=== PATIENT | male | born 2000 | race Caucasian/White ===

== ENCOUNTER 2024-08-12 17:44 | Inpatient (IN) | payer MEDICAID, SELFPAY ==
--- NOTE | ~2024-08-12 | CT_ITS ---
CLINICAL HISTORY: Diffuse abdominal pain causing DKA CT of the abdomen and pelvis without intravenous contrast. No comparison. Findings: The liver is upper limits of normal in size. No definite gallstones are seen. No renal or ureteral stones. No hydronephrosis. The spleen and pancreas are unremarkable. There is moderate stool in the colon. No definite diverticulitis is seen. Suspect previous appendectomy. No bowel obstruction. The bladder is nondilated. There is a trace amount of fluid in the pelvis. There is mild nonspecific rectosigmoid wall thickening. Impression: Mild rectosigmoid wall thickening may be incidental. Mild colitis /proctitis is technically a possibility. Trace amount of fluid in the pelvis. Other findings as above. This document has been electronically signed by: Julio Whitfield MD on 08/12/2024 20:05:43
[2024-08-12 18:00] VITALS: BP 125/73; PULSE 55; RESP 18; TEMP 36.3; O2SAT 99; BMI 23.1
--- NOTE | 2024-08-12 18:01 | ED_ITS ---
HPI - Nausea/Vomiting/Diarrhea General Chief complaint: General Medical Stated complaint: diabetic high feels weak Time Seen by Provider: 08/12/24 18:21 Source: patient and family Mode of arrival: ambulatory Limitations: no limitations History of Present Illness ED Provider: DR. Chinchilla HPI Narrative: 24-year-old male history of insulin-dependent diabetes with history of DKA presented today with 2 days of fever, upper respiratory symptoms, coughing, he also complaining of diffuse abdominal pain associated with nausea, vomiting, and nonbloody watery diarrhea, patient is unable to take p.o. intake stated that his blood sugar at home was running high. No sick contacts, no recent travel, no prolonged immobilization, no lower extremity swelling or tenderness. Related Data Allergies Allergy/AdvReac Type Severity Reaction Status Date / Time No Known Allergies Allergy Verified 08/12/24 18:02 Review of Systems 2 Review of Systems: All other systems are reviewed and are negative Constitutional: Reports as per HPI and Reports no additional constitutional complaints Eyes: Reports as per HPI and Reports no additional eye complaints Reports system reviewed and no additional complaints, except as documented Cardiovascular: Reports as per HPI and Reports no additional cardiovascular complaints Respiratory: Reports as per HPI and Reports no additional respiratory complaints Gastrointestinal: Reports as per HPI and Reports no additional gastrointestinal complaints Genitourinary: Reports no additional female genitourinary complaints Musculoskeletal: Reports no additional musculoskeletal complaints Skin/Breast: Reports system reviewed and no additional complaints, except as docu Psychiatric: Reports no additional psychiatric complaints Endocrine: Reports no additional endocrine complaints Hematologic/Lymphatic: Reports no additional hematologic/lymphatic complaints Allergic/Immunologic: Reports no additional allergic/immunologic complaints Reports system reviewed and no additional complaints, except as documented and Reports Abnormal speech present [facility] Social History Social History Smoked in Last 30 Days: No Use of substances other than those prescribed or required for medical reasons: Yes Substance Use Type: Marijuana Substance Use Frequency: Occasionally Advance Directives: No Advance Directives Information Provided: No Do you have a plan to hurt others: No Plan Physical Exam 2 Vital Signs: Vital Signs: Last Vital Signs Temp 99.9 F 08/12/24 21:04 Pulse 50 08/12/24 21:04 Resp 16 08/12/24 21:04 BP 128/69 08/12/24 21:04 Pulse Ox 99 08/12/24 21:04 O2 Del Method Room Air 08/12/24 21:04 BMI result Body Mass Index 23.1 Vital signs have been reviewed and appear to be correct. Blood pressure elevated. Heart rate normal. Respiratory rate normal. Temperature normal. Oxygen saturation normal. Appearance: Alert. Oriented X3. No acute distress. Head: Normal external exam. Normocephalic. Atraumatic. No [place] signs noted. No raccoon eyes noted Eyes: PERRLA. EOMI. Conjunctiva and sclera normal. Eyelids normal. ENT: TM's Normal. Pharynx normal. Uvula midline. Dry mucous membranes. No trismus noted. No drooling noted. No muffled voice noted. Neck: Normal inspection. Neck supple. FROM. No adenopathy. Thyroid Normal. No meningeal signs. No neck mass noted. CVS: Normal heart rate and rhythm. Heart sound normal. No murmurs noted. Pulses normal throughout. Respiratory: No respiratory distress. Painless inspiration. Breath sounds normal. No wheezes/rales/rhonchi noted. Chest nontender. No accessory muscle usage noted or decreased air movement noted. Abdomen: Soft, diffuse tenderness, no rebound tenderness, no guarding. Bowel sounds normal in all 4 quadrants. No distention noted. No organomegaly noted. No visible injury noted. Back: No CVA tenderness. Full range of motion noted. Skin: Skin warm and dry. Normal skin color. Normal skin turgor. No rashes/lesions/lacerations noted. Extremities: No lower extremity edema. Extremities exhibit normal range of motion. Extremities nontender. Neuro: Oriented X 3. Cranial nerve exam: II-XII are grossly intact No motor deficit. No sensory deficit. Reflexes normal. Course Course Course Narrative: This is an RME: Additional HPI, ROS, PE not included below will be deferred to primary provider. RME assessment and note performed by: Erica Vides PA-C This is a 13-blcu-fbe-male, type 1 diabetic on insulin, who presents to the ER with complaints of abdominal pain, nausea, diarrhea, sore throat since this AM. Hx of DKA as a child, sxs feel similar. Plan: bring back Reevaluation(s) Reevaluation #1: 24-year-old male with type 1 diabetes managed by insulin presented with intractable vomiting, patient is positive for influenza A, no discrete DKA. Patient received 3 L of normal saline in the ED with multiple doses of Zofran for nausea and vomiting with persistent of inability to tolerate p.o. intake, patient at risk for DKA. Will admit. Time: 21:37 Medications Administered Discontinued Medications Generic Name Dose Route Start Last Admin Trade Name Freq PRN Reason Stop Dose Admin Sodium Chloride 1,000 mls @ 999 mls/hr 08/12/24 18:31 08/12/24 20:25 Ns IV 08/12/24 19:31 Infused .Q1H1M ONE Infusion Sodium Chloride 1,000 mls @ 999 mls/hr 08/12/24 18:57 08/12/24 20:25 Ns IV 08/12/24 19:57 Infused .Q1H1M ONE Infusion Ketorolac Tromethamine 15 mg 08/12/24 20:55 08/12/24 21:06 Ketorolac Tromethamine 15 Mg/Ml Vial IVPUSH 08/12/24 20:56 15 mg ONCE ONE Administration Ondansetron HCl 4 mg 08/12/24 18:35 08/12/24 18:59 Ondansetron Hcl 4 Mg/2 Ml Vial IVPUSH 08/12/24 18:36 4 mg ONCE ONE Administration Ondansetron HCl 4 mg 08/12/24 20:55 08/12/24 21:07 Ondansetron Hcl 4 Mg/2 Ml Vial IVPUSH 08/12/24 20:56 4 mg ONCE ONE Administration Medical Decision Making Differential Diagnosis Differential Diagnoses: The differential diagnosis associated with the presentation includes (DKA, hyperglycemia, influenza a, COVID-19 infection, RSV, colitis, gastroenteritis, gastritis, dehydration, electrolyte derangement, severe anemia.) Admission/Observation Consideration of admission/observation: Escalation of care including admission/observation considered Lab Data MDM Lab Attestation statement: I reviewed the patient's lab results. 08/12/24 18:28 08/12/24 18:28 Labs: Lab Results 08/12/24 08/12/24 08/12/24 Range/Units 18:06 18:28 18:31 WBC 7.1 (4.8-10.8) X10*3/uL RBC 5.14 (4.60-5.80) X10*6/uL Hgb 14.8 (14.0-18.0) g/dl Hct 43.1 (42.0-52.0) % MCV 83.9 (80.0-98.0) fL MCH 28.8 (27.0-33.0) pg MCHC 34.3 (31.0-36.0) g/dl RDW 12.7 (11.0-16.0) % Plt Count 412 H (160-400) X10*3/uL MPV 10.6 (9.4-12.4) fL Immature Gran % (Auto) 0.3 (0.0-0.4) % Neut % (Auto) 64.9 (45-73) % Lymph % (Auto) 16.2 L (20-40) % [place] % (Auto) 17.2 H (2-11) % Eos % (Auto) 0.0 (0-4) % Baso % (Auto) 1.4 (0-2) % Lymph # (Auto) 1.1 L (1.2-4.9) X10*3/uL [place] # (Auto) 1.2 (0.1-1.2) X10*3/uL Eos # (Auto) 0.0 (0.0-0.4) X10*3/uL Baso # (Auto) 0.1 (0.0-0.2) X10*3/uL Abs Immat Gran (auto) 0.02 (0.00-0.03) X10*3/uL Absolute Neuts (auto) 4.6 (2.0-8.3) x10*3/uL Absolute Nucleated RBC 0.000 (0.0-0.012) X10*3/uL Nucleated RBC % (auto) 0.0 (0.0-0.2) /100WBC VBG pH 7.46 H (7.32-7.43) VBG pCO2 28 mmHg VBG pO2 21 mmHg VBG HCO3 20 L (22-26) mmol/L VBG O2 Saturation < 30.0 % VBG Base Excess -1.3 mmol/L Sodium 138 (135-145) mmol/L Potassium 4.4 (3.3-5.1) mmol/L Chloride 104 (96-108) mmol/L Carbon Dioxide 19 L (22-29) mmol/L Anion Gap 19 (12-20) BUN 11 (9-16) mg/dL Creatinine 0.95 (0.5-1.4) mg/dL Estim Creat Clear Calc 128.5 Estimated GFR > 60 POC Glucose 138 H (60-115) mg/dL Random Glucose 172 H (60-115) mg/dL Calcium 9.8 (8.4-10.2) mg/dL Magnesium 1.8 (1.6-2.6) mg/dL Total Bilirubin 0.5 (0.0-1.0) mg/dL Direct Bilirubin 0.2 (0.0-0.5) mg/dL AST 27 (5-37) U/L ALT 22 (0-40) U/L Alkaline Phosphatase 73 (39-117) U/L Troponin I High Sens < 2.7 (<3.5-35.0) ng/L Total Protein 8.2 H (6.5-8.0) g/dL Albumin 4.7 (3.5-5.0) g/dL Beta-Hydroxybutyrate 2.96 H (0.02-0.27) mmol/L Influenza Type A (PCR) (Negative) Influenza Type B (PCR) (Negative) RSV RNA Qual (PCR) (Negative) SARS-CoV-2 RNA (RT-PCR) (Negative) S. pyogenes GrpA [place] (Negative) 08/12/24 08/12/24 Range/Units 19:19 20:49 WBC (4.8-10.8) X10*3/uL RBC (4.60-5.80) X10*6/uL Hgb (14.0-18.0) g/dl Hct (42.0-52.0) % MCV (80.0-98.0) fL MCH (27.0-33.0) pg MCHC (31.0-36.0) g/dl RDW (11.0-16.0) % Plt Count (160-400) X10*3/uL MPV (9.4-12.4) fL Immature Gran % (Auto) (0.0-0.4) % Neut % (Auto) (45-73) % Lymph % (Auto) (20-40) % [place] % (Auto) (2-11) % Eos % (Auto) (0-4) % Baso % (Auto) (0-2) % Lymph # (Auto) (1.2-4.9) X10*3/uL [place] # (Auto) (0.1-1.2) X10*3/uL Eos # (Auto) (0.0-0.4) X10*3/uL Baso # (Auto) (0.0-0.2) X10*3/uL Abs Immat Gran (auto) (0.00-0.03) X10*3/uL Absolute Neuts (auto) (2.0-8.3) x10*3/uL Absolute Nucleated RBC (0.0-0.012) X10*3/uL Nucleated RBC % (auto) (0.0-0.2) /100WBC VBG pH (7.32-7.43) VBG pCO2 mmHg VBG pO2 mmHg VBG HCO3 (22-26) mmol/L VBG O2 Saturation % VBG Base Excess mmol/L Sodium (135-145) mmol/L Potassium (3.3-5.1) mmol/L Chloride (96-108) mmol/L Carbon Dioxide (22-29) mmol/L Anion Gap (12-20) BUN (9-16) mg/dL Creatinine (0.5-1.4) mg/dL Estim Creat Clear Calc Estimated GFR POC Glucose 202 H (60-115) mg/dL Random Glucose (60-115) mg/dL Calcium (8.4-10.2) mg/dL Magnesium (1.6-2.6) mg/dL Total Bilirubin (0.0-1.0) mg/dL Direct Bilirubin (0.0-0.5) mg/dL AST (5-37) U/L ALT (0-40) U/L Alkaline Phosphatase (39-117) U/L Troponin I High Sens (<3.5-35.0) ng/L Total Protein (6.5-8.0) g/dL Albumin (3.5-5.0) g/dL Beta-Hydroxybutyrate (0.02-0.27) mmol/L Influenza Type A (PCR) POSITIVE A (Negative) Influenza Type B (PCR) NEGATIVE (Negative) RSV RNA Qual (PCR) NEGATIVE (Negative) SARS-CoV-2 RNA (RT-PCR) NEGATIVE (Negative) S. pyogenes GrpA [place] Negative (Negative) Independent Interpretation I performed an independent interpretation of an: CT Scan (Abdomen and pelvis:Mild rectosigmoid wall thickening may be incidental. Mild colitis /proctitis is technically a possibility. Trace amount of fluid in the pelvis. Other findings as above.) Radiology Impression Discussion of test interpretation with radiology: I have reviewed the radiologist's reading. Discharge Plan Discharge Clinical Impression: Influenza A, Intractable vomiting, Hyperglycemia Patient Disposition: Admitted As Inpatient Print Language: Kiswahili
[2024-08-12 18:09] LABS: Glucose, Whole Blood 138 mg/dL (60-115)
--- NOTE | 2024-08-12 18:10 | ECG_ITS ---
Test Reason : WEAKNESS Blood Pressure : */* mmHG Vent. Rate : 44 BPM Atrial Rate : 44 BPM P-R Int : 124 ms QRS Dur : 98 ms QT Int : 464 ms P-R-T Axes : -16 70 57 degrees QTcB Int : 396 ms Marked sinus bradycardia with sinus arrhythmia Abnormal ECG No previous ECGs available Referred By: Erica Vides Electronically Signed By: HELADIO ROWAN
[2024-08-12 18:32] LABS: MANUAL DIFF FLAG NO
[2024-08-12] MEDS: 0.9 % Sodium Chloride 1,000 ML 999 ML IV ×3 (18:32→21:57)
[2024-08-12 18:37] LABS: VBG Base Excess -1.3 mmol/L; VBG HCO3 20 mmol/L (22-26); VBG O2 % Saturation < 30.0 %; VBG pCO2 28 mmHg; VBG pH 7.46 (7.32-7.43); VBG pO2 21 mmHg
--- NOTE | 2024-08-12 18:39 | PC.NURSE ---
Pt comes to ED today with c/o elevated POC, n/v x2 days. A&Ox3 Pt actively dry heaving and vomiting. POC in triage WNL however Pt reports giving himself insulin prior to arrival. 20g to LAC IVF per MAR. Awaiting alb results.
[2024-08-12 18:40] LABS: Venous Blood Gas Refer to POC result
[2024-08-12 18:44] LABS: Basophils Absolute Auto 0.1 X10*3/uL (0.0-0.2); Basophils Percent Auto 1.4 % (0-2); Hematocrit 43.1 % (42.0-52.0); Hemoglobin 14.8 g/dl (14.0-18.0); Imm Gran Abs Auto 0.02 X10*3/uL (0.00-0.03); Imm Gran Pct Auto 0.3 % (0.0-0.4); Lymphocytes Absolute Auto 1.1 X10*3/uL (1.2-4.9); Lymphocytes Percent Auto 16.2 % (20-40); Mean Corpuscular HGB Conc 34.3 g/dl (31.0-36.0); Mean Corpuscular Hemoglobin 28.8 pg (27.0-33.0); Mean Corpuscular Volume 83.9 fL (80.0-98.0); Mean Platelet Volume 10.6 fL (9.4-12.4); Monocytes Absolute Auto 1.2 X10*3/uL (0.1-1.2); Monocytes Percent Auto 17.2 % (2-11); Neutrophils Absolute Auto 4.6 x10*3/uL (2.0-8.3); Neutrophils Percent Auto 64.9 % (45-73); Platelet Count 412 X10*3/uL (160-400); Red Blood Count 5.14 X10*6/uL (4.60-5.80); Red Cell Distribution Width 12.7 % (11.0-16.0); White Blood Count 7.1 X10*3/uL (4.8-10.8)
[2024-08-12 18:53] LABS: Alanine Aminotransferase 22 U/L (0-40); Albumin Level 4.7 g/dL (3.5-5.0); Alkaline Phosphatase 73 U/L (39-117); Anion Gap 19 (12-20); Aspartate Amino Transferase 27 U/L (5-37); Beta-Hydroxybutyrate 2.96 mmol/L (0.02-0.27); Bilirubin Direct 0.2 mg/dL (0.0-0.5); Bilirubin Total 0.5 mg/dL (0.0-1.0); Blood Urea Nitrogen 11 mg/dL (9-16); Calcium 9.8 mg/dL (8.4-10.2); Carbon Dioxide 19 mmol/L (22-29); Chloride 104 mmol/L (96-108); Creatinine Clr Calc Pharmacy 128.5; Estimated Glomerular Filt Rate > 60; Glucose Random 172 mg/dL (60-115); Magnesium 1.8 mg/dL (1.6-2.6); Potassium 4.4 mmol/L (3.3-5.1); Sodium 138 mmol/L (135-145); Total Protein 8.2 g/dL (6.5-8.0)
[2024-08-12] MEDS: ondansetron HCL 4 MG/2 ML VIAL IVPUSH ×2 (18:59→21:07)
[2024-08-12 19:01] LABS: Troponin-I High Sensitivity < 2.7 ng/L (<3.5-35.0)
--- NOTE | 2024-08-12 19:09 | PC.NURSE ---
assumed care of patient, patient in stretcher c/o of diffuse abdominal pain and nausea last medicated 20 minutes ago. IVF running at this time and awaiting lab result.
--- OUTSIDE RECORDS SUMMARY | 2024-08-12 19:09 | XMS_ITS | Continuity of Care Document ---
Author Organization [facility] Address [address] [place] [address] Phone Care Team Providers Care Cocoa Room Operator Name Role Phone Larry Grimm MD Unavailable Unavailable Allergies, Adverse Reactions, Alerts Substance Reaction Status Criticality No Known Allergies Active No Inform ation Medications Medication Instructions Dosage Effective Dates (start - stop) Status Comments lithium carbonate 300 mg capsule take 2 capsule by oral route every day for at bedtime 600 MG - Active Advance Directives Directive Yes / No Effective Date File Name No Information Encounters Encounter Description Practice Location Reason(s) For Visit Diagnoses Date Provider [facility], [address] [place] [address], [address] [place] [address] tel:[phone] OP A NBrit 40 Rushing No Information 2023 Alfa Juarez. [address] [place] [address], [address] [place] [address], . tel:[phone] [facility], [address] [place] [address], [address] [place] [address] tel:[phone] OP A NBrit 40 Rushing Medication Management (chief complaint)Dep ression (chief complaint) 2023 Alfa Juarez. [address] [place] [address], [address] [place] [address], . tel:[phone] [facility], [address] [place] [address], [address] [place] [address] tel:[phone] OP A NBrit 40 Rushing Medication Management (chief complaint)Dep ression (chief complaint) 2023 Alfa Juarez. [address] [place] [address], [address] [place] [address], . tel:[phone] [facility], [address] [place] [address], [facility], tel:[phone] OP A NBrit 40 Rushing Medication Management (chief complaint)Dep ression (chief complaint) Body mass index (BMI) 23.0-23.9, adult 2023 Alfa Juarez. [address] [place] [address], [address] [place] [address], . tel:[phone] [facility], [address] [place] [address], [facility], tel:[phone] OP A NBrit 40 Rushing 2023 Batsheva Harris. [address] [place] [address], [address] [place] [address], [place]. tel:[phone] [facility], [address] [place] [address], [facility], tel:[phone] OP A NBrit 40 Rushing 2023 Batsheva Harris. [address] [place] [address], [address] [place] [address], [place]. tel:[phone] [facility], [address] [place] [address], [facility], tel:[phone] OP A NBrit 40 Rushing Medication Management (chief complaint)Dep ression (chief complaint) 2023 Alfa Juarez. [address] [place] [address], [address] [place] [address], . tel:[phone] [facility], [address] [place] [address], [facility], tel:[phone] OP A NBrit 40 Rushing Medication Management (chief complaint)Dep ression (chief complaint) 2023 Alfa Juarez. [address] [place] [address], [address] [place] [address], [place]. tel:[phone] [facility], [address] [place] [address], [facility], tel:[phone] OP A NBrit 40 Rushing 2022 Kevin Rosenberg. [address] [place] [address], [address] [place] [address], [place]. tel:[phone] [facility], [address] [place] [address], [facility], tel:[phone] OP A NBrit 40 Rushing Medication Management (chief complaint)Dep ression (chief complaint) Body mass index (BMI) 22.0-22.9, adult 2022 Alfa Juarez. [address] [place] [address], [address] [place] [address], . tel:[phone] [facility], [address] [place] [address], [facility], tel:[phone] OP A NBrit 40 Rushing 2022 Kevin Shakira. [address] [place] [address], [address] [place] [address], . tel:[phone] [facility], [address] [place] [address], [facility], tel:[phone] OP A NBrit 40 Rushing Body mass index (BMI) 22.0-22.9, adult 2022 Alfa Juarez. [address] [place] [address], [address] [place] [address], [place]. tel:[phone] [facility], [address] [place] [address], [facility], tel:[phone] OP A NBrit 40 Rushing 2022 Alphonsoramsey Murrell. [address] [place] [address], [address] [place] [address], . tel:[phone] As per patient privacy policy some of the clinical information may not be visible. Family History Family Member Type Diagnosis Age At Onset No Information Payers Payer name Insurance type Covered green party ID Arelis bell(s) Vickie Burr [id number] Social History Type Description Quantity Date Captured Comments Sex Male Smoking Status No Information Sexual Orientation Straight or heterosexual Feb Gender Identity Male Chief Complaint And Reason For Visit No Information Plan Of Treatment Date Type Action Status Goal Dietary manageme nt education, guidance, and counseling completed Goal Tobacco cessation counseling completed Goal Lifestyle education regardin g diet completed Goal Tobacco cessation counseling completed Goal Dietary manageme nt education, guidance, and counseling completed Future Order: Lab Order [facility] Cu stom Tox Panel v3 ([id number]), Sent on: Sent Future Order: Lab Order CBC (INC LUDES DIFF/PLT) ([id number]), Sent on: Sent Future Order: Lab Order COMPREHE NSIVE METABOLIC PANEL ([id number]), Sent on: Sent Future Order: Lab Order VALPROIC ACID ([id number]), Sent on: Sent Future Order: Lab Order CBC (INC LUDES DIFF/PLT) ([id number]), Sent on: Sent Future Order: Lab Order COMPREHE NSIVE METABOLIC PANEL ([id number]), Sent on: Sent Future Order: Lab Order HEMOGLOB IN A1C (496), Sent on: Sent Future Order: Lab Order LIPID PA JAY ([id number]), Sent on: Sent Future Order: Lab Order TSH, 3RD GENERATION ([id number]), Sent on: Sent Future Order: Lab Order VALPROIC ACID ([id number]), Sent on: Sent Future Order: Lab Order VITAMIN B12/FOLATE, SERUM PANEL ([id number]), Sent on: Sent Future Order: Lab Order VITAMIN D,25-OH,TOTAL,IA ([id number]), Sent on: Sent History Of Present Illness Encounter Date Complaint History Of Prese nt Illness Depression The client repor ts functioning as somewhat difficult. The client presents with difficulty concentrating but denies depressed mood, difficulty falling asleep, difficulty staying asleep, diminished interest or pleasure, feelings of invulnerability, increased energy or thoughts of or suicide. The client denies any chronic pain, headache, irritability, nausea, sweating, trembling, urinary frequency, vomiting and weight gain. Medication Management Jewel perez for follow-up on bipolar type II and ADHD. He is accompanied [place] He has been taking his Depakote and Strattera as ordered and without side effect. He reports a stable mood with no more than 1 day of depression and 1 day of increased energy at a time and not very frequently. There is no suicidal ideation and PHQ-9 is 7 out of 27. He reports his concentration is still impaired and the Strattera no longer has any real effect on improving it. He would like to try a stimulant which I think might be reasonable. Only substance use is marijuana which she does not use daily and I explained to him that he would have to reduce his use or stop it if he wants to use a stimulant so the cannabis does not interfere with his concentration and he agrees to this. Medication Management Jewel angel for treatment of Bipolar II Disorder, ADHD, and nicotine dependence. The patient reports he is medication compliant and taking Depakote and Strattera every day as prescribed. Tolerating medications well. He did mention that Strattera works well with focus, but does have some complaints about task-switching and gets tunnel vision after a few hours and this effect is not distressing. The patient denies feeling depressed and reports mood is good . The patient denies manic symptoms. The patient says it is difficult to fall asleep and stay asleep at night and gets about four to five hours of sleep at night because he does not have air conditioning at his house. The patient reports he starts sweating and stays up once he wakes up from the heat. The patient denies feeling depressed. The patient denies manic symptoms. He reports that he has applied for jobs but remains unemployed and is frustrated with the process of finding a job. The patient is considering using NRT for quitting cigarettes but wants to defer trying to quit. The patient remains smoking cannabis and reports he has not increased his intake and amount used has been consistent. Depression The client does not present with depressed mood, difficulty concentrating, difficulty falling asleep, difficulty staying asleep, diminished interest or pleasure, excessive worry, fatigue, restlessness or thoughts of or suicide. The client denies any chronic pain, headache, irritability, nausea, sweating, trembling, urinary frequency, vomiting and weight gain. Depression The client repor ts functioning as somewhat difficult. The client presents with difficulty concentrating, difficulty falling asleep and difficulty staying asleep but denies decreased need for sleep, depressed mood, diminished interest or pleasure, excessive worry, fatigue, feelings of guilt, increased energy or thoughts of or suicide. The client denies any chronic pain, headache, irritability, nausea, sweating, trembling, urinary frequency, vomiting and weight gain. Medication Management Jewel ret urns for tx of Bipolar II depressed, ADHD, nicotine dependence. He reports that he is not depressed and PHQ9 is 9/27 with some issues with sleep and concentration. There is no SI or psychosis. He does not present with hypomania and no symptoms of this reported in last several months. He is stressed by difficulty finding a job; still lives with grandparents. He feels stable on his VPA without side effects. Doubling the strattera to 80 mg helped for a while with concentration then seemed to wear off. He is seeing his commercial lines account executive and A1C is around 7; also seeing neuro re neuropathy. He is back in therapy but not sure he sees the point of it.HE is still vaping nicotine but less than before and also using less cannabis; I encouraged him to quit nicotine especially with risks from diabetes. Depression The client repor ts functioning as somewhat difficult. The client presents with difficulty concentrating and fatigue but denies decreased need for sleep, depressed mood, difficulty falling asleep, difficulty staying asleep, diminished interest or pleasure, feelings of guilt, feelings of invulnerability, increased energy, hallucinations, paranoia, restlessness or thoughts of or suicide. The client denies any chronic pain, headache, irritability, nausea, sweating, trembling, urinary frequency, vomiting and weight gain. Medication Management Jewel ret urns for tx of bipolar II and ADHD. He does well on VPA without side effects. Minimal depression, PHQ9 is 7/27 and no SI. Sleep is good, has some fatigue. He denies any hypomania in last several months and none noted on exam tonight. He reports that strattera 40 mg had a tendency to help him focus better but was not fully effective, he ran out and didn't get a refill has been off for a while but tolerated it well. He just lost a job and is looking for a new one; things are going well with his girlfriend and him. He has cut out vaping and dramatically reduced cannabis use. Blood sugars still not stable although sees endocrine and on insulin. Medication Management Jewel eagle urns for tx of Bipolar II and ADHD. He is euthymic and no signs of depression reports no hypomanic symptoms in last several months on VPA; no side effects of VPA. There is no SI. He still uses daily cannabis in evening but is willing to reduce use as it will conflict with trying meds for his ADHD. He quit smoking for last 2 months and cut back on vaping. He is looking for work and finding it a bit frustrating. He still fluctuates between periods of poor attention and task completion and periods of hyperfocus. Depression The client repor ts functioning as somewhat difficult. The client presents with difficulty concentrating, difficulty falling asleep, difficulty staying asleep and fatigue but denies depressed mood, diminished interest or pleasure, feelings of guilt or thoughts of or suicide. The client denies any chronic pain, headache, irritability, nausea, sweating, trembling, urinary frequency, vomiting and weight gain. Medication Management Jewel eagle chris for tx of probable bipolar ii and ADHD, also vaping nicotine again and using cannabis (does not wish to try to stop either at this time although I counseled him about them). His PHQ9 is 8 (3 points for poor concentration) and there is no SI. He denies being depressed and he denies hypomanic symptoms since last visit. He took the VPA until he ran out a week ago and tolerated it well. On it he felt less agarwal and less reactive to stress, didn't get labs done yet however. He still has significant chronic concentration difficulties. He brought in the ASRS filled out by his sister who sees 9/18 symptoms mostly inattentive, and by his grandparents based on when he was a child who record 16/18 symptoms in clinical range when he was a child, all consistent with his self report and previous ADHD diagnosis as a child. Depression There is improve ment of initial symptoms. The client reports functioning as somewhat difficult. The client presents with difficulty concentrating but denies decreased need for sleep, depressed mood, difficulty falling asleep, difficulty staying asleep, diminished interest or pleasure, fatigue, feelings of guilt, increased energy, hallucinations, paranoia or thoughts of or suicide. The client denies any chronic pain, headache, irritability, nausea, sweating, trembling, urinary frequency, vomiting and weight gain. Instructions Date Instruction Additional Infor tigreion Giving encouragement to exercise Related to Body mass index [BMI] 23.0-23.9, adult Dietary management e ducation, guidance, and counseling Related to Body mass index [BMI] 23.0-23.9, adult Lifestyle education regarding di et Related to Body mass index [BMI] 22.0-22.9, adult Giving encouragement to exercise Related to Body mass index [BMI] 22.0-22.9, adult Giving encouragement to exercise Related to Body mass index [BMI] 22.0-22.9, adult Dietary management e ducation, guidance, and counseling Related to Body mass index [BMI] 22.0-22.9, adult As per patient privacy policy some of the clinical information may not be visible. Assessments Type Assessment Date No Information
--- OUTSIDE RECORDS SUMMARY | 2024-08-12 19:09 | XMS_ITS | Clinical Summary ---
Author Organization [facility] Address [address] [place] [address] Care Team Providers Care Platen Press Operator Apprentice Name Role Phone Larry Pringle MD Primary Care Provider [phone] Allergies No known active allergies Medications Medication Sig Dispensed Refills Start Date End Date Status glucose blood test strip Use to test BG 7 x per day 0 09/13/2016 Active Urine Glucose-Ketones Test STRP For testing urine when blood glucose >300 0 06/04/2015 Active acetone, urine, test (Ketostix) strip Use to test urine when blood sugars over 250 on 2 consecutive checks and when ill 25 each 0 07/04/2020 Active Additional Information Patient not taking.Reason: Other, Reported on 04/21/2023 Blood Glucose Monitoring Suppl (OneTouch Verio Flex System) w/Device KITIndications:Type 1 diabetes mellitus with diabetic polyneuropathy (HCC) 1 Device by Does not apply route continuous. 1 kit 0 09/22/2022 Active glucose blood (OneTouch Verio) test stripIndications:Typ e 1 diabetes mellitus with diabetic polyneuropathy (HCC) Use to test blood sugar 4 times daily as instructed 200 each 12 09/22/2022 Active OneTouch Delica Lancets 33G MISCIndications:Type 1 diabetes mellitus with diabetic polyneuropathy (HCC) Use to test blood sugar 4 times daily as instructed. 200 each 12 09/22/2022 Active Glucagon (Baqsimi Two Pack) 3 MG/DOSE POWD spray or apply 3 mg inside Nose as needed (for severe hypoglycemia). 1 each 1 04/21/2023 Active Continuous Blood Gluc Sensor (Dexcom G7 Sensor) MISCIndications:Type 1 diabetes mellitus with diabetic polyneuropathy (HCC) 1 Unspecified by Does not apply route continuous. Change every 10 days 9 each 1 10/09/2023 Active Insulin Pen Needle 32G X 4 MM MISCIndications:Type 1 diabetes mellitus with diabetic polyneuropathy (HCC) Use to inject insulin 4 times daily 200 each 6 01/15/2024 Active gabapentin (NEURONTIN) 300 MG capsuleIndications:T ype 1 diabetes mellitus with diabetic polyneuropathy (HCC),Paresthesia Take 2 capsules (600 mg total) by mouth 3 (three) times a day. 180 capsule 2 04/03/2024 Active Fiasp FlexTouch 100 UNIT/ML SOPN INJECT 5-15 UNITS UNDER THE SKIN 3 (THREE) TIMES A DAY BEFORE MEALS. 0 03/26/2024 Active omeprazole (PriLOSEC) 20 MG capsule TAKE 1 CAPSULE BY MOUTH EVERY DAY IN THE MORNING BEFORE BREAKFAST 0 02/03/2024 Active Insulin Degludec (Tresiba FlexTouch) 100 UNIT/ML SOPNIndications:Type 1 diabetes mellitus with diabetic polyneuropathy (HCC) Inject 35 Units under the skin daily. 45 mL 3 04/16/2024 Active Injection Device for Insulin (InPen 298-Cixm-Yaqpseh-Huma sp) DEVIIndications:Type 1 diabetes mellitus with diabetic polyneuropathy (HCC) 1 Device by Does not apply route 3 (three) times a day with meals. 1 each 0 04/16/2024 Active Active Problems Problem Noted Date Diagnosed Date Mixed hyperlipidemia 12/08/2020 Type 1 diabetes mellitus with diabetic polyneuro guillaume 07/04/2020 DKA, type 2, not at goal 01/18/2020 DKA, type 1, not at goal 01/18/2020 Social History Tobacco Use Types Packs/Day Years Used Date Smoking Tobacco: Unknown Tobacco Cessation:Counseling Given: Not Answered Alcohol Use Standard Drinks/Week Comments Never 0 (1 standard drink = 0.6 oz pur e alcohol) Sex and Gender Information Value Date Recorded Sex Assigned at Male 01/17/2020 10:22 PM EDT Gender Identity Male 04/15/2024 12:21 PM EDT Sexual Orientation Not on file Job Start Date Occupation Industry Not on file Not on file Not on file Last Filed Vital Signs Vital Sign Reading Time Taken Comments Blood Pressure 108/71 04/16/2024 11:25 AM EDT Pulse 76 04/16/2024 11:25 AM EDT Temperature 36.4 ??C (97.5 ??F) 03/04/2021 11:47 AM E DT Respiratory Rate 11 01/20/2020 12:00 PM EDT Oxygen Saturation 99% 01/20/2020 12:00 PM EDT Inhaled Oxygen Concentration - - Weight 77.7 kg (171 lb 3.2 oz) 04/16/2024 11:25 AM EDT Height 182.9 cm (6') 10/06/2023 9:45 AM EDT Body Mass Index 23.22 10/06/2023 9:45 AM EDT Plan of Treatment Health Maintenance Due Date Last Done Comments Hepatitis C Screening 1998 COVID-19 Vaccine (#1) 1998 Pneumococcal Vaccine (1 of 2 - PCV) 2004 DTap / Tdap / Td (5 - Tdap) 2009 06/0 06/1999, 1998, 1998, Additional history exists Depression Screening 2010 Diabetes: Eye Exam (No Retinopathy) 2016 Diabetes: Foot Exam 2016 Preventative Health Evaluation 2016 Influenza Vaccine (#1) 2024 Hemoglobin A1C Due 07/13/2024 01/11/2024, 0 10/04/2023, 04/17/2023, Additional history exists Diabetes: Microalbumin Test 01/10/2025 01/11/2024, 0 07/07/2020 Hepatitis B Vaccines Completed 1998, 1998, 1998 RSV Ped < 20 months Aged Out No longe r eligible based on patient's age to complete this topic Advance Directives For more information, please contact: [phone] Latest Code Status on File Code Status Date Activated Date Inactivated Comments Full Code 01/18/2020 6:30 AM 01/20/2020 9:42 PM This code status was ascertained in the following way: discussion with patient . Care Teams Platen Press Operator Apprentice Relationship Specialty Start Date End Date Larry Pringle MD PCP - General Internal Medicine 08/07/20
--- OUTSIDE RECORDS SUMMARY | 2024-08-12 19:09 | XMS_ITS | Clinical Summary ---
Author Organization [facility] Address [address] [place] [address] Care Team Providers Care Tanker Driver Name Role Phone Lrary Pringle MD Primary Care Provider [phone] Cami Bush PhD Unavailable [phone]- [phone] Holley Fuller MD Unavailable [phone] Reyes Stephen PsyD Unavailable [phone] Cassi Berkowitz RN Unavailable [phone] Lisa Arita STEEL RULE DIE MAKER APPRENTICE Unavailable [phone] Jl Mcclain APRN Unavailable [phone] Darnell Cruz MD Unavailable [phone] Allergies No known active allergies Medications Medication Sig Dispensed Refills Start Date End Date Status glucagon powder (BAQSIMI) intranasal deviceIndication s:Hypoglycemia 3 mg into one nostril (left) once as needed (for severe hypoglycemia). Active insulin aspart (NovoLOG FlexPen) 100 UNIT/ML prefilled pen injectionIndicat ions:Type 1 Diabetes Mellitus Inject 5 Units under the skin 3 (three) times a day before meals. Plus correctional scale up to 30 units daily. Active insulin degludec (TRESIBA FLEXTOUCH) 100 UNIT/ML prefilled pen injectionIndicat ions:Type 1 Diabetes Mellitus Inject 40 Units under the skin nightly. Active atomoxetine (Strattera) 100 MG capsule Take 1 capsule by mouth every 24 hours. 10/30/2023 Active Continuous Glucose Sensor (Dexcom G7 Sensor) Misc 1 UNSPECIFIED BY DOES NOT APPLY ROUTE CONTINUOUS. CHANGE EVERY 10 DAYS 08/10/2023 Active Continuous Glucose Transmitter (Dexcom G6 Transmitter) Misc Dexcom G6 Transmitter Quantity: 1 Refills: 0 Start: 25-Nov-202011/25/2020 Active divalproex er (DEPAKOTE ER) 500 MG 24 hr tablet Take 1,000 mg by mouth daily. 10/16/2023 Active OMEprazole (PriLOSEC) 20 MG capsuleIndicatio ns:Gastroesophag eal reflux disease without esophagitis TAKE 1 CAPSULE BY MOUTH EVERY DAY IN THE MORNING BEFORE BREAKFAST 90 capsule 1 08/05/2024 Active OMEprazole (PriLOSEC) 20 MG capsuleIndicatio ns:Gastroesophag eal reflux disease without esophagitis Take 1 capsule (20 mg total) by mouth every morning before breakfast. 90 capsule 2 11/08/2023 08/05/19 25 Discontinued Active Problems Problem Noted Date Diagnosed Date Metabolic acidosis 04/13/2022 Borderline personality disorder 09/30/2021 My Safety Plan 09/29/2021 Overview (09/29/2021): Images from the original note were not included. Wee Web No information on file. MY SAFETY PLAN Name: Jewel Rehman Date: 09/29/2021 MR#: [id number] The one thing that is most important to me and worth living for is: Money Step 1 - Warning Signs [thoughts, images, mood, situation, behavior] that a crisis may be developin. Pt stated I have none I go with the flow 2. 3. Step 2 - Coping strategies: things I can do to take my mind off of my problems without contacting others [relaxation technique; physical exercise] 1. Playing video games 2. Exercising 3. Spending time with pets Step 3 - People and social settings that provide distraction 1. Name: Sister Phone: 2. Name: Phone: 3. Place: my room is a neutral space 4. Place: Step 4 - People whom I can ask for help: 1. Name: Sister Phone: 2. Name: Phone: 3. Name: Phone: Step 5 - Professionals or agencies I can contact during a crisis 1. Name: Phone: 2. Name: Phone: 3. Name: Phone: Additional Resources: [place] infoline 211, Suicide Prevention Lifeline 4-573-483-PMUK (4912), Text Hello to 469622, 364 Step 6 - Making the environment safe/access to guns: No access to weapons, no stock piled medications This tool has been adapted from the [employer] Safety Plan [facility] Form 906624 R10-18 Pg 1 of 1 Cannabis use disorder, severe, dependence 2021 Overdose 09/26/2021 Lactic acidosis 09/26/2021 Hypokalemia 09/26/2021 Hypomagnesemia 09/26/2021 Dehydration 05/23/2021 Prolonged QT interval 05/23/2021 Diabetic ketoacidosis withou t coma associated with type 1 diabetes mellitus 11/20/2020 Thrombocytosis 07/25/2020 Anxiety and depression 07/25/2020 Noncompliance with medications 07/25/2020 High anion gap metabolic acidosis 07/17/2019 Hyponatremia 07/17/2019 Tachycardia 07/17/2019 Type 1 diabetes 07/17/2019 SIRS (systemic inflammatory response syndrome) 0 07/17/2019 Leukocytosis 07/17/2019 DKA (diabetic ketoacidosis) 06/30/2016 Overview (03/28/2023): Regulatory diagnosis update for 03/26/23 TRACIE (acute kidney injury) 06/30/2016 Hypernatremia 06/30/2016 DKA, type 1 06/30/2016 Resolved Problems Problem Noted Date Diagnosed Date Resolved Date COVID-19 04/13/2022 09/06/2023 DKA (diabetic ketoacidosis) 05/23/2021 09/07/2023 Major depressive disorder, r ecurrent severe without psychotic features 03/28/2021 09/30/2021 Dehydration with hypernatremia 06/30/2016 09/07/2023 Encounters Date Type Department Care Team Description 08/03/2024 Refill [facility] [facility] Larry Pringle [address] [facility] [address] [place] [phone] Venu Rebekah, COMMUNICATIONS MANAGER Gastroesophageal reflux disease without esophagitis from Last 3 Months Immunizations Name Administration Dates Next Due DTaP, Unspecified 11/25/1999, 9,1998,1998 Hep B, Unspecified 1998,1998, 998 Hib 11/25/1999, 9,1998,1998 IPV 05/05/1999,1998,1998 Influenza Inactivated/Split Preservative Free IM 04/05/2021(),07/26/2020() MMR 05/05/1999 Varicella 05/05/1999 Social History Tobacco Use Types Packs/Day Years Used Date Smoking Tobacco: Former Cigarettes Smokeless Tobacco: Never Alcohol Use Standard Drinks/Week Comments Not Currently 0 (1 standard drink = 0.6 oz pur e alcohol) AUDIT-C Answer Date Recorded Q1: How often do you have a drink containing alcohol? Never 04/13/2022 Q2: How many drinks containi ng alcohol do you have on a typical day when you are drinking? Patient does not drink Q3: How often do you have si x or more drinks on one occasion? Never 04/13/2022 PHQ-2 Answer Date Recorded PHQ-2 Total Score 2 11/08/2023 Sex and Gender Information Value Date Recorded Sex Assigned at Male 09/29/2021 11:52 AM EDT Gender Identity Male 09/29/2021 11:52 AM EDT Sexual Orientation Heterosexual (straight) 09/29 11:52 AM EDT Last Filed Vital Signs Vital Sign Reading Time Taken Comments Blood Pressure 118/72 11/08/2023 10:24 AM EDT Pulse 89 11/08/2023 10:24 AM EDT Temperature 36.6 ??C (97.8 ??F) 04/20/2022 2:23 PM ED T Respiratory Rate 18 04/20/2022 2:23 PM EDT Oxygen Saturation 97% 11/08/2023 10: 24 AM EDT Inhaled Oxygen Concentration - - Weight 78.8 kg (173 lb 12.8 oz) 024 10:24 AM EDT Height 182.9 cm (6') 11/08/2023 10:24 AM EDT Body Mass Index 23.57 11/08/2023 10:24 AM EDT Plan of Treatment Upcoming Encounters Date Type Department Care Team (Late st Contact Info) Description 11/11/2024 2:00 PM EDT Office Visit [facility]. Larry Pringle [address] [facility] [address] [place] [address] Larry Pringle MD [address] [facility] [address] [place] [address] Health Maintenance Due Date Last Done Comments Ophthalmology Exam 2008 DTaP/Tdap/Td Vaccines (5 - Tdap) 2009 11/25/1999, 1998, 1998, Additional history exists HPV Vaccines (1 - Male 3-dos e series) 2013 Pneumococcal Vaccine: Pediat mayela (0-5 Years) and At-Risk Patients (6 to 49 Years) (1 of 2 - PCV) 2017 Microalbumin/Creatinine Rati o Urine 07/07/2021 07/07/2020 Influenza Vaccine 01/25/2024 COVID-19 Vaccine ( - 2023-2 5 season) 2024 06/29/2021, 11/11/2020, 10/20/2020 Hemoglobin A1C 04/12/2024 01/11/2024, 09/24, 04/17/2023, Additional history exists Foot Exam 11/07/2024 11/08/2023, 10/24, 11/08/2023, Additional history exists Creatinine with GFR 01/10/2025 01/11/2024, 04/20/2022, 04/16/2022, Additional history exists Lipid Panel 01/10/2025 01/11/2024 Hepatitis B Vaccines Completed 1998, 1998, 1998 HIV Screening Completed 01/11/2024 Hepatitis C Virus Screening Completed 01/11/2024 Procedures Procedure Name Priority Date/Time Associated Diagnosis Comments HIV 1/2 AG/AB CMIA REFLEX TO CONFIRMATION Routine 01/11/2024 1:27 PM EDT Healthcare maintenance HEMOGLOBIN A1C WITH ESTIMATED AVERAGE GLUCOSE Routine 01/11/2024 1:27 PM EDT Healthcare maintenance LIPID PANEL REFLEX DIRECT LDL Routine 01/11/2024 1:27 PM EDT Healthcare maintenance COMPREHENSIVE METABOLIC PANEL Routine 01/11/2024 1:27 PM EDT Healthcare maintenance HEPATITIS C VIRUS (HCV) ANTIBODY Routine 01/11/2024 1:27 PM EDT from Last 3 Months or Most Recently Relevant to Health Maintenance Results * (ABNORMAL) Lipid Panel Reflex Direct LDL (01/11/2024 1:27 PM EDT) Cholesterol, Total 166 <200 mg/dL [facility] Cholesterol, HDL 44 > OR = 40 mg/dL [facility] Triglycerides 104 <150 mg/dL [facility] LDL Cholesterol 102(H) mg/dL (calc) [facility] Comment: Reference range: <100 Desirable range <100 mg/dL for primary prevention; ?? <70 mg/dL for patients with CHD or diabetic patients with > or = 2 CHD risk factors. LDL-C is now calculated using the Gilmar-Hernandez calculation, which is a validated novel method providing better accuracy than the Friedewald equation in the estimation of LDL-C. Gilmar VERNON et al. FAITH. 2013;310(19): 6218-0177 (http://education.[employer]/faq/GXC886) Cholesterol/HDL Ratio 3.8 <5.0 (calc) [facility] Non HDL Chol. (LDL+VLDL) 122 <130 mg/dL (calc) [facility] Comment: For patients with diabetes plus 1 major ASCVD risk factor, treating to a non-HDL-C goal of <100 mg/dL (LDL-C of <70 mg/dL) is considered a therapeutic option. Blood specimen (specimen) Blood specimen / Unknown 01/11/2024 1:27 PM EDT 01/11/2024 1:28 PM EDT Narrative [facility] - 01/12/2024 4:36 AM EDT FASTING:YES FASTING: YES [facility] COMMUNICATIONS MANAGER LAB BLOOD ORDERABLE S Performing Organization Address [facility] Co de Phone Number [employer] [address] [place] [phone] * HIV 1/2 Ag/Ab CMIA Reflex to Confirmation (01/11/2024 1:27 PM EDT) HIV Ag/Ab, 4th Gen NON-REACT LIZZIE NON-REACT LIZZIE [facility] Comment: HIV-1 antigen and HIV-1/HIV-2 antibodies were not detected. There is no laboratory evidence of HIV infection. PLEASE NOTE: This information has been disclosed to you from records whose confidentiality may be protected by state law. ??If your state requires such protection, then the state law prohibits you from making any further disclosure of the information without the specific written consent of the person to whom it pertains, or as otherwise permitted by law. A general authorization for the release of medical or other information is NOT sufficient for this purpose. ?? For additional information please refer to http://education.[employer].[facility] [place]/faq/VQB032 (This link is being provided for informational/ educational purposes only.) The performance of this assay has not been clinically validated in patients less than 2 years old. Blood specimen (specimen) Blood specimen / Unknown 01/11/2024 1:27 PM EDT 01/11/2024 1:28 PM EDT Narrative [facility] - 01/12/2024 4:36 AM EDT FASTING:YES FASTING: YES [facility] COMMUNICATIONS MANAGER LAB BLOOD ORDERABLE S Performing Organization Address [facility]/ZIP Co de Phone Number [employer] [address] [place] [address] * (ABNORMAL) HEMOGLOBIN A1C WITH ESTIMATED AVERAGE GLUCOSE (01/11/2024 1:27 PM EDT) [facility] Hemoglobin A1C 8.0(H) <5.7 % of total Hgb [facility] Comment: For someone without known diabetes, a hemoglobin A1c value of 6.5% or greater indicates that they may have diabetes and this should be confirmed with a follow-up test. For someone with known diabetes, a value <7% indicates that their diabetes is well controlled and a value greater than or equal to 7% indicates suboptimal control. A1c targets should be individualized based on duration of diabetes, age, comorbid conditions, and other considerations. Currently, no consensus exists regarding use of hemoglobin A1c for diagnosis of diabetes for children. ?? Estimated Average Glucose (mg/dL) 183 mg/dL [facility] Estimated Average Glucose (mmol/L) 10.1 mmol/L [facility] Comment: ? This test was performed on the Ana Laura jordan c503 platform. Effective 08/28/23, a change in test platforms from the Hunter Senior Policy Analyst to the Ana Laura jordan c503 may have shifted HbA1c results compared to historical results. Based on laboratory validation testing conducted at [facility], the Ana Laura platform relative to the Hunter platform had an average increase in HbA1c value of < or = 0.3%. This difference is within accepted variability established by the National Glycohemoglobin Standardization Program. Note that not all individuals will have had a shift in their results and direct comparisons between historical and current results for testing conducted on different platforms is not recommended. Blood specimen (specimen) Blood specimen / Unknown 01/11/2024 1:27 PM EDT 01/11/2024 1:28 PM EDT Narrative [facility] - 01/12/2024 4:36 AM EDT FASTING:YES FASTING: YES [facility] COMMUNICATIONS MANAGER LAB BLOOD ORDERABLE S [employer] [address] [place] [phone] * HEPATITIS C VIRUS (HCV) ANTIBODY (01/11/2024 1:27 PM EDT) [facility] Hepatitis C Antibody NON-REACT LIZZIE NON-REACT LIZZIE [facility] Comment: HCV antibody was non-reactive. There is no laboratory evidence of HCV infection. In most cases, no further action is required. However, if recent HCV exposure is suspected, a test for HCV RNA (test code 95827) is suggested. For additional information please refer to http://education.Skim[employer]/faq/XKF32g3 (This link is being provided for informational/ educational purposes only.) 01/11/2024 1:27 PM EDT 01/11/2024 1:28 PM EDT Narrative [facility] - 01/12/2024 4:36 AM EDT FASTING:YES FASTING: YES [facility] LAB BLOOD ORDERABLE S [employer] [address] [place] [phone] * Comprehensive Metabolic Panel (01/11/2024 1:27 PM EDT) Glucose 95 65 - 99 mg/dL [facility] Comment: ? Fasting reference interval Blood Urea Nitrogen (BUN) 11 7 - 25 mg/dL [facility] Creatinine 0.90 0.60 - 1.24 mg/dL [facility] Creatinine w/ eGFR 122 > OR = 60 mL/min/1. 73m2 [facility] BUN/Creatinine Ratio SEE NOTE: (calc) [facility] Comment: ?? Not Reported: BUN and Creatinine are within ?? reference range. ? Sodium 139 135 - 146 mmol/L [facility] Potassium 5.1 3.5 - 5.3 mmol/L [facility] Chloride 103 98 - 110 mmol/L [facility] CO2 25 20 - 32 mmol/L [facility] Calcium 9.7 8.6 - 10.3 mg/dL [facility] Protein, Total 6.8 6.1 - 8.1 g/dL [facility] Albumin 4.4 3.6 - 5.1 g/dL [facility] Globulin 2.4 1.9 - 3.7 g/dL (calc) [facility] Albumin/Globuli n Ratio 1.8 1.0 - 2.5 (calc) [facility] Bilirubin, Total 0.4 0.2 - 1.2 mg/dL [facility] Alkaline Phosphatase 69 36 - 130 U/L [facility] Aspartate Aminotrans (AST) 15 10 - 40 U/L [facility] Alanine Aminotrans (ALT) 10 9 - 46 U/L [facility] Blood specimen (specimen) Blood specimen / Unknown 01/11/2024 1:27 PM EDT 01/11/2024 1:28 PM EDT Narrative [facility] - 01/12/2024 4:36 AM EDT FASTING:YES FASTING: YES Rebekah Lea COMMUNICATIONS MANAGER LAB BLOOD ORDERABLE S [employer] [address] [place] [phone] from Last 3 Months or Most Recently Relevant to Health Maintenance Advance Directives * Full Code (Latest Code Status on File) Date Activated Date Inactivated Comments 04/13/2022 2:14 PM 04/20/2022 2:14 PM * Full Code Date Activated Date Inactivated Comments 09/28/2021 12:15 PM 04/11/2022 2:25 PM Question Answer Comments Decision Thoroughly Discussed with: Patient * Full Code Date Activated Date Inactivated Comments 09/26/2021 10:57 AM 09/28/2021 11:56 AM * Full Code Date Activated Date Inactivated Comments 05/23/2021 4:35 AM 09/26/2021 2:34 AM * Full Code Date Activated Date Inactivated Comments 03/28/2021 11:39 AM 05/23/2021 2:51 AM Care Teams Tanker Driver Relationship Specialty Start Date End Date Larry Pringle MD [address] [facility] [address] [place] [phone] PCP - General Internal Medicine 07/24/20 Cami Bush, PhD 12[address] [place] [address] Clinical Psychologist Psychology 12/31/20 Holley Fuller MD [address] [place] [address] Physician Psychiatry, General 01/04/21 Reyes Stephen PsyD [address] [place] [address] Clinical Psychologist Psychology 01/05/21 Cassi Berkowitz, SHEREE [address] [place] [address] Registered Nurse 01/07/21 Lisa Arita LCSW [address] [place] [address] Supervisor Plastics Social Work 04/14/21 Jl Mcclain, COMMUNICATIONS MANAGER [address] [place] [address] Nurse Practitioner Psychiatry, General 04/16/21 Darnell Cruz MD [address] [place] [address] Psychiatry, General 04/20/21
--- OUTSIDE RECORDS SUMMARY | 2024-08-12 19:09 | XMS_ITS | Encounter Summary ---
Author Organization [facility] Address [address] [place] [address] Care Team Providers Care Brush Material Preparer Name Role Phone Larry Pringle MD Primary Care Provider [phone] Cami Bush PhD Unavailable [phone]- [phone] Holley Fuller MD Unavailable [phone] Reyes Stephen PsyD Unavailable [phone] Cassi Berkowitz RN Unavailable [phone] Lisa Arita SPARE HAND CARDING Unavailable [phone] Jl Mcclain GAS DISPENSER Unavailable [phone] Darnell Cruz MD Unavailable [phone] Encounter Details Date Type Department Care Team (Late st Contact Info) Description 03/31/2023 Scanned Document [facility] [place] Dr. Larry Pringle [address] [facility] [address] [place] [address] Larry Pringle MD [address] [facility] [address] [place] [address] Social History Tobacco Use Types Packs/Day Years Used Date Smoking Tobacco: Never Smokeless Tobacco: Never Alcohol Use Standard Drinks/Week Comments Yes 0 (1 standard drink = 0.6 oz pur e alcohol) Social AUDIT-C Answer Date Recorded Q1: How often do you have a drink containing alcohol? Never 04/13/2022 Q2: How many drinks containi ng alcohol do you have on a typical day when you are drinking? Patient does not drink Q3: How often do you have si x or more drinks on one occasion? Never 04/13/2022 Sex and Gender Information Value Date Recorded Sex Assigned at Male 09/29/2021 11:52 AM EDT Gender Identity Male 09/29/2021 11:52 AM EDT Sexual Orientation Heterosexual (straight) 09/29 11:52 AM EDT documented as of this encounter Plan of Treatment Upcoming Encounters Date Type Department Care Team (Late st Contact Info) Description 11/11/2024 2:00 PM EDT Office Visit [facility] [place] Dr. Larry Pringle [address] [phone] Larry Pringle MD [address] [place] [address] documented as of this encounter Visit Diagnoses Not on filedocumented in this encounter Care Teams Brush Material Preparer Relationship Specialty Start Date End Date Larry Pringle MD [address] [place] [phone] PCP - General Internal Medicine 07/24/20 Cami Bush, PhD [facility] [place] [phone] Clinical Psychologist Psychology 12/31/20 Holley Fuller MD [address] [place] [phone] Physician Psychiatry, General 01/04/21 Reyes Stephen PsyD [address] [place] [phone] Clinical Psychologist Psychology 01/05/21 Cassi Berkowitz, RN [address] [place] [address] Registered Nurse 01/07/21 Lisa Arita LCSW [address] [place] [address] Sales Rep Social Work 04/14/21 Jl Mcclain APRN [address] [place] [address] Nurse Practitioner Psychiatry, General 04/16/21 Darnell Cruz MD [address] [place] [address] Psychiatry, General 04/20/21 documented as of this encounter
--- OUTSIDE RECORDS SUMMARY | 2024-08-12 19:09 | XMS_ITS | Encounter Summary ---
Author Organization [facility] Address [address] [place] [address] Care Team Providers Care Php Programmer Name Role Phone Larry Pringle MD Primary Care Provider [phone] Cami Bush PhD Unavailable [phone]- 0000 Holley Fuller MD Unavailable [phone] Reyes Stephen PsyD Unavailable [phone] Cassi Berkowitz RN Unavailable [phone] Lisa Arita PLATFORM OPERATIONS DIRECTOR Unavailable [phone] Jl Mcclain SENIOR PROPERTY ACCOUNTANT Unavailable [phone] Darnell Cruz MD Unavailable [phone] Reason for Visit * Reason Comments Medication Refill Encounter Details Date Type Department Care Team (Late st Contact Info) Description 08/03/2024 Refill [facility] [place] Dr. Larry Pringle [address] [place] [address] Rebekah Lea SENIOR PROPERTY ACCOUNTANT [address] [place] [address] Gastroesophageal reflux disease without esophagitis Social History Tobacco Use Types Packs/Day Years [...] Description 11/11/2024 2:00 PM EDT Office Visit [facility] [place] Dr. Larry Pringle [address] [phone] Larry Pringle MD [address] [place] [phone] documented as of this encounter Visit Diagnoses Diagnosis Gastroesophageal reflux disease without esophagitis Esophageal reflux documented in this encounter Care Teams Php Programmer Relationship Specialty Start Date End Date Larry Pringle MD [address] [place] [phone] PCP - General Internal Medicine 07/24/20 Cami Bush, PhD [address] [address] Clinical Psychologist Psychology 12/31/20 Holley Fuller MD [address] [address] Physician Psychiatry, General 01/04/21 Reyes Stephen PsyD [address] [place] [address] Clinical Psychologist Psychology 01/05/21 Cassi Berkowitz, RN [address] [place] [address] Registered Nurse 01/07/21 Lisa Arita LCSW [address] [place] [address] Rn Progressive Care Unit Social Work 04/14/21 Jl Mcclain APRN [address] [place] [address] Nurse Practitioner Psychiatry, General 04/16/21 Darnell Cruz MD [address] [place] [address] Psychiatry, General 04/20/21 documented as of this encounter
--- OUTSIDE RECORDS SUMMARY | 2024-08-12 19:09 | XMS_ITS | Clinical Summary ---
Author Organization [address] [place] [address] [place] [phone] Phone Care Team Providers Care Career Services Representative Name Role Phone Larry Pringle MD Primary Care Provider [phone] Allergies No known active allergies Medications acetone, urine, test strip Use to test urine when blood sugars over 250 on 2 consecutive checks and when ill 07/04/19 21 Active blood-glucose meter (OneTouch Verio Flex meter) misc 1 Device by Does not apply route continuous. 09/23/19 23 Active blood-glucose sensor (DEXCOM G7 SENSOR MISC) 1 Unspecified by Does not apply route continuous. Change every 10 days 10/09/19 24 Active glucose blood (Blood Glucose Test) test strip Use to test BG 7 x per day 09/14/19 17 Active insulin pen,reusable,BT lispro (INPEN, FOR HUMALOG, BLUE SUBQ) Injection Device for Insulin (InPen 747-[id number] g-Fiasp) NELSON Patient si Device by Does not apply route 3 (three) times a day with meals. 04/16/20 24 Active lancets (OneTouch Delica Plus Lancet) 33 gauge Use to test blood sugar 4 times daily as instructed. 09/23/19 23 Active urine glucose-ketones test strip For testing urine when blood glucose >300 06/04/20 15 Active gabapentin (NEURONTIN) 300 mg capsule Take 2 capsules (600 mg total) by mouth 3 (three) times a day. 04/03/20 24 Active glucagon (Baqsimi) 3 mg/actuation nasal spray spray or apply 3 mg inside Nose as needed (for severe hypoglycemia). 04/21/20 Active insulin aspart, niacinamide, (Fiasp FlexTouch U-100 Insulin) 100 unit/mL (3 mL) injection pen INJECT 5-15 UNITS UNDER THE SKIN 3 (THREE) TIMES A DAY BEFORE MEALS. 03/26/20 Active insulin degludec (Tresiba FlexTouch U-100) 100 unit/mL (3 mL) injection pen Inject 35 Units under the skin daily. 04/16/20 Active omeprazole (PriLOSEC) [address] capsule TAKE 1 CAPSULE BY MOUTH EVERY DAY IN THE MORNING BEFORE BREAKFAST 02/03/20 Active pen needle, diabetic (Insupen Pen Needle) 32 gauge x 5/32 needle Use to inject insulin 4 times daily 01/15/20 Active blood-glucose sensor ([employer] G7 Sensor) deviceIndications: Type 1 diabetes mellitus with diabetic polyneuropathy (CMS/HCC) 1 UNSPECIFIED BY DOES NOT APPLY ROUTE CONTINUOUS. CHANGE EVERY 10 DAYS 9 each 3 06/20/20 Active blood sugar diagnostic ([employer] Verio test strips) test stripIndications:T ype 1 diabetes mellitus with diabetic polyneuropathy (CMS/HCC) Use to test sugars 3x daily. 100 each 3 06/20/20 Active Active Problems Problem Noted Date Diagnosed Date Mixed hyperlipidemia 12/08/2020 Type 1 diabetes mellitus with diabetic polyneuro guillaume 07/04/2020 DKA, type 1, not at goal 01/18/2020 DKA, type 2, not at goal 01/18/2020 Social History Tobacco Use Types Packs/Day Years Used Date Smoking Tobacco: Unknown Alcohol Use Standard Drinks/Week Comments Never 0 (1 standard drink = 0.6 oz pur e alcohol) Sex and Gender Information Value Date Recorded Sex Assigned at Not on file Legal Sex Male 4:18 PM EST Gender Identity Not on file Sexual Orientation Not on file Obstetrics History Last Filed Vital Signs Vital Sign Reading Time Taken Comments Blood Pressure 108/71 04/16/2024 11:25 AM EDT Sitting Left arm Pulse 76 04/16/2024 11:25 AM EDT Temperature - - Respiratory Rate - - Oxygen Saturation - - Inhaled Oxygen Concentration - - Weight 77.7 kg (171 lb 3.2 oz) 04/16/2024 11:25 AM EDT Height 182.9 cm (6') 10/06/2023 9:45 AM EDT Body Mass Index 23.22 10/06/2023 9:45 AM EDT Plan of Treatment Upcoming Encounters Date Type Department Care Team (Late st Contact Info) Description 10/01/2024 1:20 PM EDT Office Visit [facility] [place] [address] [place] [id number] Rosamaria Dasilva, Cory Rodriguez MD [address] [place] [address] Health Maintenance Due Date Last Done Comments Diabetes: Annual Foot Exam 2008 Diabetes: Annual Retina Eye Exam 2008 HPV Vaccines (1 - Male 3-dose series) 2013 DTaP,Tdap,and Td Vaccines (1 - Tdap) 2017 Hepatitis B Vaccines (1 of 3 - 19+ 3-dose series) 2017 Pneumococcal Vaccine: Pediatrics (0 to 5 Years) and At-Risk Patients (6 to 64 Years) (1 of 2 - PCV) 2017 Depression Screening 05/25/2022 Social Influencers of Health Screening 05/25/2022 COVID-19 Vaccine ( - season) 2024 Influenza Vaccine (#1) 2024 Diabetes: Blood Sugar Control Test (HGBA1C) 07/13/2024 01/11/2024, 01/11/2024, 01/18/2020 Diabetes: Annual Urine Albumin-Creatinine Ratio (uACR) 01/10/2025 01/11/2024 Diabetes: Annual GFR (Glomerular Filtration Rate) 01/10/2025 01/11/2024, 01/11/2024, 01/20/2020, Additional history exists Cholesterol Screening (Lipid Panel) 01/10/2029 01/11/2024, 01/11/2024 HIV Screening Completed 01/11/2024 Hepatitis C Screening Completed 01/11/2024 HIB Vaccines Aged Out No longer eligi ble based on patient's age to complete this topic Hepatitis A Vaccines Aged Out No long er eligible based on patient's age to complete this topic IPV Vaccines Aged Out No longer eligi ble based on patient's age to complete this topic MMR Vaccines Aged Out No longer eligi ble based on patient's age to complete this topic Meningococcal ACWY Vaccine Aged Out N o longer eligible based on patient's age to complete this topic Meningococcal B Vacine Aged Out No lo nger eligible based on patient's age to complete this topic RSV Immunization Patients Under 20 months Aged Out No longer eligible based on patient's age to complete this topic Varicella Vaccines Aged Out No longer eligible based on patient's age to complete this topic Procedures Procedure Name Priority Date/Time Associated Diagnosis Comments HEPATITIS C SCREENING Routine 01/11/2024 HIV SCREENING Routine 01/11/2024 URINE ALBUMIN CREATININE RATIO Routine 01/11/2024 ANNUAL BMP BLOOD TEST Routine 01/11/2024 HEMOGLOBIN A1C Routine 01/11/2024 LIPID PANEL Routine 01/11/2024 from Last 3 Months or Most Recently Relevant to Health Maintenance Results * Urine Albumin Creatinine Ratio (01/11/2024) [facility] Urine Albumin Creatinine Ratio abstracted [facility] Provider HEALTH MAINTENANCE Final Result * Annual BMP Blood Test (01/11/2024) [facility] Annual BMP Blood Test abstracted [facility] Provider HEALTH MAINTENANCE Final Result * HIV Screening (01/11/2024) [facility] HIV Screening abstracted [facility] Provider HEALTH MAINTENANCE Final Result * Hepatitis C Screening (01/11/2024) [facility] Hepatitis C Screening abstracted [facility] Provider HEALTH MAINTENANCE Final Result * (ABNORMAL) Hemoglobin A1c (01/11/2024) [facility] Hemoglobin A1C 8.0(A) <=5.7 % Blood Venous blood specimen / Unknown Historical Provider LAB BLOOD ORDERABLES Xenia l Result * (ABNORMAL) Lipid panel (01/11/2024) LDL/HDL Ratio 4 <=5 Triglycerides 114 <=150 mg/dL Cholesterol 176 <=200 mg/dL HDL 46 >=40 mg/dL LDL Cholesterol 108(A) <=100 mg/dL Blood Venous blood specimen / Unknown Historical Provider LAB BLOOD ORDERABLES Xenia l Result from Last 3 Months or Most Recently Relevant to Health Maintenance Insurance [place]ICA[place] - [place] Care Teams Career Services Representative Relationship Specialty Start Date End Date Larry Pringle MD PCP - General Internal Medicine 08/07/20
[2024-08-12 19:13] VITALS: BP 133/66; PULSE 59; RESP 16; TEMP 36.8; O2SAT 100
--- NOTE | 2024-08-12 19:23 | MHC.EDTECH ---
This tech took over care of pt at 1900,rounded and introduced self to pt,sars/flu/rsv and strep obtained and sent to lab,patient is very nauseous at this time RN at bedside,call stevens in reach
[2024-08-12 19:31] LABS: IDNOW Serial# 08D9AD1C; Strep A Nucleic Acid Negative (Negative)
[2024-08-12 20:14] LABS: Influenza A PCR POSITIVE (Negative); Influenza B PCR NEGATIVE (Negative); Resp Syncy Virus RNA Qual PCR NEGATIVE (Negative); SARS COV2 PCR INHOUSE NEGATIVE (Negative)
--- NOTE | 2024-08-12 20:50 | MHC.EDTECH ---
POC taken and is 202,Hope RN made aware
[2024-08-12 20:52] LABS: Glucose, Whole Blood 202 mg/dL (60-115)
[2024-08-12 21:04] VITALS: BP 128/69; PULSE 50; RESP 16; TEMP 37.7; O2SAT 99
[2024-08-12] MEDS: Ketorolac Tromethamine 15 MG/ML VIAL IVPUSH (21:06)
[2024-08-12 21:54] VITALS: BP 128/69; PULSE 50; RESP 16; TEMP 37.7; O2SAT 99
[2024-08-12] MEDS: Oseltamivir Phosphate 75 MG CAPSULE PO (22:01)
[2024-08-12] MEDS: Enoxaparin Sodium 40 MG/0.4 ML SYRINGE SUBCUT (22:01)
--- NOTE | 2024-08-12 22:06 | P.HPHOSP_ITS ---
History of Present Illness Date of Service: 08/12/24 Attending physician on admission: Chiquis Sosa Chief Complaint: abd pain, nausea, vomiting Patient is a 24-year-old male with a past medical history significant for insulin-dependent diabetes, history DKA as a child, diabetic neuropathy, who presented to the ED due to generalized abdominal pain, intractable vomiting, watery diarrhea fever, cough x2 days. He reports he has been unable to tolerate anything by mouth since yesterday. He reports this feels similar to his history of DKA. Initially reported watery diarrhea to the ED provider but denies this with me. He also reports that he uses marijuana daily. Review of Systems 2 Constitutional: Constitutional: Denies chills, Denies fever(s) and Denies headache(s) Eyes: Eyes: Denies change in vision and Denies photophobia ENT: Denies headache(s), Reports nasal congestion and Reports nasal discharge Cardiovascular: Cardiovascular: Denies chest pain, Denies rapid heart rate, Denies lightheadedness, Denies palpitations, Denies dyspnea and Denies dyspnea on exertion Respiratory: Respiratory: Reports chest congestion, Reports cough, Denies dyspnea, Denies dyspnea on exertion and Denies wheezing Gastrointestinal: Gastrointestinal: Reports abdominal pain, Denies melena, Denies hematochezia, Denies coffee ground emesis, Reports diarrhea, Reports nausea and Reports vomiting Genitourinary: Genitourinary: Denies hematuria, Denies difficulty urinating, Denies urinary frequency and Denies urinary urgency Musculoskeletal: Musculoskeletal: Denies myalgias Integumentary/Breasts: Skin/Breast: Denies rash Neurologic: Denies confusion and Denies headache(s) Psychiatric: Psychiatric: Denies confusion Endocrine: Endocrine: Denies palpitations Hematologic/Lymphatic: Hematologic/Lymphatic: Denies easy bleeding and Denies easy bruising Allergic/Immunologic: Allergic/Immunologic: Denies wheezing [facility] Medical History (Updated 08/12/24 @ 22:10 by Olga Niño PA-C) Insulin dependent type 1 diabetes mellitus Diabetic neuropathy Functional capacity: independent ambulation Social History Patient Tobacco Use Status: Never used Tobacco Smoked in Last 30 Days: No Use of substances other than those prescribed or required for medical reasons: Yes Substance Use Type: Marijuana Substance Use Frequency: Occasionally Advance Directives: No Advance Directives Information Provided: No Do you have a plan to hurt others: No Plan Nutrition Risks: No Nutritional Risk Narrative: vapes daily but none the past few days, no etoh, uses marijuana daily Meds Allergies Allergy/AdvReac Type Severity Reaction Status Date / Time No Known Allergies Allergy Verified 08/12/24 18:02 Active Medications: Current Medications Acetaminophen (Acetaminophen 325 Mg Tablet) 650 mg PO Q6H PRN PRN Reason: Pain, Mild 1-3,fever,headache Calcium Carbonate (Calcium Carbonate 750 Mg Tab.Chew) 750 mg PO Q4H PRN PRN Reason: Heartburn Dextrose (Dextrose 50 % 25 Gm/50 Ml Syringe) 25 gm IVPUSH Q15M PRN; Protocol PRN Reason: per Hypoglycemia Standing Ord. Enoxaparin Sodium (Enoxaparin Sodium 40 Mg/0.4 Ml Syringe) 40 mg SUBCUT Q24H [facility] Last Admin: 08/12/24 22:01 Dose: 40 mg Glucose (Glucose Gel 15 Gm Gel..Gram.) 15 gm PO Q15M PRN; Protocol PRN Reason: per Hypoglycemia Standing Ord. Sodium Chloride (Ns) 1,000 mls @ 999 mls/hr IV .Q1H1M ONE Stop: 08/12/24 22:35 Last Admin: 08/12/24 21:57 Dose: 999 mls/hr Lactated Ringer's (Lr) 1,000 mls @ 100 mls/hr IVCONT .Q10H [facility] Stop: 08/13/24 07:44 Insulin Glargine (Insulin Glargine,Hum.Rec.Anlog 100 Unit/Ml 10 Ml Vial) 17 unit SUBCUT BEDTIME LEXA Insulin Human Lispro (Insulin Lispro 100 Unit/Ml 3 Ml Vial) 0 unit SUBCUT QIDACHS [facility]; Protocol Magnesium Hydroxide (Milk Of Magnesia 30 Ml Oral.Susp) 30 ml PO DAILY PRN PRN Reason: Constipation Melatonin (Melatonin 3 Mg Tablet) 6 mg PO BEDTIME PRN PRN Reason: Insomnia Ondansetron HCl (Ondansetron Hcl 4 Mg/2 Ml Vial) 4 mg IVPUSH Q8H PRN PRN Reason: Nausea and Vomiting Oseltamivir Phosphate (Oseltamivir Phosphate 75 Mg Capsule) 75 mg PO Q12H [facility] Stop: 08/17/24 10:01 Last Admin: 08/12/24 22:01 Dose: 75 mg Sodium Chloride (0.9 % Sodium Chloride Flush 3 Ml Syringe) 3 ml IVFLUSH QSHIFT LEXA Physical Exam 2 Vital Signs and Narrative: Vital Signs: Last Vital Signs Temp 99.9 F 08/12/24 21:54 Pulse 50 08/12/24 21:54 Resp 16 08/12/24 21:54 BP 128/69 08/12/24 21:54 Pulse Ox 99 08/12/24 21:54 O2 Del Method Room Air 08/12/24 21:54 BMI result Body Mass Index 23.1 General: AOx3, appears uncomfortable, lying on side, does not wish to participate in giving history, most of history given by significant other Resp: CTA bilaterally CVS: S1, S2, RRR GI: +BS, generalized tenderness, no distention Skin: Warm, dry Neuro: Cranial nerves II-XII grossly intact bilaterally. Motor grossly intact bilaterally Extremities: No lower extremity edema Psych: Appropriate affect Const: General: No confusion Orientation/consciousness: No confusion Eyes: Direct Ophthalmoscopy: No photophobia Neuro: General: No confusion Results Labs 08/12/24 18:28 08/12/24 18:28 Labs: Laboratory Results - last 24 hr 08/12/24 08/12/24 08/12/24 18:06 18:28 18:31 MCV 83.9 MCH 28.8 MCHC 34.3 RDW 12.7 Plt Count 412 H MPV 10.6 Immature Gran % (Auto) 0.3 Neut % (Auto) 64.9 Lymph % (Auto) 16.2 L [place] % (Auto) 17.2 H Eos % (Auto) 0.0 Baso % (Auto) 1.4 Lymph # (Auto) 1.1 L [place] # (Auto) 1.2 Eos # (Auto) 0.0 Baso # (Auto) 0.1 Abs Immat Gran (auto) 0.02 Absolute Neuts (auto) 4.6 Absolute Nucleated RBC 0.000 Nucleated RBC % (auto) 0.0 VBG pH 7.46 H VBG pCO2 28 VBG pO2 21 VBG HCO3 20 L VBG O2 Saturation < 30.0 VBG Base Excess -1.3 Anion Gap 19 Estim Creat Clear Calc 128.5 Estimated GFR > 60 POC Glucose 138 H Random Glucose 172 H Calcium 9.8 Magnesium 1.8 Total Bilirubin 0.5 Direct Bilirubin 0.2 AST 27 ALT 22 Alkaline Phosphatase 73 Total Protein 8.2 H Albumin 4.7 Beta-Hydroxybutyrate 2.96 H Influenza Type A (PCR) Influenza Type B (PCR) RSV RNA Qual (PCR) SARS-CoV-2 RNA (RT-PCR) S. pyogenes GrpA [place] 08/12/24 08/12/24 19:19 20:49 MCV MCH MCHC RDW Plt Count MPV Immature Gran % (Auto) Neut % (Auto) Lymph % (Auto) [place] % (Auto) Eos % (Auto) Baso % (Auto) Lymph # (Auto) [place] # (Auto) Eos # (Auto) Baso # (Auto) Abs Immat Gran (auto) Absolute Neuts (auto) Absolute Nucleated RBC Nucleated RBC % (auto) VBG pH VBG pCO2 VBG pO2 VBG HCO3 VBG O2 Saturation VBG Base Excess Anion Gap Estim Creat Clear Calc Estimated GFR POC Glucose 202 H Random Glucose Calcium Magnesium Total Bilirubin Direct Bilirubin AST ALT Alkaline Phosphatase Total Protein Albumin Beta-Hydroxybutyrate Influenza Type A (PCR) POSITIVE A Influenza Type B (PCR) NEGATIVE RSV RNA Qual (PCR) NEGATIVE SARS-CoV-2 RNA (RT-PCR) NEGATIVE S. pyogenes GrpA [place] Negative Assessment and Plan (1) Intractable vomiting: Status: Acute (2) Influenza A: Status: Acute (3) Colitis: Status: Acute (4) Hyperglycemia: Status: Acute (5) Starvation ketoacidosis: Status: Acute Plan Patient is a 24-year-old male with a past medical history significant for insulin-dependent diabetes, history DKA as a child, diabetic neuropathy, who presented to the ED due to generalized abdominal pain, intractable vomiting, watery diarrhea fever, cough x2 days. intractable vomiting, colitis, flu A - WBC 7.1, vital stable, no sepsis - A/P CT with ?rectosigmoid colitis - flu A positive - given 3L IVF in ED, give additional liter of LR now - start tamiflu - zofran PRN for nausea/vomiting - c diff and GI panel to assess for infectious etiology of colitis - Clear liquid diet, advance as tolerated - monitor CBC and BMP hyperglycemia and starvation ketosis - beta hydroxybutyrate elevated, no anion gap, likely starvation rather than DKA - monitor POC IDDM - 1/2 dose lantus tonight, 17U, advance to regular dose when appropriate - sliding scale insulin full code VTE prophy: lovenox Patient with intractable vomiting, colitis, flu a, complicated by hyperglycemia and starvation ketosis, requiring admission for observation including IV fluids and monitoring. Quality Stroke Does the patient have a stroke diagnosis?: No VTE Prior VTE?: No VTE Risk Level:: Medical - moderate - high VTE Device Contraindication: Treatment Not Indicated VTE Drug Contraindication: N/A - Med Ordered
--- NOTE | 2024-08-12 22:30 | PHA.MEDREC ---
Addendum entered by Meghana Muniz [facility] 08/12/24 22:45: Reviewed by [facility] Addendum entered by Susu Saunders 08/12/24 22:40: [facility] reports Fiasp [facility] Mar 2024 Original Note: Pharmacy Consult ? Medication Reconciliation Pharmacy has completed the medication reconciliation. Spoke with family member at bedside to verify meds. She reports he wears a Dexcom sensor and currently has one on. Called [facility], they were unable to confirm/find patient profile. Family reports they use [facility] [address] Called [facility], had meds on file for patient: Tresiba 100u/mL 35 units SQ daily - family reports same units, he administered last night. [facility] reports [facility] knot picker cloth in May 2024 x30 DS Fiasp 5-15 units TID - family member says he uses as needed if his dexcom reports glucose >250 Omeprazole 20 mg daily - family says patient uses as needed for heartburn Gabapentin 600 mg tid - [facility] reports last knot picker cloth Apr 2024 x90 DS. Family says he uses this as needed. Family also reports tums prn, ibuprofen prn, and excedrin prn.
[2024-08-12] MEDS: Calcium Carbonate 750 MG TAB.CHEW PO (22:46)
[2024-08-12] MEDS: Insulin Glargine,Hum.rec.anlog 100 UNIT/ML 10 ML VIAL 17 UNIT SUBCUT (22:47)
[2024-08-12] MEDS: Lactated Ringers 1,000 ML 100 ML IVCONT (22:48)
[2024-08-13] VITALS (19 sets, daily range): BP systolic 106–150; BP diastolic 50–70; PULSE 47–80; RESP 12–26; TEMP 36.1–37.1; O2SAT 96–100
[2024-08-13] MEDS: ondansetron HCL 4 MG/2 ML VIAL IVPUSH ×4 (01:19→20:26)
[2024-08-13] MEDS: Insulin Regular, Human 100 UNIT/ML 10 ML VIAL IVPUSH (01:51)
[2024-08-13 01:58] LABS: Glucose, Whole Blood 307 mg/dL (60-115)
--- NOTE | 2024-08-13 01:59 | MHC.EDTECH ---
Patient vomited 400MLS,RN aware ,vitals and belongings list completed
[2024-08-13 02:57] LABS: Glucose, Whole Blood 248 mg/dL (60-115)
[2024-08-13] MEDS: Melatonin 3 MG TABLET 6 MG PO (02:58)
[2024-08-13] MEDS: Metoclopramide HCl 10 MG/2 ML VIAL IVPUSH (04:10)
[2024-08-13] MEDS: Calcium Carbonate 750 MG TAB.CHEW PO (04:36)
[2024-08-13 05:14] LABS: MANUAL DIFF FLAG NO
[2024-08-13 05:15] LABS: Basophils Percent Auto 0.4 % (0-2); Hematocrit 41.4 % (42.0-52.0); Hemoglobin 13.9 g/dl (14.0-18.0); Imm Gran Abs Auto 0.02 X10*3/uL (0.00-0.03); Imm Gran Pct Auto 0.2 % (0.0-0.4); Lymphocytes Absolute Auto 0.8 X10*3/uL (1.2-4.9); Lymphocytes Percent Auto 9.1 % (20-40); Mean Corpuscular HGB Conc 33.6 g/dl (31.0-36.0); Mean Corpuscular Hemoglobin 28.9 pg (27.0-33.0); Mean Corpuscular Volume 86.1 fL (80.0-98.0); Mean Platelet Volume 10.8 fL (9.4-12.4); Monocytes Absolute Auto 0.7 X10*3/uL (0.1-1.2); Monocytes Percent Auto 8.6 % (2-11); Neutrophils Absolute Auto 6.9 x10*3/uL (2.0-8.3); Neutrophils Percent Auto 81.7 % (45-73); Platelet Count 350 X10*3/uL (160-400); Red Blood Count 4.81 X10*6/uL (4.60-5.80); White Blood Count 8.4 X10*3/uL (4.8-10.8)
[2024-08-13 05:38] LABS: Anion Gap 24 (12-20); Blood Urea Nitrogen 13 mg/dL (9-16); Calcium 8.7 mg/dL (8.4-10.2); Carbon Dioxide 10 mmol/L (22-29); Chloride 108 mmol/L (96-108); Creatinine Clr Calc Pharmacy 131.2; Estimated Glomerular Filt Rate > 60; Glucose Random 310 mg/dL (60-115); Potassium 4.6 mmol/L (3.3-5.1); Sodium 137 mmol/L (135-145)
[2024-08-13] MEDS: Omeprazole 20 MG CAPSULE.DR PO (05:56)
[2024-08-13 05:57] LABS: Venous Blood Gas Refer to POC result
[2024-08-13] MEDS: Lactated Ringers 1,000 ML 999 ML IV (06:02)
[2024-08-13 06:13] LABS: Beta-Hydroxybutyrate 5.39 mmol/L (0.02-0.27)
[2024-08-13 06:14] LABS: VBG Base Excess -12.9 mmol/L; VBG HCO3 12 mmol/L (22-26); VBG pCO2 25 mmHg; VBG pH 7.27 (7.32-7.43); VBG pO2 64 mmHg
--- NOTE | 2024-08-13 06:28 | PM.EVENT ---
Event Note Date of Service: 08/13/24 Event Note: Was notified by the nurse that patient's bicarb is 10. Obtained beta hydroxybutyrate which is elevated and obtained VBG > pH 7.27. Also noted anion gap which was not present on admission. His pH was okay at the time of admission. Patient received 4 L crystalloids, Lantus and regular IV insulin at the time of admission for ketosis. Concern that patient is now going into DKA in the setting of intractable vomiting and will need IV insulin. Spoke to Renetta Ma and will transfer the patient to ICU. Time Spent With Patient Time: Total time managing care of this patient today ____ minutes.
[2024-08-13 06:40] LABS: Lactic Acid 1.8 mmol/L (0.5-2.0)
[2024-08-13 07:37] LABS: Glucose, Whole Blood 287 mg/dL (60-115)
[2024-08-13] MEDS: Insulin Regular/NS 100 UNIT/100 ML PLAST..BAG 7 UNIT IVCONT (07:51)
[2024-08-13] MEDS: Insulin Lispro 100 UNIT/ML 3 ML VIAL SUBCUT (07:55)
[2024-08-13 08:47] LABS: Glucose, Whole Blood 266 mg/dL (60-115)
--- NOTE | 2024-08-13 09:05 | P.PNCC_ITS ---
Subjective Subjective Date of Service: 08/13/24 Critical Care Time (minutes): 0 Physical Exam 2 Vital Signs: Vital Signs: Last Vital Signs Temp 98.4 F 08/13/24 08:15 Pulse 59 08/13/24 08:15 Resp 26 H 08/13/24 08:15 BP 117/53 L 08/13/24 08:15 Pulse Ox 98 08/13/24 08:15 O2 Del Method Room Air 08/13/24 08:15 BMI result Body Mass Index 23.1 Const: General: cooperative, healthy appearing, comfortable, no acute distress, well developed, alert, awake and Physically active O rientation/consciousness: patient oriented x3 HEENT: Head: Yes normal to inspection, Yes normocephalic and Yes atraumatic Eyes: General: appearance normal, both eyes and all related structures Neck: Neck: Yes normal visual inspection, Yes full ROM, Yes no meningeal signs, Yes trachea midline and Yes supple Chest: Chest palpation & inspection: normal inspection of the chest Resp: Other: no appreciable rales, rhonchi, wheezing Effort & Inspection: normal respiratory effort Cardio: Rate: regular rate Rhythm: regular rhythm GI: Other: some appreciable tenderness w/ palpation; no appreciable guarding, rebound Inspection: Yes normal to inspection, No Abdominal wall edema and No distended Palpation (GI): Soft to palpation, not firm, nontender, no guarding and not rigid Skin: General skin exam: no rashes or lesions noted Neuro: General: patient oriented x3, tone normal, moves all extremities, no meningeal signs and no focal motor deficits Extrem: General: Yes normal to inspection, Yes full ROM and Yes no clubbing, cyanosis or edema Psych: Appearance: grossly normal Objective Data Labs 08/13/24 05:09 08/13/24 05:09 Labs: Laboratory Results - last 24 hr 08/12/24 08/12/24 08/12/24 18:06 18:28 18:31 WBC 7.1 RBC 5.14 Hgb 14.8 Hct 43.1 MCV 83.9 MCH 28.8 MCHC 34.3 RDW 12.7 Plt Count 412 H MPV 10.6 Immature Gran % (Auto) 0.3 Neut % (Auto) 64.9 Lymph % (Auto) 16.2 L Charlton % (Auto) 17.2 H Eos % (Auto) 0.0 Baso % (Auto) 1.4 Lymph # (Auto) 1.1 L Charlton # (Auto) 1.2 Eos # (Auto) 0.0 Baso # (Auto) 0.1 Abs Immat Gran (auto) 0.02 Absolute Neuts (auto) 4.6 Absolute Nucleated RBC 0.000 Nucleated RBC % (auto) 0.0 VBG pH 7.46 H VBG pCO2 28 VBG pO2 21 VBG HCO3 20 L VBG O2 Saturation < 30.0 VBG Base Excess -1.3 Sodium 138 Potassium 4.4 Chloride 104 Carbon Dioxide 19 L Anion Gap 19 BUN 11 Creatinine 0.95 Estim Creat Clear Calc 128.5 Estimated GFR > 60 POC Glucose 138 H Random Glucose 172 H Lactic Acid Calcium 9.8 Magnesium 1.8 Total Bilirubin 0.5 Direct Bilirubin 0.2 AST 27 ALT 22 Alkaline Phosphatase 73 Troponin I High Sens < 2.7 Total Protein 8.2 H Albumin 4.7 Beta-Hydroxybutyrate 2.96 H Influenza Type A (PCR) Influenza Type B (PCR) RSV RNA Qual (PCR) SARS-CoV-2 RNA (RT-PCR) S. pyogenes GrpA [place] 08/12/24 08/12/24 08/13/24 19:19 20:49 01:50 WBC RBC Hgb Hct MCV MCH MCHC RDW Plt Count MPV Immature Gran % (Auto) Neut % (Auto) Lymph % (Auto) Charlton % (Auto) Eos % (Auto) Baso % (Auto) Lymph # (Auto) Charlton # (Auto) Eos # (Auto) Baso # (Auto) Abs Immat Gran (auto) Absolute Neuts (auto) Absolute Nucleated RBC Nucleated RBC % (auto) VBG pH VBG pCO2 VBG pO2 VBG HCO3 VBG O2 Saturation VBG Base Excess Sodium Potassium Chloride Carbon Dioxide Anion Gap BUN Creatinine Estim Creat Clear Calc Estimated GFR POC Glucose 202 H 307 H Random Glucose Lactic Acid Calcium Magnesium Total Bilirubin Direct Bilirubin AST ALT Alkaline Phosphatase Troponin I High Sens Total Protein Albumin Beta-Hydroxybutyrate Influenza Type A (PCR) POSITIVE A Influenza Type B (PCR) NEGATIVE RSV RNA Qual (PCR) NEGATIVE SARS-CoV-2 RNA (RT-PCR) NEGATIVE S. pyogenes GrpA [place] Negative 08/13/24 08/13/24 08/13/24 02:52 05:09 05:54 WBC 8.4 RBC 4.81 Hgb 13.9 L Hct 41.4 L MCV 86.1 MCH 28.9 MCHC 33.6 RDW 13.0 Plt Count 350 MPV 10.8 Immature Gran % (Auto) 0.2 Neut % (Auto) 81.7 H Lymph % (Auto) 9.1 L Charlton % (Auto) 8.6 Eos % (Auto) 0.0 Baso % (Auto) 0.4 Lymph # (Auto) 0.8 L Charlton # (Auto) 0.7 Eos # (Auto) 0.0 Baso # (Auto) 0.0 Abs Immat Gran (auto) 0.02 Absolute Neuts (auto) 6.9 Absolute Nucleated RBC 0.000 Nucleated RBC % (auto) 0.0 VBG pH 7.27 L VBG pCO2 25 VBG pO2 64 VBG HCO3 12 L VBG O2 Saturation 90.0 VBG Base Excess -12.9 Sodium 137 Potassium 4.6 Chloride 108 Carbon Dioxide 10 L* D Anion Gap 24 H BUN 13 Creatinine 0.93 Estim Creat Clear Calc 131.2 Estimated GFR > 60 POC Glucose 248 H Random Glucose 310 H Lactic Acid Calcium 8.7 D Magnesium Total Bilirubin Direct Bilirubin AST ALT Alkaline Phosphatase Troponin I High Sens Total Protein Albumin Beta-Hydroxybutyrate 5.39 H Influenza Type A (PCR) Influenza Type B (PCR) RSV RNA Qual (PCR) SARS-CoV-2 RNA (RT-PCR) S. pyogenes GrpA [place] 08/13/24 08/13/24 08/13/24 06:17 07:30 08:43 WBC RBC Hgb Hct MCV MCH MCHC RDW Plt Count MPV Immature Gran % (Auto) Neut % (Auto) Lymph % (Auto) Charlton % (Auto) Eos % (Auto) Baso % (Auto) Lymph # (Auto) Charlton # (Auto) Eos # (Auto) Baso # (Auto) Abs Immat Gran (auto) Absolute Neuts (auto) Absolute Nucleated RBC Nucleated RBC % (auto) VBG pH VBG pCO2 VBG pO2 VBG HCO3 VBG O2 Saturation VBG Base Excess Sodium Potassium Chloride Carbon Dioxide Anion Gap BUN Creatinine Estim Creat Clear Calc Estimated GFR POC Glucose 287 H 266 H Random Glucose Lactic Acid 1.8 Calcium Magnesium Total Bilirubin Direct Bilirubin AST ALT Alkaline Phosphatase Troponin I High Sens Total Protein Albumin Beta-Hydroxybutyrate Influenza Type A (PCR) Influenza Type B (PCR) RSV RNA Qual (PCR) SARS-CoV-2 RNA (RT-PCR) S. pyogenes GrpA [place] Progress Note: A&P Assessment and plan (1) Influenza A: Status: Acute (2) Colitis: Status: Acute (3) Diabetic ketoacidosis: Status: Acute Plan Patient is a 24 Y M w/ type I diabetes mellitus, c/b prior DKA, presenting initially to emergency department on 08/12 w/ nausea/vomiting/diarrhea, found to have influenza as well as CT A/P demonstrating colitis, initially admitted to medicine, though developed DKA N: no acute issues CV: no acute issues; appreciable sinus bradycardia; to monitor QTc interval in setting of anti-nausea medications, antibiotics R: no acute issues GI: n/v/d d/t influenza, colitis; NPO while on DKA protocol; advance diet when appropriate : no acute issues H: no acute issues; chemical DVT prophylaxis w/ enoxaparin SQ ID: influenza on oseltamivir; colitis on ciprofloxacin/metronidazole E: type I diabetes melltius c/b DKA, on DKA protocol P: no acute issues Quality Stroke Does the patient have a stroke diagnosis?: No VTE Prior VTE?: No VTE Risk Level:: Medical - moderate - high VTE Device Contraindication: Treatment Not Indicated VTE Drug Contraindication: N/A - Med Ordered
[2024-08-13] MEDS: Dextrose 5 % and Lactated Ring 1,000 ML 50 ML IVCONT (09:12)
[2024-08-13 09:54] LABS: Glucose, Whole Blood 214 mg/dL (60-115)
[2024-08-13] MEDS: Sodium Bicarbonate 8.4% 50 MEQ/50 ML SYRINGE IVPUSH (10:06)
[2024-08-13] MEDS: Ciprofloxacin Lactate/D5W 400 MG/200 ML PIGGYBACK 200 MG IV ×2 (10:20→22:34)
[2024-08-13] MEDS: Oseltamivir Phosphate 75 MG CAPSULE PO ×2 (10:27→22:34)
[2024-08-13] MEDS: 0.9 % Sodium Chloride Flush 3 ML SYRINGE IVFLUSH ×3 (10:28→22:34)
[2024-08-13 10:52] LABS: Glucose, Whole Blood 181 mg/dL (60-115)
[2024-08-13] MEDS: metroNIDAZOLE/NS 500 MG/100 ML PIGGYBACK 100 MG IV ×2 (11:16→23:38)
[2024-08-13] MEDS: LORazepam 2 MG/ML VIAL 0.5 MG IVPUSH (11:43)
[2024-08-13 12:06] LABS: Glucose, Whole Blood 141 mg/dL (60-115)
[2024-08-13 12:31] LABS: Anion Gap 15 (12-20); Blood Urea Nitrogen 14 mg/dL (9-16); Calcium 8.8 mg/dL (8.4-10.2); Carbon Dioxide 19 mmol/L (22-29); Chloride 110 mmol/L (96-108); Creatinine Clr Calc Pharmacy 132.7; Estimated Glomerular Filt Rate > 60; Glucose Random 177 mg/dL (60-115); Magnesium 1.8 mg/dL (1.6-2.6); Phosphorus 2.5 mg/dL (2.7-4.5); Potassium 3.9 mmol/L (3.3-5.1); Sodium 140 mmol/L (135-145)
[2024-08-13 13:10] LABS: Glucose, Whole Blood 116 mg/dL (60-115)
--- NOTE | 2024-08-13 13:32 | MHC.CM.PN ---
Pt receiving care in ICU for ? DKA - not on continuous insulin: pt states he recently moved to [place] from [place] and has not established himself with a PCP or payor. He states he had [place] Medicaid and should be eligible for [facility] Has had DM since childhood. Resides w/significant other, working- [place] [facility] [place] w[place]or: has information on [facility] primary providers. States he will need scripts for DM supplies at d/c. S.O. to transport pt to home. HCP declined. CM to follow
[2024-08-13 13:59] LABS: Glucose, Whole Blood 89 mg/dL (60-115)
[2024-08-13 15:00] LABS: Glucose, Whole Blood 94 mg/dL (60-115)
--- NOTE | 2024-08-13 15:00 | PC.NURSE ---
Late entry, shift eval, 09/10/24, 8:30 to 3pm: Patient admitted to ICU, room 260, at approx 0830. Patient came in for N/V - 2x episodes of vomiting brown liquid emesis. Patient + flu - precautions in place. Significant other at bedside. Patient alert and oriented, cooperative with care. Patient medicated with PRN zofran with minimal effect. Dr Jackson aware and ordered one time dose of ativan, which helped improve symptoms for longer period of time. Patient reports daily marijuana use - provider aware and reports concern of hyperemesis related to marijuana use. Insulin drip running as ordered and titrated per protocol and provider discretion - see MAR. Patient not tolerating any PO intake - order to continue insulin drip pending labs results from scheduled BMP lab draws. Start D5LR while blood sugar in 200's at 50mL/hr. Blood sugar dropping to low 100's, increase drip rate to 100 mL/hr - see MAR. Lab results communicated with provider. HR down to 40 when at rest, provider aware and ok with low parameter change of monitor to 40. Asymptomatic to bradycardia, HR otherwise running up to 100 depending activity. Patient reports loss of insurance since recently moving from [place] to [place] - Case mgmt, :Yvrose made aware and assisted with insurance signup with [employer]. Patient reports using Dexcom insulin pump at home. Pump not in use or connected at this time. Patient reports being compliant with checking blood sugar at home.
--- OUTSIDE RECORDS SUMMARY | 2024-08-13 15:25 | XMS_ITS | Clinical Summary ---
Author Organization [address] [place] [address] [place] [phone] Phone Care Team Providers Care Cotton Dispatcher Name Role Phone Larry Pringle MD Primary Care Provider [phone] Allergies No known active allergies Medications acetone, [...] BLUE SUBQ) Injection Device for Insulin (InPen 594-Mrzz-Ggapjw g-Fiasp) NELSON Patient si Device by Does [...] 4 times daily 01/15/20 Active blood-glucose sensor (Excelsoft G7 Sensor) deviceIndications: Type 1 diabetes mellitus with diabetic polyneuropathy (CMS/HCC) 1 UNSPECIFIED BY DOES NOT APPLY ROUTE CONTINUOUS. CHANGE EVERY 10 DAYS 9 each 3 06/20/20 Active blood sugar diagnostic ([employer] Verio test strips) test stripIndications:T ype 1 [...] 1:20 PM EDT Office Visit [facility] [address] [place] [id number] Rosamaria Dasilva, Cory Rodriguez MD [address] [place] [address] Health Maintenance Due Date Last Done Comments [...] Results * Urine Albumin Creatinine Ratio (01/11/2024) [facility] Urine Albumin Creatinine Ratio abstracted [facility] Provider HEALTH MAINTENANCE Final Result * Annual BMP Blood Test (01/11/2024) Pathologist [facility] Annual BMP Blood Test abstracted [facility] Provider HEALTH MAINTENANCE Final Result * HIV Screening (01/11/2024) [facility] HIV Screening abstracted [facility] Provider HEALTH MAINTENANCE Final Result * Hepatitis C Screening (01/11/2024) [facility] Hepatitis C Screening abstracted [facility] Provider HEALTH MAINTENANCE Final Result * (ABNORMAL) Hemoglobin A1c (01/11/2024) [facility] Hemoglobin A1C 8.0(A) <=5.7 % Blood [...] Relevant to Health Maintenance Insurance MEDICAID - [place] Care Teams Cotton Dispatcher Relationship Specialty Start Date End Date Larry Pringle MD PCP - General Internal Medicine 08/07/20
--- OUTSIDE RECORDS SUMMARY | 2024-08-13 15:26 | XMS_ITS | Clinical Summary ---
Author Organization [facility] Address [address] [place] [id number] Care Team Providers Care Thermodynamic Physicist Name Role Phone Larry Pringle MD Primary Care Provider [phone] Allergies No known active allergies Medications Medication [...] 04/16/2024 Active Injection Device for Insulin (InPen 908-Zoez-Gkegcek-Huma sp) DEVIIndications:Type 1 diabetes mellitus with diabetic [...] Advance Directives For more information, please contact: [phone] Latest Code Status on File Code Status Date Activated Date Inactivated Comments Full Code 01/18/2020 6:30 AM 01/20/2020 9:42 PM This code status was ascertained in the following way: discussion with patient . Care Teams Thermodynamic Physicist Relationship Specialty Start Date End Date Larry Pringle MD PCP - General Internal Medicine 08/07/20
--- OUTSIDE RECORDS SUMMARY | 2024-08-13 15:26 | XMS_ITS | Encounter Summary ---
Author Organization [facility] Address [address] [place] [id number] Care Team Providers Care Fourth Mate Name Role Phone Larry Pringle MD Primary Care Provider [phone] Cami Bush PhD Unavailable +1-000-000- [phone] Holley Fuller MD Unavailable [phone] Reyes Stephen PsyD Unavailable [phone] Cassi Berkowitz RN Unavailable [phone] Lisa Arita BEVERAGE DISTILLER Unavailable [phone] Jl Mcclain DIESEL STATIONARY ENGINEER Unavailable [phone] Darnell Cruz MD Unavailable [phone] Reason for Visit * Reason Comments Medication Refill Encounter Details Date Type Department Care Team (Late st Contact Info) Description 08/03/2024 Refill [facility] Dr. Larry Pringle [address] [place] [address] Rebekah Lea DIESEL STATIONARY ENGINEER [address] [place] [address] Gastroesophageal reflux disease without esophagitis [...] Description 11/11/2024 2:00 PM EDT Office Visit [facility] DEPARTMENT OF INTERNAL [facility]ODY Dr. Larry Pringle [address] [phone] Larry Pringle MD [address] [place] [phone] documented as of this encounter Visit Diagnoses Diagnosis Gastroesophageal reflux disease without esophagitis Esophageal reflux documented in this encounter Care Teams Fourth Mate Relationship Specialty Start Date End Date Larry Pringle MD [address] [place] [id number] PCP - General Internal Medicine 07/24/20 Cami Bush, PhD [address] [address] Clinical Psychologist Psychology 12/31/20 Holley Fuller MD [address] [place] [address] Physician Psychiatry, General 01/04/21 Reyes Stephen PsyD [address] [place] [address] Clinical Psychologist Psychology 01/05/21 Cassi Berkowitz, RN [address] [place] [address] Registered Nurse 01/07/21 Lisa rAita LCSW [address] [place] [address] Line Welder Social Work 04/14/21 Jl Mcclain APRN [address] [place] [address] Nurse Practitioner Psychiatry, General 04/16/21 Darnell Cruz MD [address] [place] [address] Psychiatry, General 04/20/21 documented as of this encounter
--- OUTSIDE RECORDS SUMMARY | 2024-08-13 15:26 | XMS_ITS | Encounter Summary ---
Author Organization [facility] Address [address] [place] [address] Care Team Providers Care Stem Roller Name Role Phone Larry Pringle MD Primary Care Provider [phone] Cami Bush PhD Unavailable +1-000-000- 0000 Holley Fuller MD Unavailable [phone] Reyes Stephen PsyD Unavailable [phone] Cassi Berkowitz RN Unavailable [phone] Lisa Arita MUCKER COFFERDAM Unavailable [phone] Jl Mcclain ELEMENTARY SCHOOL MUSIC TEACHER Unavailable [phone] Darnell Cruz MD Unavailable [phone] Encounter Details Date Type Department Care Team (Late st Contact Info) Description 03/31/2023 Scanned Document [facility] DE[facility] MEDICINE HARNED Dr. Larry Pringle [address] [facility] [address] [place] [address] Larry Pringle MD [address] [facility] [address] [place] [address] Social History Tobacco Use Types [...] Visit [facility] [address] Dr. Larry Pringle [address] [phone] Larry Pringle MD [address] [place] [address] documented as of this encounter Visit Diagnoses Not on filedocumented in this encounter Care Teams Stem Roller Relationship Specialty Start Date End Date Larry Pringle MD [address] [place] [phone] PCP - General Internal Medicine 07/24/20 Cami Bush, PhD [facility] [place] [phone] Clinical Psychologist Psychology 12/31/20 Holley Fuller MD [address] [place] [phone] Physician Psychiatry, General 01/04/21 Reyes Stephen PsyD [address] [place] [phone] Clinical Psychologist Psychology 01/05/21 Cassi Berkowitz, RN [address] [place] [address] Registered Nurse 01/07/21 Lisa Arita LCSW [address] [place] [address] Electronic Sales And Service Technician Social Work 04/14/21 Jl Mcclain APRN [address] [place] [address] Nurse Practitioner Psychiatry, General 04/16/21 Darnell Cruz MD [address] [place] [address] Psychiatry, General 04/20/21 documented as of this encounter
--- OUTSIDE RECORDS SUMMARY | 2024-08-13 15:26 | XMS_ITS | Continuity of Care Document ---
Author Organization [facility] Address [address] [place] [address] Phone Care Team Providers Care Field Support Rep Name Role Phone Larry Grimm MD Unavailable [...] Location Reason(s) For Visit Diagnoses Date Provider [facility], [address] [place] [address], [address] [place] [address] tel:[phone] OP A NBrit 40 [place] No Information 2023 Alfa Juarez. [address] [place] [address], [address] [place] [address], . tel:[phone] [facility], [address] [place] [address], [address] [place] [address] tel:[phone] OP A NBrit [address] Medication Management (chief complaint)Dep ression (chief complaint) 2023 Alfa Juarez. [address] [place] [address], [address] [place] [address], . tel:[phone] [facility], [address] [place] [address], [address] [place] [address] tel:[phone] OP A NBrit [address] Medication Management (chief complaint)Dep ression (chief complaint) 2023 Alfa Juarez. [address] [place] [address], [address] [place] [address], . tel:[phone] [facility], [address] [place] [address], [facility], tel:[phone] OP A NBrit 40 R[address] Medication Management (chief complaint)Dep ression (chief complaint) Body mass index (BMI) 23.0-23.9, adult 2023 Alfa Juarez. [address] [place] [address], [address] [place] [address], . tel:[phone] [facility], [address] [place] [address], [facility], tel:[phone] OP A NBrit 40 Rushing 2023 Batsheva Harris. [address] [place] [address], [address] [place] [address], [place]. tel:[phone] [facility], [address] [place] [address], [facility], tel:[phone] OP A NBrit 40 Rushing 2023 Batsheva Harris. [address] [place] [address], [address] [place] [address], [place]. tel:[phone] [facility], [address] [place] [address], [facility], tel:[phone] OP A NBrit [address] Medication Management (chief complaint)Dep ression (chief complaint) 2023 Alfa Juarez. [address] [place] [address], [address] [place] [address], . tel:[phone] [facility], [address] [place] [address], [facility], tel:[phone] OP A NBrit 40 [address] Medication Management (chief complaint)Dep ression (chief complaint) 2023 Alfa Juarez. [address] [place] [address], [address] [place] [address], [place]. tel:[phone] [facility], [address] [place] [address], [facility], tel:[phone] OP A NBrit 40 Rushing 2022 Kevin Rosenberg. [address] [place] [address], [address] [place] [address], [place]. tel:[phone] [facility], [address] [place] [address], [facility], tel:[phone] OP A NBrit 40 R[address] Medication Management (chief complaint)Dep ression (chief complaint) Body mass index (BMI) 22.0-22.9, adult 2022 Alfa Juarez. [address] [place] [address], [address] [place] [address], . tel:[phone] [facility], [address] [place] [address], [facility], tel:[phone] OP A NBrit 40 Rushing 2022 Kevin Shakira. [address] [place] [address], [address] [place] [address], . tel:[phone] [facility], [address] [place] [address], [facility], tel:[phone] OP A NBrit 40 Rushing Body mass index (BMI) 22.0-22.9, adult 2022 Alfa Juarez. [address] [place] [address], [address] [place] [address], [place]. tel:[phone] [facility], [address] [place] [address], [facility], tel:[phone] OP A NBrit 40 [address] 2022 Alphonsoramsey [place]. [address] [place] [address], [address] [place] [address], . tel:[phone] As per patient privacy policy some of the clinical information may not be visible. Family History Family Member Type Diagnosis Age At Onset No Information Payers Payer name Insurance type Covered democrat ID Arelis bell(s) Vickie Burr [id number] Social History Type Description Quantity Date Captured [...] Order: Lab Order COMPREHE NSIVE METABOLIC PANEL ([id number]), Sent on: Sent Future Order: Lab Order VALPROIC ACID ([id number]), Sent on: Sent Future Order: Lab Order CBC (INC LUDES DIFF/PLT) ([id number]), Sent on: Sent Future Order: Lab Order COMPREHE NSIVE METABOLIC PANEL ([id number]), Sent on: Sent Future Order: Lab Order HEMOGLOB IN A1C ([id number]), Sent on: Sent Future Order: Lab Order LIPID PA JAY ([id number]), Sent on: Sent Future Order: Lab Order TSH, 3RD GENERATION ([id number]), Sent on: Sent Future Order: Lab Order VALPROIC ACID ([id number]), Sent on: Sent Future Order: Lab Order VITAMIN B12/FOLATE, SERUM PANEL ([id number]), Sent on: Sent Future Order: Lab Order VITAMIN D,25-OH,TOTAL,IA ([id number]), Sent on: Sent History Of Present Illness [...] [place] [...] to wear off. He is seeing his java groovy developer and A1C is around 7; also seeing [...] weight gain. Instructions Date Instruction Additional Infor mation Giving encouragement to exercise Related to Body mass index [BMI] 23.0-23.9, adult Dietary management e ducation, guidance, and counseling Related to Body mass index [BMI] 23.0-23.9, adult Giving encouragement to exercise Related to Body mass index [BMI] 22.0-22.9, adult Lifestyle education regarding di et Related [...]
--- OUTSIDE RECORDS SUMMARY | 2024-08-13 15:26 | XMS_ITS | Clinical Summary ---
Author Organization [facility] Address [address] [place] [address] Care Team Providers Care Needle Loom Weaver Name Role Phone Larry Pringle MD Primary Care Provider [phone] Cami Bush PhD Unavailable [phone] Holley Fuller MD Unavailable [phone] Reyes Stephen PsyD Unavailable [phone] Cassi Berkowitz RN Unavailable [phone] Lisa Arita SEWING LINE BALER Unavailable [phone] Jl Mcclain APRN Unavailable [phone] Darnell Cruz MD Unavailable [phone] Allergies No known active allergies Medications Medication [...] from the original note were not included. Melty No information on file. MY SAFETY PLAN Name: Jewel Rehman Date: 09/29/2021 MR#: [id number] The one thing that is most important [...] Resources: [place] infoline 211, Suicide Prevention Lifeline 0-372-154-ZHKK (4594), Text Hello to [id number], 365 Step 6 - Making the environment safe/access to guns: No access to weapons, no stock piled medications This tool has been adapted from the [employer] Safety Plan [facility] Form 710892 R10-18 Pg 1 of 1 Cannabis use [...] Refill [facility] [address] Larry Pringle [address] COUNT INCLUDES THE [facility] [address] [place] [phone] Venu Rebekah, SCOUT EXECUTIVE Gastroesophageal reflux disease without esophagitis from Last [...] Description 11/11/2024 2:00 PM EDT Office Visit [facility] Dr. Larry Pringle [address] [facility] [address] [place] [address] Larry Pringle MD [address] [facility] [address] [place] [address] Health Maintenance Due Date Last [...] PM EDT) Cholesterol, Total 166 <200 mg/dL Inside [facility] Cholesterol, HDL 44 > OR = 40 mg/dL [facility] Triglycerides 104 <150 mg/dL [facility] LDL Cholesterol 102(H) mg/dL (calc) Inside [facility] Comment: Reference range: <100 Desirable range <100 mg/dL for primary prevention; ?? <70 mg/dL for patients with CHD or diabetic patients with > or = 2 CHD risk factors. LDL-C is now calculated using the Gilmar-Hernandez calculation, which is a validated novel method providing better accuracy than the Friedewald equation in the estimation of LDL-C. Gilmar VERNON et al. FAITH. 2013;310(19): 3160-2906 (http://education.WoraPay/faq/ZLX457) Cholesterol/HDL Ratio 3.8 <5.0 (calc) Inside [facility] Non HDL Chol. (LDL+VLDL) 122 <130 mg/dL (calc) Inside [facility] Comment: For patients with diabetes plus 1 major ASCVD risk factor, treating to a non-HDL-C goal of <100 mg/dL (LDL-C of <70 mg/dL) is considered a therapeutic option. Blood specimen (specimen) Blood specimen / Unknown 01/11/2024 1:27 PM EDT 01/11/2024 1:28 PM EDT Narrative [facility] - 01/12/2024 4:36 AM EDT FASTING:YES FASTING: YES [facility] SCOUT EXECUTIVE LAB BLOOD ORDERABLE S Performing Organization Address [facility] Co de Phone Number [employer] [address] [place] [phone] * HIV 1/2 Ag/Ab CMIA Reflex to Confirmation (01/11/2024 1:27 PM EDT) HIV Ag/Ab, 4th Gen NON-REACT LIZZIE NON-REACT LIZZIE Inside Social Comment: HIV-1 antigen and HIV-1/HIV-2 antibodies were [...] ?? For additional information please refer to http://education.Prediculous.BCM Solutions/faq/ABE547 (This link is being provided for informational/ educational purposes only.) The performance of this assay has not been clinically validated in patients less than 2 years old. Blood specimen (specimen) Blood specimen / Unknown 01/11/2024 1:27 PM EDT 01/11/2024 1:28 PM EDT Narrative [facility] - 01/12/2024 4:36 AM EDT FASTING:YES FASTING: YES [facility]EC[facility] LAB BLOOD ORDERABLE S Performing Organization Address [facility]/ZIP Co de Phone Number [employer] [address] [place] [phone] * (ABNORMAL) HEMOGLOBIN A1C WITH ESTIMATED AVERAGE GLUCOSE (01/11/2024 1:27 PM EDT) [facility] Hemoglobin A1C 8.0(H) <5.7 % of total Hgb Inside [facility] Comment: For someone without known diabetes, a [...] ?? Estimated Average Glucose (mg/dL) 183 mg/dL [facility] Estimated Average Glucose (mmol/L) 10.1 mmol/L Inside [facility] Comment: ? This test was performed on the Ana Laura jordan c503 platform. Effective 08/28/23, a change in test platforms from the [employer] Outreach Manager to the Ana Laura jordan c503 may have shifted HbA1c results compared to historical results. Based on laboratory validation testing conducted at [facility], the Ana Laura platform relative to the [...] PM EDT 01/11/2024 1:28 PM EDT Narrative [facility] - 01/12/2024 4:36 AM EDT FASTING:YES FASTING: YES [facility] SC[facility] EXECUTIVE LAB BLOOD ORDERABLE S [employer] [address] [place] [phone] * HEPATITIS C VIRUS (HCV) ANTIBODY (01/11/2024 1:27 PM EDT) [facility] Hepatitis C Antibody NON-REACT LIZZIE NON-REACT LIZZIE Inside [facility] Comment: HCV antibody was non-reactive. There is no laboratory evidence of HCV infection. In most cases, no further action is required. However, if recent HCV exposure is suspected, a test for HCV RNA (test code 25874) is suggested. For additional information please refer to http://education.iMusica/faq/FBX76h7 (This link is being provided for informational/ educational purposes only.) 01/11/2024 1:27 PM EDT 01/11/2024 1:28 PM EDT Narrative [facility] - 01/12/2024 4:36 AM EDT FASTING:YES FASTING: YES [facility] LAB BLOOD ORDERABLE S [employer] [address] [place] [phone] * Comprehensive Metabolic Panel (01/11/2024 1:27 PM EDT) Glucose 95 65 - 99 mg/dL Inside [facility] Comment: ? Fasting reference interval Blood Urea Nitrogen (BUN) 11 7 - 25 mg/dL [facility] Creatinine 0.90 0.60 - 1.24 mg/dL [facility] Creatinine w/ eGFR 122 > OR = 60 mL/min/1. 73m2 [facility] BUN/Creatinine Ratio SEE NOTE: (calc) [facility] Comment: ?? Not Reported: BUN and Creatinine are within ?? reference range. ? Sodium 139 135 - 146 mmol/L [facility] Potassium 5.1 3.5 - 5.3 mmol/L [facility] Chloride 103 98 - 110 mmol/L [facility] CO2 25 20 - 32 mmol/L [facility] Calcium 9.7 8.6 - 10.3 mg/dL [facility] Protein, Total 6.8 6.1 - 8.1 g/dL [facility] Albumin 4.4 3.6 - 5.1 g/dL [facility] Globulin 2.4 1.9 - 3.7 g/dL (calc) Inside [facility] Albumin/Globuli n Ratio 1.8 1.0 - 2.5 (calc) Inside [facility] Bilirubin, Total 0.4 0.2 - 1.2 mg/dL [facility] Alkaline Phosphatase 69 36 - 130 U/L [facility] Aspartate Aminotrans (AST) 15 10 - 40 U/L [facility] Alanine Aminotrans (ALT) 10 9 - 46 U/L [facility] Blood specimen (specimen) Blood specimen / Unknown 01/11/2024 1:27 PM EDT 01/11/2024 1:28 PM EDT Narrative [facility] - 01/12/2024 4:36 AM EDT FASTING:YES FASTING: YES Rebekah Lea SCOUT EXECUTIVE LAB BLOOD ORDERABLE S [employer] [address] [place] [phone] from Last 3 Months or Most Recently [...] 11:39 AM 05/23/2021 2:51 AM Care Teams Needle Loom Weaver Relationship Specialty Start Date End Date Larry Pringle MD [address] [facility] [address] [place] [id number] PCP - General Internal Medicine 07/24/20 Cami Bush, PhD [address] [place] [address] Clinical Psychologist Psychology 12/31/20 Holley Fuller MD [address] [place] [id number] Physician Psychiatry, General 01/04/21 Reyes Stephen PsyD [address] [place] [address] Clinical Psychologist Psychology 01/05/21 Cassi Berkowitz, SHEREE [address] [place] [address] Registered Nurse 01/07/21 Lisa Arita LCSW [address] [place] [address] Electrical Designer Social Work 04/14/21 Jl Mcclain, SCOUT EXECUTIVE [address] [place] [address] Nurse Practitioner Psychiatry, General 04/16/21 Darnell Cruz MD [address] [place] [address] Psychiatry, General 04/20/21
[2024-08-13 16:01] LABS: Glucose, Whole Blood 102 mg/dL (60-115)
[2024-08-13 16:36] LABS: Anion Gap 15 (12-20); Blood Urea Nitrogen 13 mg/dL (9-16); Calcium 8.4 mg/dL (8.4-10.2); Carbon Dioxide 19 mmol/L (22-29); Chloride 111 mmol/L (96-108); Creatinine Clr Calc Pharmacy 137.1; Estimated Glomerular Filt Rate > 60; Glucose Random 119 mg/dL (60-115); Magnesium 1.8 mg/dL (1.6-2.6); Phosphorus 2.7 mg/dL (2.7-4.5); Potassium 4.2 mmol/L (3.3-5.1); Sodium 141 mmol/L (135-145)
[2024-08-13 16:59] LABS: Glucose, Whole Blood 122 mg/dL (60-115)
[2024-08-13] MEDS: Pantoprazole Sodium 40 MG/10 ML VIAL IVPUSH (17:36)
[2024-08-13] MEDS: Insulin Glargine,Hum.rec.anlog 100 UNIT/ML 10 ML VIAL 22 UNIT SUBCUT (18:32)
--- NOTE | 2024-08-13 19:18 | PC.NURSE ---
Pt Alert & Oriented. RA. Sinus Rhythm/Sinus Kye. Skin Intact?? Abdomen soft, non-tender, Intermittent nausea and vomiting, Zofran prn-per MAR. ?Insulin gtt transition to SQ -see MAR Peripheral IVs
[2024-08-13 20:42] LABS: Anion Gap 16 (12-20); Blood Urea Nitrogen 12 mg/dL (9-16); Calcium 8.2 mg/dL (8.4-10.2); Carbon Dioxide 18 mmol/L (22-29); Chloride 108 mmol/L (96-108); Creatinine Clr Calc Pharmacy 123.3; Estimated Glomerular Filt Rate > 60; Glucose Random 196 mg/dL (60-115); Magnesium 1.6 mg/dL (1.6-2.6); Phosphorus 2.3 mg/dL (2.7-4.5); Potassium 4.3 mmol/L (3.3-5.1); Sodium 138 mmol/L (135-145)
[2024-08-13] MEDS: Ketorolac Tromethamine 15 MG/ML VIAL IVPUSH (20:44)
[2024-08-13] MEDS: Dextrose 5 % and Lactated Ring 1,000 ML 100 ML IVCONT (21:14)
[2024-08-13] MEDS: Insulin Regular/NS 100 UNIT/100 ML PLAST..BAG IVCONT (21:14)
[2024-08-13] MEDS: Enoxaparin Sodium 40 MG/0.4 ML SYRINGE SUBCUT (21:15)
[2024-08-13 21:17] LABS: Glucose, Whole Blood 189 mg/dL (60-115)
[2024-08-13 22:18] LABS: Glucose, Whole Blood 209 mg/dL (60-115)
[2024-08-13 23:21] LABS: Glucose, Whole Blood 182 mg/dL (60-115)
[2024-08-14] VITALS (25 sets, daily range): BP systolic 99–141; BP diastolic 45–82; PULSE 42–91; RESP 13–23; TEMP 36.8–37.9; O2SAT 92–100; BMI 23.3
[2024-08-14 00:14] LABS: Glucose, Whole Blood 150 mg/dL (60-115)
[2024-08-14] MEDS: Nicotine 14 MG PATCH.TD24 TRANSDERMA ×2 (01:11→09:50)
[2024-08-14 01:13] LABS: Glucose, Whole Blood 107 mg/dL (60-115)
[2024-08-14] MEDS: ondansetron HCL 4 MG/2 ML VIAL IVPUSH ×4 (01:14→23:52)
[2024-08-14 01:33] LABS: Appearance Urine Clear; Color Urine Yellow; Glucose Urine UA 500 mg/dL (Negative); Leukocyte Esterase Urine Negative (Negative); Nitrite Urine Negative (Negative); Specific Gravity - Urine 1.025 (1.005-1.025); Urine Blood Negative (Negative); Urine Ketones 80 mg/dL (Negative); Urine Protein Negative (Neg-Trace)
[2024-08-14 02:20] LABS: Glucose, Whole Blood 90 mg/dL (60-115)
[2024-08-14 02:53] LABS: Glucose, Whole Blood 84 mg/dL (60-115)
[2024-08-14 03:32] LABS: Glucose, Whole Blood 62 mg/dL (60-115)
[2024-08-14] MEDS: Dextrose 50 % 25 GM/50 ML SYRINGE IVPUSH (03:35)
[2024-08-14] MEDS: Ketorolac Tromethamine 15 MG/ML VIAL IVPUSH ×3 (03:40→20:51)
[2024-08-14 03:54] LABS: Glucose, Whole Blood 176 mg/dL (60-115)
[2024-08-14 05:04] LABS: Glucose, Whole Blood 166 mg/dL (60-115)
[2024-08-14 05:36] LABS: VBG Base Excess -1.1 mmol/L; VBG HCO3 22 mmol/L (22-26); VBG pCO2 33 mmHg; VBG pH 7.43 (7.32-7.43); VBG pO2 67 mmHg
[2024-08-14] MEDS: Pantoprazole Sodium 40 MG/10 ML VIAL IVPUSH (05:36)
[2024-08-14 05:41] LABS: Venous Blood Gas Refer to POC result
[2024-08-14 05:48] LABS: MANUAL DIFF FLAG NO
[2024-08-14 05:50] LABS: Basophils Percent Auto 0.4 % (0-2); Eosinophils Percent Auto 0.1 % (0-4); Hematocrit 37.6 % (42.0-52.0); Hemoglobin 12.9 g/dl (14.0-18.0); Imm Gran Abs Auto 0.02 X10*3/uL (0.00-0.03); Imm Gran Pct Auto 0.3 % (0.0-0.4); Lymphocytes Absolute Auto 1.4 X10*3/uL (1.2-4.9); Lymphocytes Percent Auto 17.6 % (20-40); Mean Corpuscular HGB Conc 34.3 g/dl (31.0-36.0); Mean Corpuscular Hemoglobin 28.5 pg (27.0-33.0); Mean Corpuscular Volume 83.2 fL (80.0-98.0); Mean Platelet Volume 10.5 fL (9.4-12.4); Monocytes Absolute Auto 1.1 X10*3/uL (0.1-1.2); Monocytes Percent Auto 14.3 % (2-11); Neutrophils Absolute Auto 5.2 x10*3/uL (2.0-8.3); Neutrophils Percent Auto 67.3 % (45-73); Platelet Count 404 X10*3/uL (160-400); Red Blood Count 4.52 X10*6/uL (4.60-5.80); White Blood Count 7.7 X10*3/uL (4.8-10.8)
--- NOTE | 2024-08-14 06:00 | ECG_ITS ---
Test Reason : QTc Monitoring Blood Pressure : */* mmHG Vent. Rate : 49 BPM Atrial Rate : 49 BPM P-R Int : 116 ms QRS Dur : 98 ms QT Int : 514 ms P-R-T Axes : -23 69 58 degrees QTcB Int : 464 ms Sinus bradycardia Otherwise normal ECG When compared with ECG of 12-Aug-2024 18:18, QT has lengthened Referred By: Nataliya Jackson Electronically Signed By: HELADIO ROWAN
[2024-08-14 06:10] LABS: Anion Gap 14 (12-20); Blood Urea Nitrogen 10 mg/dL (9-16); Calcium 8.3 mg/dL (8.4-10.2); Carbon Dioxide 20 mmol/L (22-29); Chloride 110 mmol/L (96-108); Creatinine Clr Calc Pharmacy 124.5; Estimated Glomerular Filt Rate > 60; Glucose Random 153 mg/dL (60-115); Magnesium 1.7 mg/dL (1.6-2.6); Phosphorus 1.9 mg/dL (2.7-4.5); Potassium 3.6 mmol/L (3.3-5.1); Sodium 140 mmol/L (135-145)
[2024-08-14 06:10] LABS: Glucose, Whole Blood 136 mg/dL (60-115)
[2024-08-14] MEDS: Dextrose 5 % and Lactated Ring 1,000 ML 150 ML IVCONT ×2 (06:27→13:40)
--- NOTE | 2024-08-14 07:18 | PC.NURSE ---
Assumed care of this patient at 19:00. Pt is A&Ox4. Seen in the ICU with flu, colitis, and DKA. Pt reported poor po intake at dinner earlier prior to assuming care, reported he was only able to tolerate a few bites after which he stated he became nauseous. Pt has been NPO since assuming care due to continued intermittent nausea/dry heaving without vomiting tonight. Medicated per COMPUTER NETWORK ENGINEER Kayli Spann with prn zofran. EKG obtained overnight to assess QTc per COMPUTER NETWORK ENGINEER request. Medicated with toradol x2 for (bilateral flank, generalized abdominal) pain with +effect. Heat packs and abdominal splinting also effective for abdominal pain per pt. Repeat labs obtained this evening per covering provider Kayli Spann COMPUTER NETWORK ENGINEER. Serum glucose back 196 and anion gap 18. COMPUTER NETWORK ENGINEER orders to keep patient NPO with okay for po meds and ice chips as requested/tolerated; further orders to restart D5/LR at 100ml/hr and restart insulin gtt at 4 units/hr with q1hr POCs. Insulin gtt titrated per MAR and COMPUTER NETWORK ENGINEER verbal orders.? 03:29 Pt POC was 62. The patient was alert and conversing with the quality analyst/technical writer during this, with pt?s only complaint being generalized abdominal pain. Insulin gtt was immediately paused and the COMPUTER NETWORK ENGINEER was notified. Verbal orders were received to pause IVFs and administered 25gm D50 and recheck POC 15 minutes post-D50 administration. Prn toradol was administered for pain. Recheck POC was 175. COMPUTER NETWORK ENGINEER made aware. Insulin gtt restarted at 1unit/hr per COMPUTER NETWORK ENGINEER with verbal orders to recheck POC one hour after restart. Recheck showed POC 166, with COMPUTER NETWORK ENGINEER order to continue and recheck in one hour. Final POC for this quality analyst/technical writer was 136. COMPUTER NETWORK ENGINEER made aware and labs reviewed. COMPUTER NETWORK ENGINEER verbal order to continue insulin gtt at 1unit/hr and increase D5/LR to 150ml/hr as pt remains nauseous requiring prn zofran. Please see Insulin Infusion Order Form, MAR, shift assessments, and tasks in worklist for full details.?
[2024-08-14 07:19] LABS: Glucose, Whole Blood 175 mg/dL (60-115)
[2024-08-14 08:03] LABS: Glucose, Whole Blood 160 mg/dL (60-115)
--- NOTE | 2024-08-14 08:29 | PM.CCPN ---
Subjective Subjective Date of Service: 08/14/24 Interval History: no significant overnight events; unable to tolerate PO d/t persistent nausea/vomiting; of note, w/ additional history-taking, patient reports marijuana use Critical Care Time (minutes): 0 Physical Exam Vital Signs: Vital Signs: Last Vital Signs Temp 98.8 F 08/14/24 08:00 Pulse 51 08/14/24 08:00 Resp 21 H 08/14/24 08:00 BP 115/62 08/14/24 08:00 Pulse Ox 100 08/14/24 08:00 O2 Del Method Room Air 08/14/24 08:00 BMI result Body Mass Index 23.3 Const: General: cooperative, healthy appearing, comfortable, no acute distress, well developed, alert, awake and Physically active Orientation/consciousness: patient oriented x3 HEENT: Head: Yes normal to inspection, Yes normocephalic and Yes atraumatic Eyes: General: appearance normal, both eyes and all related structures Neck: Neck: Yes normal visual inspection, Yes full ROM, Yes no meningeal signs, Yes trachea midline and Yes supple Chest: Chest palpation & inspection: normal inspection of the chest Resp: Other: no appreciable rales, rhonchi, wheezin Effort & Inspection: normal respiratory effort Cardio: Rate: regular rate Rhythm: regular rhythm GI: Inspection: Yes normal to inspection, No Abdominal wall edema and No distended Palpation (GI): Soft to palpation, not firm, nontender, no guarding and not rigid Skin: General skin exam: no rashes or lesions noted Neuro: General: patient oriented x3, tone normal, moves all extremities, no meningeal signs and no focal motor deficits Extrem: General: Yes normal to inspection, Yes full ROM, Yes capillary refill normal and Yes no clubbing, cyanosis or edema Psych: Appearance: grossly normal Objective Data Labs 08/14/24 05:28 08/14/24 05:28 Labs: Laboratory Results - last 24 hr 08/13/24 08/13/24 08/13/24 08:43 09:48 10:49 WBC RBC Hgb Hct MCV MCH MCHC RDW Plt Count MPV Immature Gran % (Auto) Neut % (Auto) Lymph % (Auto) [place] % (Auto) Eos % (Auto) Baso % (Auto) Lymph # (Auto) [place] # (Auto) Eos # (Auto) Baso # (Auto) Abs Immat Gran (auto) Absolute Neuts (auto) Absolute Nucleated RBC Nucleated RBC % (auto) VBG pH VBG pCO2 VBG pO2 VBG HCO3 VBG O2 Saturation VBG Base Excess Sodium Potassium Chloride Carbon Dioxide Anion Gap BUN Creatinine Estim Creat Clear Calc Estimated GFR POC Glucose 266 H 214 H 181 H Random Glucose Calcium Phosphorus Magnesium Urine Color Urine Appearance Urine pH Ur Specific [place] Urine Protein Urine Glucose (UA) Urine Ketones Urine Blood Urine Nitrite Ur Leukocyte Esterase 08/13/24 08/13/24 08/13/24 11:54 12:01 13:05 WBC RBC Hgb Hct MCV MCH MCHC RDW Plt Count MPV Immature Gran % (Auto) Neut % (Auto) Lymph % (Auto) [place] % (Auto) Eos % (Auto) Baso % (Auto) Lymph # (Auto) [place] # (Auto) Eos # (Auto) Baso # (Auto) Abs Immat Gran (auto) Absolute Neuts (auto) Absolute Nucleated RBC Nucleated RBC % (auto) VBG pH VBG pCO2 VBG pO2 VBG HCO3 VBG O2 Saturation VBG Base Excess Sodium 140 Potassium 3.9 Chloride 110 H Carbon Dioxide 19 L Anion Gap 15 BUN 14 Creatinine 0.92 Estim Creat Clear Calc 132.7 Estimated GFR > 60 POC Glucose 141 H 116 H Random Glucose 177 H Calcium 8.8 Phosphorus 2.5 L Magnesium 1.8 Urine Color Urine Appearance Urine pH Ur Specific [place] Urine Protein Urine Glucose (UA) Urine Ketones Urine Blood Urine Nitrite Ur Leukocyte Esterase 08/13/24 08/13/24 08/13/24 13:55 14:57 15:57 WBC RBC Hgb Hct MCV MCH MCHC RDW Plt Count MPV Immature Gran % (Auto) Neut % (Auto) Lymph % (Auto) [place] % (Auto) Eos % (Auto) Baso % (Auto) Lymph # (Auto) [place] # (Auto) Eos # (Auto) Baso # (Auto) Abs Immat Gran (auto) Absolute Neuts (auto) Absolute Nucleated RBC Nucleated RBC % (auto) VBG pH VBG pCO2 VBG pO2 VBG HCO3 VBG O2 Saturation VBG Base Excess Sodium Potassium Chloride Carbon Dioxide Anion Gap BUN Creatinine Estim Creat Clear Calc Estimated GFR POC Glucose 89 94 102 Random Glucose Calcium Phosphorus Magnesium Urine Color Urine Appearance Urine pH Ur Specific [place] Urine Protein Urine Glucose (UA) Urine Ketones Urine Blood Urine Nitrite Ur Leukocyte Esterase 08/13/24 08/13/24 08/13/24 16:01 16:56 20:05 WBC RBC Hgb Hct MCV MCH MCHC RDW Plt Count MPV Immature Gran % (Auto) Neut % (Auto) Lymph % (Auto) [place] % (Auto) Eos % (Auto) Baso % (Auto) Lymph # (Auto) [place] # (Auto) Eos # (Auto) Baso # (Auto) Abs Immat Gran (auto) Absolute Neuts (auto) Absolute Nucleated RBC Nucleated RBC % (auto) VBG pH VBG pCO2 VBG pO2 VBG HCO3 VBG O2 Saturation VBG Base Excess Sodium 141 138 Potassium 4.2 4.3 Chloride 111 H 108 Carbon Dioxide 19 L 18 L Anion Gap 15 16 BUN 13 12 Creatinine 0.89 0.99 Estim Creat Clear Calc 137.1 123.3 Estimated GFR > 60 > 60 POC Glucose 122 H Random Glucose 119 H 196 H Calcium 8.4 8.2 L Phosphorus 2.7 2.3 L Magnesium 1.8 1.6 Urine Color Urine Appearance Urine pH Ur Specific [place] Urine Protein Urine Glucose (UA) Urine Ketones Urine Blood Urine Nitrite Ur Leukocyte Esterase 08/13/24 08/13/24 08/13/24 21:14 22:13 23:17 WBC RBC Hgb Hct MCV MCH MCHC RDW Plt Count MPV Immature Gran % (Auto) Neut % (Auto) Lymph % (Auto) [place] % (Auto) Eos % (Auto) Baso % (Auto) Lymph # (Auto) [place] # (Auto) Eos # (Auto) Baso # (Auto) Abs Immat Gran (auto) Absolute Neuts (auto) Absolute Nucleated RBC Nucleated RBC % (auto) VBG pH VBG pCO2 VBG pO2 VBG HCO3 VBG O2 Saturation VBG Base Excess Sodium Potassium Chloride Carbon Dioxide Anion Gap BUN Creatinine Estim Creat Clear Calc Estimated GFR POC Glucose 189 H 209 H 182 H Random Glucose Calcium Phosphorus Magnesium Urine Color Urine Appearance Urine pH Ur Specific [place] Urine Protein Urine Glucose (UA) Urine Ketones Urine Blood Urine Nitrite Ur Leukocyte Esterase 08/14/24 08/14/24 08/14/24 00:10 01:09 01:22 WBC RBC Hgb Hct MCV MCH MCHC RDW Plt Count MPV Immature Gran % (Auto) Neut % (Auto) Lymph % (Auto) [place] % (Auto) Eos % (Auto) Baso % (Auto) Lymph # (Auto) [place] # (Auto) Eos # (Auto) Baso # (Auto) Abs Immat Gran (auto) Absolute Neuts (auto) Absolute Nucleated RBC Nucleated RBC % (auto) VBG pH VBG pCO2 VBG pO2 VBG HCO3 VBG O2 Saturation VBG Base Excess Sodium Potassium Chloride Carbon Dioxide Anion Gap BUN Creatinine Estim Creat Clear Calc Estimated GFR POC Glucose 150 H 107 Random Glucose Calcium Phosphorus Magnesium Urine Color Yellow Urine Appearance Clear Urine pH 6.0 Ur Specific [place] 1.025 Urine Protein Negative Urine Glucose (UA) 500 H Urine Ketones 80 Urine Blood Negative Urine Nitrite Negative Ur Leukocyte Esterase Negative 08/14/24 08/14/24 08/14/24 02:13 02:50 03:29 WBC RBC Hgb Hct MCV MCH MCHC RDW Plt Count MPV Immature Gran % (Auto) Neut % (Auto) Lymph % (Auto) [place] % (Auto) Eos % (Auto) Baso % (Auto) Lymph # (Auto) [place] # (Auto) Eos # (Auto) Baso # (Auto) Abs Immat Gran (auto) Absolute Neuts (auto) Absolute Nucleated RBC Nucleated RBC % (auto) VBG pH VBG pCO2 VBG pO2 VBG HCO3 VBG O2 Saturation VBG Base Excess Sodium Potassium Chloride Carbon Dioxide Anion Gap BUN Creatinine Estim Creat Clear Calc Estimated GFR POC Glucose 90 84 62 Random Glucose Calcium Phosphorus Magnesium Urine Color Urine Appearance Urine pH Ur Specific [place] Urine Protein Urine Glucose (UA) Urine Ketones Urine Blood Urine Nitrite Ur Leukocyte Esterase 08/14/24 08/14/24 08/14/24 03:50 05:00 05:28 WBC 7.7 RBC 4.52 L Hgb 12.9 L Hct 37.6 L MCV 83.2 MCH 28.5 MCHC 34.3 RDW 13.0 Plt Count 404 H MPV 10.5 Immature Gran % (Auto) 0.3 Neut % (Auto) 67.3 Lymph % (Auto) 17.6 L [place] % (Auto) 14.3 H Eos % (Auto) 0.1 Baso % (Auto) 0.4 Lymph # (Auto) 1.4 [place] # (Auto) 1.1 Eos # (Auto) 0.0 Baso # (Auto) 0.0 Abs Immat Gran (auto) 0.02 Absolute Neuts (auto) 5.2 Absolute Nucleated RBC 0.000 Nucleated RBC % (auto) 0.0 VBG pH VBG pCO2 VBG pO2 VBG HCO3 VBG O2 Saturation VBG Base Excess Sodium 140 Potassium 3.6 Chloride 110 H Carbon Dioxide 20 L Anion Gap 14 BUN 10 Creatinine 0.98 Estim Creat Clear Calc 124.5 Estimated GFR > 60 POC Glucose 176 H 166 H Random Glucose 153 H Calcium 8.3 L Phosphorus 1.9 L Magnesium 1.7 Urine Color Urine Appearance Urine pH Ur Specific [place] Urine Protein Urine Glucose (UA) Urine Ketones Urine Blood Urine Nitrite Ur Leukocyte Esterase 08/14/24 08/14/24 08/14/24 05:33 06:06 07:15 WBC RBC Hgb Hct MCV MCH MCHC RDW Plt Count MPV Immature Gran % (Auto) Neut % (Auto) Lymph % (Auto) [place] % (Auto) Eos % (Auto) Baso % (Auto) Lymph # (Auto) [place] # (Auto) Eos # (Auto) Baso # (Auto) Abs Immat Gran (auto) Absolute Neuts (auto) Absolute Nucleated RBC Nucleated RBC % (auto) VBG pH 7.43 VBG pCO2 33 VBG pO2 67 VBG HCO3 22 VBG O2 Saturation 97.0 VBG Base Excess -1.1 Sodium Potassium Chloride Carbon Dioxide Anion Gap BUN Creatinine Estim Creat Clear Calc Estimated GFR POC Glucose 136 H 175 H Random Glucose Calcium Phosphorus Magnesium Urine Color Urine Appearance Urine pH Ur Specific [place] Urine Protein Urine Glucose (UA) Urine Ketones Urine Blood Urine Nitrite Ur Leukocyte Esterase 08/14/24 07:59 WBC RBC Hgb Hct MCV MCH MCHC RDW Plt Count MPV Immature Gran % (Auto) Neut % (Auto) Lymph % (Auto) [place] % (Auto) Eos % (Auto) Baso % (Auto) Lymph # (Auto) [place] # (Auto) Eos # (Auto) Baso # (Auto) Abs Immat Gran (auto) Absolute Neuts (auto) Absolute Nucleated RBC Nucleated RBC % (auto) VBG pH VBG pCO2 VBG pO2 VBG HCO3 VBG O2 Saturation VBG Base Excess Sodium Potassium Chloride Carbon Dioxide Anion Gap BUN Creatinine Estim Creat Clear Calc Estimated GFR POC Glucose 160 H Random Glucose Calcium Phosphorus Magnesium Urine Color Urine Appearance Urine pH Ur Specific [place] Urine Protein Urine Glucose (UA) Urine Ketones Urine Blood Urine Nitrite Ur Leukocyte Esterase Progress Note: A&P Assessment and plan (1) Diabetic ketoacidosis: Status: Acute (2) Influenza A: Status: Acute (3) Colitis: Status: Acute Plan Patient is a 24 Y M w/ type I diabetes mellitus, c/b prior DKA, presenting initially to emergency department on 08/12 w/ nausea/vomiting/diarrhea, found to have influenza as well as CT A/P demonstrating colitis, initially admitted to medicine, though developed DKA N: no acute issues CV: no acute issues; appreciable sinus bradycardia; to monitor QTc interval in setting of anti-nausea medications, antibiotics R: no acute issues GI: n/v d/t influenza, colitis; NPO while on DKA protocol; advance to diabetic diet when appropriate : no acute issues H: no acute issues; chemical DVT prophylaxis w/ enoxaparin SQ ID: influenza on oseltamivir; colitis on ciprofloxacin/metronidazole E: type I diabetes melltius c/b DKA, on DKA protocol P: no acute issues Quality Stroke Does the patient have a stroke diagnosis?: No VTE Prior VTE?: No VTE Risk Level:: Medical - moderate - high VTE Device Contraindication: Treatment Not Indicated VTE Drug Contraindication: N/A - Med Ordered
[2024-08-14 08:57] LABS: Glucose, Whole Blood 172 mg/dL (60-115)
[2024-08-14] MEDS: Oseltamivir Phosphate 75 MG CAPSULE PO ×2 (09:49→21:31)
[2024-08-14] MEDS: Ciprofloxacin Lactate/D5W 400 MG/200 ML PIGGYBACK 200 MG IV ×2 (09:49→21:30)
[2024-08-14] MEDS: 0.9 % Sodium Chloride Flush 3 ML SYRINGE IVFLUSH ×3 (09:49→23:03)
[2024-08-14] MEDS: Calcium Gluconate/NaCl,Iso-Osm 1 GM/50 ML PLAST..BAG IV ×2 (09:51→16:18)
[2024-08-14] MEDS: Magnesium Sulfate/D5W 1 GM/100 ML PIGGYBACK IV (09:52)
[2024-08-14] MEDS: Potassium Phosphate/NS 15 MMOL/250 ML PLAST..BAG 62.5 MMOL IV ×2 (09:52→16:23)
[2024-08-14 10:07] LABS: Glucose, Whole Blood 200 mg/dL (60-115)
[2024-08-14] MEDS: metroNIDAZOLE/NS 500 MG/100 ML PIGGYBACK 100 MG IV ×2 (11:06→23:03)
[2024-08-14 11:20] LABS: Glucose, Whole Blood 216 mg/dL (60-115)
[2024-08-14 12:04] LABS: Glucose, Whole Blood 211 mg/dL (60-115)
[2024-08-14 12:59] LABS: Glucose, Whole Blood 224 mg/dL (60-115)
[2024-08-14 13:02] LABS: Anion Gap 12 (12-20); Blood Urea Nitrogen 7 mg/dL (9-16); Calcium 8.2 mg/dL (8.4-10.2); Carbon Dioxide 23 mmol/L (22-29); Chloride 109 mmol/L (96-108); Creatinine Clr Calc Pharmacy 139.6; Estimated Glomerular Filt Rate > 60; Glucose Random 212 mg/dL (60-115); Magnesium 1.8 mg/dL (1.6-2.6); Phosphorus 2.5 mg/dL (2.7-4.5); Potassium 3.6 mmol/L (3.3-5.1); Sodium 140 mmol/L (135-145)
[2024-08-14] MEDS: LORazepam 2 MG/ML VIAL 0.5 MG IVPUSH ×2 (13:10→16:53)
[2024-08-14 14:23] LABS: Glucose, Whole Blood 143 mg/dL (60-115)
--- NOTE | 2024-08-14 15:00 | PC.NURSE ---
Sabi trin[place] 7a-3p - Patient remains on insulin drip. Goal to increase PO intake in order to get patient off insulin drip. Drip titrated per protocol and provider discretion. Patient c/o abd pain & continued N/V. One episode of Vomiting brown emesis again, medicated with PRN zofran with minimal effect. Dr Jackson made aware of persistent nausea/vomiting - ordered PRN ativan IV - given x1 with good effect, patient able to rest and nausea improved after administration. Patient medicated with IV toradol x1 for abd pain. See MAR for insulin titration & medical device sales. Electrolyte replacement completed per Provider order/MAR. Serial labs continued to be monitored and reported to provider. Handoff report given to Luz Elena BENTLEY at approx 3pm.
[2024-08-14 15:10] LABS: Glucose, Whole Blood 126 mg/dL (60-115)
--- NOTE | 2024-08-14 15:26 | MHC.CM.PN ---
Pt required insulin continuous infusion: remains in ICU: has been referred to financial services for assistance with payor. Has info to obtain PCP and has a working cellphone. CM to follow for d/c planning needs
[2024-08-14 16:03] LABS: Glucose, Whole Blood 102 mg/dL (60-115)
[2024-08-14 16:28] LABS: Anion Gap 9 (12-20); Blood Urea Nitrogen 8 mg/dL (9-16); Calcium 8.5 mg/dL (8.4-10.2); Carbon Dioxide 25 mmol/L (22-29); Chloride 112 mmol/L (96-108); Creatinine Clr Calc Pharmacy 141.2; Estimated Glomerular Filt Rate > 60; Glucose Random 104 mg/dL (60-115); Potassium 3.4 mmol/L (3.3-5.1); Sodium 143 mmol/L (135-145)
[2024-08-14 17:18] LABS: Glucose, Whole Blood 79 mg/dL (60-115)
[2024-08-14 18:13] LABS: Glucose, Whole Blood 94 mg/dL (60-115)
--- NOTE | 2024-08-14 18:37 | PC.NURSE ---
Assumed care of pt at 1500. Pt stated his abdomen felt better and MD requested for pt to try to eat something. Pt was given jello and became nauseous. He received zofran and ativan with good effect. Spoke to Dr Jackson regarding insulin drip and POC results. Insulin was shut off for a POC of 79. Md aware that pt was not able to eat. Next POC 94. No vomitting. Pt restful at present.
[2024-08-14 19:20] LABS: Glucose, Whole Blood 103 mg/dL (60-115)
[2024-08-14] MEDS: Insulin Glargine,Hum.rec.anlog 100 UNIT/ML 10 ML VIAL 22 UNIT SUBCUT (19:58)
[2024-08-14] MEDS: Enoxaparin Sodium 40 MG/0.4 ML SYRINGE SUBCUT (20:52)
[2024-08-14 21:26] LABS: Glucose, Whole Blood 132 mg/dL (60-115)
[2024-08-14 23:40] LABS: Glucose, Whole Blood 159 mg/dL (60-115)
[2024-08-15] VITALS (14 sets, daily range): BP systolic 102–141; BP diastolic 55–78; PULSE 41–96; RESP 12–21; TEMP 36.9–37.3; O2SAT 95–100; BMI 23.3
[2024-08-15] MEDS: Ketorolac Tromethamine 15 MG/ML VIAL IVPUSH ×2 (02:11→08:16)
--- NOTE | 2024-08-15 06:00 | ECG_ITS ---
Test Reason : QTc Monitoring Blood Pressure : */* mmHG Vent. Rate : 41 BPM Atrial Rate : 41 BPM P-R Int : 134 ms QRS Dur : 96 ms QT Int : 518 ms P-R-T Axes : -12 69 50 degrees QTcB Int : 427 ms Marked sinus bradycardia Abnormal ECG When compared with ECG of 14-Aug-2024 03:12, No significant change was found Referred By: Nataliya Jackson Electronically Signed By: HELADIO ROWAN
[2024-08-15 06:01] LABS: MANUAL DIFF FLAG NO
[2024-08-15 06:03] LABS: Hematocrit 36.8 % (42.0-52.0); Hemoglobin 12.6 g/dl (14.0-18.0); White Blood Count 6.1 X10*3/uL (4.8-10.8)
[2024-08-15 06:04] LABS: Basophils Percent Auto 0.7 % (0-2); Eosinophils Percent Auto 0.3 % (0-4); Imm Gran Abs Auto 0.02 X10*3/uL (0.00-0.03); Imm Gran Pct Auto 0.3 % (0.0-0.4); Lymphocytes Absolute Auto 2.2 X10*3/uL (1.2-4.9); Lymphocytes Percent Auto 36.1 % (20-40); Mean Corpuscular HGB Conc 34.2 g/dl (31.0-36.0); Mean Corpuscular Hemoglobin 28.6 pg (27.0-33.0); Mean Corpuscular Volume 83.6 fL (80.0-98.0); Mean Platelet Volume 10.6 fL (9.4-12.4); Monocytes Absolute Auto 0.9 X10*3/uL (0.1-1.2); Monocytes Percent Auto 14.1 % (2-11); Neutrophils Percent Auto 48.5 % (45-73); Platelet Count 364 X10*3/uL (160-400); Red Cell Distribution Width 12.9 % (11.0-16.0)
[2024-08-15] MEDS: Pantoprazole Sodium 40 MG/10 ML VIAL IVPUSH (06:09)
--- NOTE | 2024-08-15 06:25 | PC.NURSE ---
Assumed care at 1900- pt alert and oriented, insulin gtt previously d/c. Lantus 22 units subq ordered and administered - see emar. Pt tolerating po fluids. Pt sinus christian throughout shift - HR sustaining 40s, dropping to 30s at times. [employer]ULT [employer] Kalyi aware. Pt c/o abd pain - prn toradol given per emar. Pt c/o nausea?- prn zofran given per emar. Safety measures in place. Plan of care ongoing.?
[2024-08-15 06:29] LABS: Anion Gap 11 (12-20); Blood Urea Nitrogen 6 mg/dL (9-16); Calcium 8.2 mg/dL (8.4-10.2); Carbon Dioxide 24 mmol/L (22-29); Chloride 110 mmol/L (96-108); Creatinine Clr Calc Pharmacy 149.8; Estimated Glomerular Filt Rate > 60; Glucose Random 139 mg/dL (60-115); Magnesium 1.7 mg/dL (1.6-2.6); Potassium 3.4 mmol/L (3.3-5.1); Sodium 142 mmol/L (135-145)
[2024-08-15 07:29] LABS: Glucose, Whole Blood 141 mg/dL (60-115)
[2024-08-15] MEDS: Insulin Glargine,Hum.rec.anlog 100 UNIT/ML 10 ML VIAL 22 UNIT SUBCUT (07:59)
[2024-08-15] MEDS: 0.9 % Sodium Chloride Flush 3 ML SYRINGE IVFLUSH ×3 (07:59→23:33)
--- NOTE | 2024-08-15 08:53 | P.PNCC_ITS ---
Subjective Subjective Date of Service: 08/15/24 Interval History: no significant overnight events; improvement of nausea Critical Care Time (minutes): 0 Physical Exam 2 Vital Signs: Vital Signs: Last Vital Signs Temp 98.9 F 08/15/24 08:00 Pulse 43 L 08/15/24 08:00 Resp 18 08/15/24 08:00 BP 102/55 L 08/15/24 08:00 Pulse Ox 100 08/15/24 08:00 O2 Del Method Room Air 08/15/24 08:00 FiO2 30 08/14/24 19:00 BMI result Body Mass Index 23.3 Const: General: cooperative, healthy appearing, comfortable, no acute distress, well developed, alert, awake and Physically active O rientation/consciousness: patient oriented x3 HEENT: Head: Yes normal to inspection, Yes normocephalic and Yes atraumatic Eyes: General: appearance normal, both eyes and all related structures Neck: Neck: Yes normal visual inspection, Yes full ROM, Yes no meningeal signs, Yes trachea midline and Yes supple Chest: Chest palpation & inspection: normal inspection of the chest Resp: Other: no appreciable rales, rhonchi, wheezing Effort & Inspection: normal respiratory effort Cardio: Rate: bradycardic Rhythm: regular rhythm GI: Other: no appreciable tenderness to palpation throughout Inspection: Yes normal to inspection, No Abdominal wall edema and No distended Palpation (GI): Soft to palpation, not firm, nontender, no guarding and not rigid Skin: General skin exam: no rashes or lesions noted Neuro: General: patient oriented x3, tone normal, moves all extremities, no meningeal signs and no focal motor deficits Extrem: General: Yes normal to inspection, Yes full ROM, Yes capillary refill normal and Yes no clubbing, cyanosis or edema Psych: Appearance: grossly normal Objective Data Labs 08/15/24 05:30 08/15/24 05:30 Labs: Laboratory Results - last 24 hr 08/14/24 08/14/24 08/14/24 08:53 10:03 11:06 WBC RBC Hgb Hct MCV MCH MCHC RDW Plt Count MPV Immature Gran % (Auto) Neut % (Auto) Lymph % (Auto) [place] % (Auto) Eos % (Auto) Baso % (Auto) Lymph # (Auto) [place] # (Auto) Eos # (Auto) Baso # (Auto) Abs Immat Gran (auto) Absolute Neuts (auto) Absolute Nucleated RBC Nucleated RBC % (auto) Sodium Potassium Chloride Carbon Dioxide Anion Gap BUN Creatinine Estim Creat Clear Calc Estimated GFR POC Glucose 172 H 200 H 216 H Random Glucose Calcium Phosphorus Magnesium 08/14/24 08/14/24 08/14/24 12:00 12:40 12:55 WBC RBC Hgb Hct MCV MCH MCHC RDW Plt Count MPV Immature Gran % (Auto) Neut % (Auto) Lymph % (Auto) [place] % (Auto) Eos % (Auto) Baso % (Auto) Lymph # (Auto) [place] # (Auto) Eos # (Auto) Baso # (Auto) Abs Immat Gran (auto) Absolute Neuts (auto) Absolute Nucleated RBC Nucleated RBC % (auto) Sodium 140 Potassium 3.6 Chloride 109 H Carbon Dioxide 23 Anion Gap 12 BUN 7 L Creatinine 0.88 Estim Creat Clear Calc 139.6 Estimated GFR > 60 POC Glucose 211 H 224 H Random Glucose 212 H Calcium 8.2 L Phosphorus 2.5 L Magnesium 1.8 08/14/24 08/14/24 08/14/24 14:16 15:06 16:00 WBC RBC Hgb Hct MCV MCH MCHC RDW Plt Count MPV Immature Gran % (Auto) Neut % (Auto) Lymph % (Auto) [place] % (Auto) Eos % (Auto) Baso % (Auto) Lymph # (Auto) [place] # (Auto) Eos # (Auto) Baso # (Auto) Abs Immat Gran (auto) Absolute Neuts (auto) Absolute Nucleated RBC Nucleated RBC % (auto) Sodium Potassium Chloride Carbon Dioxide Anion Gap BUN Creatinine Estim Creat Clear Calc Estimated GFR POC Glucose 143 H 126 H 102 Random Glucose Calcium Phosphorus Magnesium 08/14/24 08/14/24 08/14/24 16:03 17:15 18:08 WBC RBC Hgb Hct MCV MCH MCHC RDW Plt Count MPV Immature Gran % (Auto) Neut % (Auto) Lymph % (Auto) [place] % (Auto) Eos % (Auto) Baso % (Auto) Lymph # (Auto) [place] # (Auto) Eos # (Auto) Baso # (Auto) Abs Immat Gran (auto) Absolute Neuts (auto) Absolute Nucleated RBC Nucleated RBC % (auto) Sodium 143 Potassium 3.4 Chloride 112 H Carbon Dioxide 25 Anion Gap 9 L BUN 8 L Creatinine 0.87 Estim Creat Clear Calc 141.2 Estimated GFR > 60 POC Glucose 79 94 Random Glucose 104 Calcium 8.5 Phosphorus Magnesium 08/14/24 08/14/24 08/14/24 19:16 21:22 23:32 WBC RBC Hgb Hct MCV MCH MCHC RDW Plt Count MPV Immature Gran % (Auto) Neut % (Auto) Lymph % (Auto) [place] % (Auto) Eos % (Auto) Baso % (Auto) Lymph # (Auto) [place] # (Auto) Eos # (Auto) Baso # (Auto) Abs Immat Gran (auto) Absolute Neuts (auto) Absolute Nucleated RBC Nucleated RBC % (auto) Sodium Potassium Chloride Carbon Dioxide Anion Gap BUN Creatinine Estim Creat Clear Calc Estimated GFR POC Glucose 103 132 H 159 H Random Glucose Calcium Phosphorus Magnesium 08/15/24 08/15/24 05:30 07:24 WBC 6.1 RBC 4.40 L Hgb 12.6 L Hct 36.8 L MCV 83.6 MCH 28.6 MCHC 34.2 RDW 12.9 Plt Count 364 MPV 10.6 Immature Gran % (Auto) 0.3 Neut % (Auto) 48.5 Lymph % (Auto) 36.1 Mchenry % (Auto) 14.1 H Eos % (Auto) 0.3 Baso % (Auto) 0.7 Lymph # (Auto) 2.2 [place]henry # (Auto) 0.9 Eos # (Auto) 0.0 Baso # (Auto) 0.0 Abs Immat Gran (auto) 0.02 Absolute Neuts (auto) 3.0 Absolute Nucleated RBC 0.000 Nucleated RBC % (auto) 0.0 Sodium 142 Potassium 3.4 Chloride 110 H Carbon Dioxide 24 Anion Gap 11 L BUN 6 L Creatinine 0.82 Estim Creat Clear Calc 149.8 Estimated GFR > 60 POC Glucose 141 H Random Glucose 139 H Calcium 8.2 L Phosphorus 3.0 Magnesium 1.7 Progress Note: A&P Assessment and plan (1) Intractable vomiting: Status: Acute (2) Diabetic ketoacidosis: Status: Acute (3) Influenza A: Status: Acute Plan Patient is a 24 Y M w/ type I diabetes mellitus, c/b prior DKA, presenting initially to emergency department on 08/12 w/ nausea/vomiting/diarrhea, found to have influenza as well as CT A/P demonstrating colitis, initially admitted to medicine, though developed DKA N: no acute issues CV: no acute issues; appreciable sinus bradycardia; to monitor QTc interval in setting of anti-nausea medications, antibiotics R: no acute issues GI: n/v d/t influenza, marijuana use, improving; diabetic diet : no acute issues H: no acute issues; chemical DVT prophylaxis w/ enoxaparin SQ ID: influenza on oseltamivir; colitis on ciprofloxacin/metronidazole E: type I diabetes melltius c/b DKA, s/p DKA protocol P: no acute issues Quality Stroke Does the patient have a stroke diagnosis?: No VTE Prior VTE?: No VTE Risk Level:: Medical - moderate - high VTE Device Contraindication: N/A - Device Ordered VTE Drug Contraindication: N/A - Med Ordered
[2024-08-15] MEDS: Calcium Gluconate/NaCl,Iso-Osm 1 GM/50 ML PLAST..BAG IV (08:59)
[2024-08-15] MEDS: Ciprofloxacin Lactate/D5W 400 MG/200 ML PIGGYBACK 200 MG IV ×2 (08:59→21:56)
[2024-08-15] MEDS: Oseltamivir Phosphate 75 MG CAPSULE PO ×2 (08:59→21:56)
[2024-08-15] MEDS: ondansetron HCL 4 MG/2 ML VIAL IVPUSH (09:48)
[2024-08-15] MEDS: metroNIDAZOLE/NS 500 MG/100 ML PIGGYBACK 100 MG IV ×2 (10:54→23:31)
[2024-08-15 11:22] LABS: Glucose, Whole Blood 156 mg/dL (60-115)
[2024-08-15 16:39] LABS: Glucose, Whole Blood 137 mg/dL (60-115)
[2024-08-15 20:43] LABS: Glucose, Whole Blood 174 mg/dL (60-115)
[2024-08-15] MEDS: Insulin Lispro 100 UNIT/ML 3 ML VIAL SUBCUT (21:55)
[2024-08-16] VITALS: BP 130/67; PULSE 53; RESP 20; TEMP 36.4; O2SAT 98
[2024-08-16 03:45] VITALS: BP 119/66; PULSE 45; RESP 20; TEMP 36.3; O2SAT 98
[2024-08-16 06:00] VITALS: BMI 23.3
[2024-08-16] MEDS: Pantoprazole Sodium 40 MG/10 ML VIAL IVPUSH (06:58)
[2024-08-16 07:09] LABS: Basophils Absolute Auto 0.1 X10*3/uL (0.0-0.2); Eosinophils Absolute Auto 0.1 X10*3/uL (0.0-0.4); Eosinophils Percent Auto 1.2 % (0-4); Hemoglobin 13.1 g/dl (14.0-18.0); Imm Gran Abs Auto 0.01 X10*3/uL (0.00-0.03); Imm Gran Pct Auto 0.2 % (0.0-0.4); Lymphocytes Absolute Auto 2.6 X10*3/uL (1.2-4.9); Lymphocytes Percent Auto 44.8 % (20-40); MANUAL DIFF FLAG SCAN; Mean Corpuscular HGB Conc 34.5 g/dl (31.0-36.0); Mean Corpuscular Hemoglobin 28.8 pg (27.0-33.0); Mean Corpuscular Volume 83.5 fL (80.0-98.0); Mean Platelet Volume 10.5 fL (9.4-12.4); Monocytes Absolute Auto 0.6 X10*3/uL (0.1-1.2); Monocytes Percent Auto 10.7 % (2-11); Neutrophils Absolute Auto 2.5 x10*3/uL (2.0-8.3); Neutrophils Percent Auto 42.1 % (45-73); Platelet Count 344 X10*3/uL (160-400); Red Blood Count 4.55 X10*6/uL (4.60-5.80); Red Cell Distribution Width 12.8 % (11.0-16.0); SCAN SMEAR FLAG 1; White Blood Count 5.8 X10*3/uL (4.8-10.8)
[2024-08-16 07:32] LABS: Anion Gap 11 (12-20); Blood Urea Nitrogen 7 mg/dL (9-16); Calcium 8.6 mg/dL (8.4-10.2); Carbon Dioxide 27 mmol/L (22-29); Chloride 107 mmol/L (96-108); Creatinine Clr Calc Pharmacy 149.8; Estimated Glomerular Filt Rate > 60; Glucose Random 155 mg/dL (60-115); Magnesium 1.9 mg/dL (1.6-2.6); Phosphorus 3.5 mg/dL (2.7-4.5); Potassium 3.8 mmol/L (3.3-5.1); Sodium 141 mmol/L (135-145)
[2024-08-16 07:32] LABS: Glucose, Whole Blood 133 mg/dL (60-115)
[2024-08-16 07:38] VITALS: BP 104/58; PULSE 42; RESP 18; TEMP 36.7; O2SAT 97
[2024-08-16 07:50] LABS: SLIDE REVIEW VERIFIED
[2024-08-16] MEDS: Oseltamivir Phosphate 75 MG CAPSULE PO (09:16)
[2024-08-16] MEDS: Insulin Glargine,Hum.rec.anlog 100 UNIT/ML 10 ML VIAL 25 UNIT SUBCUT (09:16)
[2024-08-16] MEDS: Ciprofloxacin Lactate/D5W 400 MG/200 ML PIGGYBACK 200 MG IV (09:17)
--- NOTE | 2024-08-16 11:06 | P.DS_ITS ---
DS: Providers Provider Date of Service: 08/16/24 Date of admission: 08/12/24 21:41 Date of discharge: 08/16/24 Primary care physician: Ike Physician DS: Diagnosis Discharge Diagnosis (1) Intractable vomiting: Status: Acute (2) Diabetic ketoacidosis: Status: Acute (3) Influenza A: Status: Acute (4) Starvation ketoacidosis: Status: Acute (5) Colitis: Status: Acute (6) Hyperglycemia: Status: Acute DS: Summary Hospital Course Hospital Course: Admission note HPI Patient is a 24-year-old male with a past medical history significant for insulin-dependent diabetes, history DKA as a child, diabetic neuropathy, who presented to the ED due to generalized abdominal pain, intractable vomiting, watery diarrhea fever, cough x2 days. He reports he has been unable to tolerate anything by mouth since yesterday. He reports this feels similar to his history of DKA. Initially reported watery diarrhea to the ED provider but denies this with me. He also reports that he uses marijuana daily. Hospital course The patient was admitted for treatment of DKA and influenza A. CT scan of abdomen was consistent with likely Colitis. Treated in ICU with insulin drip, IV fluids, Tamiflu and IV antibiotics with good response over the course of hospital stay as anion gap closed and he was able to tolerate PO with resolution of pain, diarrhea and vomiting. cultures remained negative. To be discharged to finish 5 days Tamiflu and 7 days of Ciprofloxacin and Flagyl. To be discharged home with PRN reglan as well for nausea. Discharge plan Start home insulin as prescribed Continue Tamiflu Continue Antibiotics for colitis Tylenol for pain Time Attestation Discharge Coordination Time (in mins): 36 Quality: Safe Use of Opioids Does Pt have an Active Cancer Diagnosis on the Problem List?: No Quality: Stroke Does the patient have a stroke diagnosis?: No Physical Exam Vital Signs: Vital Signs: Last Vital Signs Temp 98.0 F 08/16/24 07:38 Pulse 42 L 08/16/24 07:38 Resp 18 08/16/24 07:38 BP 104/58 L 08/16/24 07:38 Pulse Ox 97 08/16/24 07:38 O2 Del Method Room Air 08/16/24 07:38 FiO2 30 08/14/24 19:00 BMI result Body Mass Index 23.3 Const: Other: Constitutional : interactive, not in distress Cardiovascular : no JVP, no lower extremity edema Respiratory : bilateral chest movement, not in resp distress Gastrointestinal: soft, lax, Non tender Skin : Warm, Dry Neurological : Alert & oriented , No focal deficit DS: Data Data Completed and Pending Labs on day of discharge: Laboratory Results - last 24 hr 08/15/24 08/15/24 08/15/24 11:13 16:35 20:38 WBC RBC Hgb Hct MCV MCH MCHC RDW Plt Count MPV Immature Gran % (Auto) Neut % (Auto) Lymph % (Auto) [place] % (Auto) Eos % (Auto) Baso % (Auto) Lymph # (Auto) [place] # (Auto) Eos # (Auto) Baso # (Auto) Abs Immat Gran (auto) Absolute Neuts (auto) Absolute Nucleated RBC Nucleated RBC % (auto) Smear Tech's Comments Sodium Potassium Chloride Carbon Dioxide Anion Gap BUN Creatinine Estim Creat Clear Calc Estimated GFR POC Glucose 156 H 137 H 174 H Random Glucose Calcium Phosphorus Magnesium 08/16/24 08/16/24 06:55 07:28 WBC 5.8 RBC 4.55 L Hgb 13.1 L Hct 38.0 L MCV 83.5 MCH 28.8 MCHC 34.5 RDW 12.8 Plt Count 344 MPV 10.5 Immature Gran % (Auto) 0.2 Neut % (Auto) 42.1 L Lymph % (Auto) 44.8 H [place] % (Auto) 10.7 Eos % (Auto) 1.2 Baso % (Auto) 1.0 Lymph # (Auto) 2.6 [place] # (Auto) 0.6 Eos # (Auto) 0.1 Baso # (Auto) 0.1 Abs Immat Gran (auto) 0.01 Absolute Neuts (auto) 2.5 Absolute Nucleated RBC 0.000 Nucleated RBC % (auto) 0.0 Smear Tech's Comments VERIFIED Sodium 141 Potassium 3.8 Chloride 107 Carbon Dioxide 27 Anion Gap 11 L BUN 7 L Creatinine 0.82 Estim Creat Clear Calc 149.8 Estimated GFR > 60 POC Glucose 133 H Random Glucose 155 H Calcium 8.6 Phosphorus 3.[address] scan - abdomen: Radiologist's impression: Mild rectosigmoid wall thickening may be incidental. Mild colitis /proctitis is technically a possibility. Trace amount of fluid in the pelvis. Other findings as above. Discharge Plan Discharge Anticipated Discharge Date/Time: 08/16/24 11:02 Patient Disposition: Home, Self-Care Discharge Diagnosis: Influenza A Colitis DKA Referrals: Physician,None [Primary Care Provider] - 1 Week Discharge Medications: New nicotine 14 mg/24 hr Patch 24 Hour 14 mg transdermal DAILY Qty: 30 0RF oseltamivir [Tamiflu] 75 mg Capsule 75 mg PO Q12H Qty: 2 0RF ciprofloxacin HCl 500 mg tablet 500 mg PO Q12H Qty: 6 0RF metronidazole 500 mg tablet 500 mg PO BID Qty: 6 0RF metoclopramide HCl 5 mg tablet 5 mg PO Q8H PRN (Reason: nausea and vomiting) Qty: 14 0RF Continued gabapentin 600 mg Tablet 600 mg PO TID PRN (Reason: Pain) ibuprofen 200 mg Tablet 400 mg PO Q6H PRN (Reason: Pain) omeprazole 20 mg Capsule,Delayed Release(Dr/Ec) 20 mg PO DAILY@0630 calcium carbonate 500 mg calcium (1,250 mg) Tablet,Chewable 500 mg PO DAILY PRN (Reason: Heartburn) insulin degludec [Tresiba FlexTouch U-100] 100 unit/mL (3 mL) Insulin Pen 35 unit SUBCUT BEDTIME Fiasp FlexTouch U-100 Insulin 100 unit/mL (3 mL) Insulin Pen 5 - 15 unit SUBCUT TID PRN (Reason: BS >250) Excedrin Migraine 250-250-65 mg Tablet 2 tab PO Q6H PRN (Reason: Headache) Discharge Orders: Discharge Order (Routine); Ordered 08/16/24 Ordered By: Denzel Mota Diet: Advance to usual diet Activity on Discharge: As tolerated Stand Alone Forms: Patient Portal Discharge page Print Language: Telugu Care Plan Goals: Start home insulin as prescribed Continue Tamiflu Continue Antibiotics for colitis Tylenol for pain Health Concerns: Influenza, Diabetic ketoacidosis , colitis Plan of Treatment: Tamiflu Antibiotics Assessment: as above
--- NOTE | 2024-08-16 11:13 | MHC.CM.PN ---
Pt is medically cleared for discharge home self-care, pt has arranged his own transport home today.
== END 2024-08-16 11:11 | disposition home or self-care (01) | DRG 420 ==
LOC: HO.ED 21:36 → HO.EDOVER 08-13 06:26 → HO.ICU 08-13 08:14 → HO.EDOVER 08-13 14:26 → HO.IMC 08-15 12:44
PROVIDERS: Internal Medicine Critical Care Medicine; Nurse Practitioner Family; Physician Assistant Medical; Admitting Provider Student in an Organized Health Care Education/Training Program; Emergency Provider Emergency Medicine; Visit Provider Student in an Organized Health Care Education/Training Program
DX: E10.10 Type 1 diabetes mellitus with ketoacidosis without coma (principal); E10.40 Type 1 diabetes mellitus with diabetic neuropathy, unspecified; J10.2 Influenza due to other identified influenza virus with gastrointestinal manifestations; Z79.899 Other long term (current) drug therapy
CPT/HCPCS: 0241U; 36415; 74176; 80048; 80076; 81003; 82010; 82803; 82947; 83605; 83735; 84100; 84484; 85025; 87651; 93005; 99285; J0613; J0744; J1650; J1836; J1885; J2060; J2405; J2470; J2765; J3475; J7120

== ENCOUNTER → 2024-08-12 18:10 | Outpatient (BNV) | payer SELFPAY | PROVIDERS: Admitting Provider Student in an Organized Health Care Education/Training Program; Emergency Provider Emergency Medicine; Visit Provider Internal Medicine | DX: R00.1 Bradycardia, unspecified (principal); R53.1 Weakness; R94.31 Abnormal electrocardiogram [ECG] [EKG] | CPT/HCPCS: 93010 ==

== ENCOUNTER → 2024-08-12 18:33 | Outpatient (BNV) | payer SELFPAY | PROVIDERS: Emergency Provider Emergency Medicine; Visit Provider Radiology Diagnostic Radiology | DX: K52.9 Noninfective gastroenteritis and colitis, unspecified (principal); E87.29 Other acidosis | CPT/HCPCS: 74176 ==

== ENCOUNTER 2024-08-12 21:41 | Outpatient (BNV) | payer MEDICAID, SELFPAY | END 2024-08-15 06:00 | PROVIDERS: Admitting Provider Student in an Organized Health Care Education/Training Program; Emergency Provider Emergency Medicine; Visit Provider Internal Medicine | DX: R00.1 Bradycardia, unspecified (principal); R94.31 Abnormal electrocardiogram [ECG] [EKG] | CPT/HCPCS: 93010 ==

== ENCOUNTER 2024-08-12 21:41 | Outpatient (BNV) | payer MEDICAID, SELFPAY | END 2024-08-14 06:00 | PROVIDERS: Admitting Provider Student in an Organized Health Care Education/Training Program; Emergency Provider Emergency Medicine; Visit Provider Internal Medicine | DX: R00.1 Bradycardia, unspecified (principal) | CPT/HCPCS: 93010 ==

== ENCOUNTER → 2024-08-12 21:41 | Outpatient (BNV) | payer MEDICAID, SELFPAY | PROVIDERS: Admitting Provider Student in an Organized Health Care Education/Training Program; Emergency Provider Emergency Medicine; Visit Provider Physician Assistant | DX: R11.10 Vomiting, unspecified (principal); J10.1 Influenza due to other identified influenza virus with other respiratory manifestations; K52.9 Noninfective gastroenteritis and colitis, unspecified; E11.65 Type 2 diabetes mellitus with hyperglycemia; T73.0XXA Starvation, initial encounter; E87.29 Other acidosis | CPT/HCPCS: 99223; 99239; 99499 ==

== ENCOUNTER → 2024-08-12 21:41 | Outpatient (BNV) | payer MEDICAID, SELFPAY | PROVIDERS: Admitting Provider Student in an Organized Health Care Education/Training Program; Emergency Provider Emergency Medicine; Visit Provider Internal Medicine Critical Care Medicine | DX: R11.10 Vomiting, unspecified (principal); E11.10 Type 2 diabetes mellitus with ketoacidosis without coma; J10.1 Influenza due to other identified influenza virus with other respiratory manifestations | CPT/HCPCS: 99223 ==

== ENCOUNTER 2025-04-22 13:56 | Outpatient (AMB) | payer MEDICAID, SELFPAY ==
--- NOTE | 2025-04-22 14:15 | MHC.PC.OV ---
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: No Accompanied by: girlfriend Allergies No Known Allergies Allergy (Verified 04/22/25 14:45) Medication List - Last Reconciled 04/22/25 by Renae Gabriel PA-C [id number]-iekyzhmzsmwko-yqekwyzz 250-250-65 mg (Excedrin Migraine) 2 tabs PO Q6H PRN insulin aspart (niacinamide) 100 unit/mL (3 mL) (Fiasp FlexTouch U-100 Insulin) 5 - 15 units subcut TID PRN insulin degludec (Tresiba FlexTouch U-100 insulin) 35 units subcut BEDTIME Tobacco use date assessed: 04/22/25 Dental Screening Dental Screen Date: 04/22/25 Did you have a dental visit in the last 12 months?: No Did you have a dental problem in the last 6 months where you did not have access to dental care?: No HPI Joel NICOLAS New patient HPI Details The patient is a 24-year-old male presenting for an annual physical exam as a new patient. His previous primary care provider was in [place]. The patient has a history of type 1 diabetes mellitus. His last HbA1c in January was [id number], and his current A1c is 7.4. He reports his current insulin regimen includes Tresiba 38 units at bedtime and Aspart 5-10 units per meal. He reports using a Dexcom G7 in the past but is currently monitoring with a fingerstick meter. He also has a history of diabetic neuropathy and neuropathy from sciatica affecting one leg. The patient has a psychiatric history of anxiety, depression, ADHD, and bipolar I disorder. He states he has been off his SSRI medication for a while as he ran out of refills. He denies suicidal ideation. He complains of a painful lump on the heel of his left foot which has been present for about two months. Past surgical history is significant for an appendectomy. Family history is notable for an uncle who had a stroke, but he denies any family history of cancer. He has not had his eyes or teeth checked in a while. Social History - He recently moved to [place] from [place]. - He lives with his girlfriend. - He has no children. [facility] Medical History (Updated 04/22/25 @ 16:48 by Renae Gabriel PA-C) Preventative health care Sciatica Depression Bipolar 1 disorder ADHD Annual physical exam Pain in left foot Diabetic neuropathy Insulin dependent type 1 diabetes mellitus Surgical History History of appendectomy Family History Father No problems noted. Mother No problems noted. Social History Household Members: Significant Other Housing: House Alcohol intake: current Alcohol intake frequency: does not drink Patient Tobacco Use Status: Current someday Tobacco user e-Cigarette/Vaping Use: Currently Using Substance Use Type: Marijuana service: No Current occupational status: employed Cognitive needs: No Hearing needs: No Vision needs: Yes (rx glasses) Questionnaire PHQ-9 Over the last 2 weeks, how often have you been bothered by any of the following problems? 1. Little interest or pleasure in doing things: several days 2. Feeling down, depressed, or hopeless: several days 3. Trouble falling or staying asleep, or sleeping too much: nearly every day 4. Feeling tired or having little energy: nearly every day 5. Poor appetite or overeating: several days 6. Feeling bad about yourself - or that you are a failure or have let yourself or your family down: several days 7. Trouble concentrating on things, such as reading the newspaper or watching television: nearly every day 8. Moving or speaking so slowly that other people could have noticed. Or the opposite - being so fidgety or restless that you have been moving around a lot more than usual: not at all 9. Thoughts that you would be better off or of hurting yourself in some way: not at all Total score: 13 Depression Screening Interpretation: Positive Depression Screening Follow-up: Existing condition, In treatment and Other (refill needed ) Depression Screening Done: Yes 40459 - PHQ-9 Billing: Yes Source: Developed by Drs. Rich Ocampo, Raissa Prince, Charlie Singh and colleagues, with an educational edward from [employer]. Thrive Questionnaire Date Thrive assessed: 04/22/25 I am a: Patient What is your living situation today?: I have a steady place to live Within the past 12 months, did the food you bought not last and you didn't have the money to get more?: Never true Within the past 12 months, did you worry whether your food would run out before you got money to buy more?: Never true Do you have trouble paying for medicines?: No Do you have trouble getting transportation to medical appointments?: No Do you have trouble paying your heating and electricity bill?: No Do you have trouble taking care of your child, family member or friend?: No Do you have trouble with day-to-day activities such as bathing, preparing meals, shopping, managing finances, etc.?: No Are you currently unemployed and looking for a job?: No Are you interested in more education?: No Please select the resources that you would like help with: None THRIVE Score: 0 AUDIT C Alcohol Use Questionnaire (AUDIT-C) 1. How often do you have a drink containing alcohol?: Never 3. How often do you have six or more drinks on one occasion?: Never Total Score: 0 Score Reviewed/Action Taken: No COLIN-7 AMB Questionnaire COLIN-7 Date COLIN - 7 assessed: 04/22/25 Feeling nervous, anxious, or on edge: 1 = Several days Not being able to stop or control worryin = Several days Worrying too much about different things: 1 = Several days Trouble relaxin = Several days Being so restless that it is hard to sit still: 3 = Nearly every day Becoming easily annoyed or irritable: 3 = Nearly every day Feeling afraid as if something awful might happen: 0 = Not at all Total COLIN-7 score (0-4 normal; 5-9 mild; 10-14 moderate; 15-21 severe): 10 Source: Developed by Drs. Rich Ocampo, Raissa Prince, Charlie Singh and colleagues, with an educational edward from [employer]. COLIN-7 Assessment Billing COLIN-7 Assessment Tool: COLIN-7 Assessment 31011 Review of Systems Const Details: - Psychiatric: Reports anxiety and depression since being off medication. - Denies suicidal thoughts. - Constitutional: Denies unintentional weight loss. - Skin: Reports a lump on the heel of his foot for two months. - Denies other weird skin lesions. - Cardiovascular: Denies dizziness, chest pain, and shortness of breath when going up stairs or lying flat. - Gastrointestinal: Denies black or bloody stools. - Musculoskeletal: Reports neuropathy in one leg described as one giant cramp most of the time. - Denies leg swelling or calf tenderness. All systems reviewed & are unremarkable except as noted in HPI and below Physical exam (Primary Care) Vital Signs: Last Vital Signs Temp 97.7 F 04/22/25 14:16 Pulse 66 04/22/25 14:16 Resp 14 04/22/25 14:16 BP 118/68 04/22/25 14:16 Pulse Ox 96 04/22/25 14:16 Oxygen Delivery Method Room Air 04/22/25 14:16 Care Plan Goal for BP management: <140/90 at Goal BMI result Body Mass Index 23.3 Normal BMI Tobacco/Smoking Status: Tobacco use Status Tobacco use date assessed 04/22/25 04/22/25 14:24 Patient Tobacco Use Status Current someday Tobacco 04/22/25 14:24 e-Cigarette/Vaping Use Currently Using 04/22/25 14:24 PHQ-9: PHQ-9 Score PHQ-9: Total score 13 04/22/25 14:48 Depression Screening Interpretation: Positive Depression Screening Follow-up: Existing condition, In treatment and Other (refill needed ) Thrive Assessment: Date of Thrive Assessment Date Thrive assessed 04/22/25 04/22/25 14:24 Const Other: Appearance: Alert. Oriented X3. No acute distress. Head: Normal external exam. Normocephalic. Atraumatic. Eyes: Pupils are equal, round, and reactive to light. Extraocular movements intact. Conjunctiva and sclera normal. Eyelids normal. Ears: External auditory canal normal. Tympanic membranes normal. Throat: Pharynx normal. Uvula midline. Moist mucous membranes. Neck: Normal inspection. Neck supple. Full range of motion. No adenopathy. Thyroid Normal. No meningeal signs. No neck mass noted. Cardiovascular: Normal heart rate and rhythm. Heart sound normal. No murmurs noted. Pulses normal throughout. Respiratory: No respiratory distress. Painless inspiration. Breath sounds normal. No wheezes/rales/rhonchi noted. Chest nontender. No accessory muscle usage noted or decreased air movement noted. Abdomen: Soft and nontender. Bowel sounds normal in all 4 quadrants. No distention noted. No organomegaly noted. No visible injury noted. Back: No costovertebral angle tenderness. Full range of motion noted. Skin: Skin warm and dry. Normal skin color. Normal skin turgor. No rashes/lesions/lacerations noted. Extremities: No lower extremity edema. Extremities exhibit normal range of motion. Painful area to the medial plantar aspect of the left foot. No obvious deformities. No signs of infection. No foreign bodies. No erythema, streaking, induration, fluctuance noted at this time. Otherwise all other extremities exhibit normal range of motion and nontender other than his lower extremity neuropathy. Neuro: Oriented X 3. No motor deficit. No sensory deficit. Reflexes normal. Office Procedures Flu Questionnaire Does the patient have a severe egg allergy?: No Does the patient have severe life threatening allergies?: No Does the patient have a fever or illness today?: No Has the patient ever had Guillain-Isabella Syndrome?: No Has the patient ever had any past reaction to a flu shot?: No Results AMB Hemoglobin A1c AMB Hemoglobin A1c 7.4 % Last Edit by CAPRI Newman on 04/22/25 14:55 Immunizations Fluarix [id number] (PF) 45 mcg (15 mcg x 3)/0.5 mL IM syringe Performing Provider: Renae Gabriel PA-C [facility] Documented (not given) by: CAPRI Newman on 04/22/25 14:25 Reason Not Given: Patient Refused Results Reviewed Results Reviewed: - Labs: - A1c: 7.4% (today). - A1c: 64-[id number]-ltyhoedub (last January). Coding Level of Care Code New Pt Level 4 (69764) New Pt Prev Care 18-39yr(11991 Diagnoses Annual physical exam Z00.00 Insulin dependent type 1 diabetes mellitus E10.9 ADHD F90.9 Bipolar 1 disorder F31.9 Depression F32.A Diabetic neuropathy E11.40 Pain in left foot M79.672 Sciatica M54.30 Preventative health care Z00.00 Additional Codes PHQ-9 - 86172 - PHQ-9 Billing: Yes ([id number]) COLIN-7 Assessment Billing - COLIN-7 Assessment Tool: COLIN-7 Assessment 95131 ([id number]) Time Spent (min) 60 Assessment & Plan Assessment & Plan (1) Annual physical exam: Code(s): Z00.00 - Encounter for general adult medical examination without abnormal findings Category: Medical (2) Insulin dependent type 1 diabetes mellitus: Code(s): E10.9 - Type 1 diabetes mellitus without complications Category: Medical Plan: Today's A1c is 7.4%. Medication refills were provided for Tresiba 38 units nightly and insulin Aspart. Discussed potentially increasing Tresiba to 40 units and increasing mealtime insulin to 10 units instead of 5. A prescription for a Dexcom G7 sensor and transmitter was sent to the pharmacy to assess for insurance coverage. Referrals were placed for endocrinology, podiatry, and the patient was advised to see an bag machine tender and dentist for annual checks. Will follow up in 3 months for diabetes management. (3) ADHD: Code(s): F90.9 - Attention-deficit hyperactivity disorder, unspecified type Category: Medical Plan: The patient reports anxiety and depression due to being off his SSRI medication. A refill for his SSRI 100 mg once daily was sent to his pharmacy. Referrals to a psychiatrist and therapist have been placed. (4) Bipolar 1 disorder: Code(s): F31.9 - Bipolar disorder, unspecified Category: Medical Plan: The patient reports anxiety and depression due to being off his SSRI medication. A refill for his SSRI 100 mg once daily was sent to his pharmacy. Referrals to a psychiatrist and therapist have been placed. (5) Depression: Code(s): F32.A - Depression, unspecified Category: Medical Plan: The patient reports anxiety and depression due to being off his SSRI medication. A refill for his SSRI 100 mg once daily was sent to his pharmacy. Referrals to a psychiatrist and therapist have been placed. (6) Diabetic neuropathy: Code(s): E11.40 - Type 2 diabetes mellitus with diabetic neuropathy, unspecified Category: Medical Plan: The patient has neuropathy in one leg secondary to diabetes and sciatica. He has been off gabapentin for a couple of months; a refill was provided. The patient was advised to let the office know if the current dose is not sufficient. (7) Pain in left foot: Comment: plantar aspect Code(s): M79.672 - Pain in left foot Category: Medical Plan: The patient has a painful lump on the plantar aspect of his left foot for about 2 months. An X-ray of the left foot was ordered to rule out a foreign body. A referral to podiatry has been placed. (8) Sciatica: Code(s): M54.30 - Sciatica, unspecified side Category: Medical Plan: Condition is chronic and stable continue to monitor. (9) Preventative health care: Code(s): Z00.00 - Encounter for general adult medical examination without abnormal findings Category: Medical Plan: A comprehensive panel of fasting labs was ordered, including CBC, CMP, cholesterol, liver function, magnesium, vitamin B12, vitamin D, PSA, and thyroid panel to establish a baseline. A urinalysis with microalbumin was ordered to check for proteinuria. The patient was counseled on the importance of annual ophthalmology and dental exams due to his diabetes. Plan Plan Patient was informed and verbally consented to the use of an ambient scribe for clinic note documentation during this visit. 1. Type 1 Diabetes Mellitus Today's A1c is 7.4%. Medication refills were provided for Tresiba 38 units nightly and insulin Aspart. Discussed potentially increasing Tresiba to 40 units and increasing mealtime insulin to 10 units instead of 5. A prescription for a Dexcom G7 sensor and transmitter was sent to the pharmacy to assess for insurance coverage. Referrals were placed for endocrinology, podiatry, and the patient was advised to see an bag machine tender and dentist for annual checks. Will follow up in 3 months for diabetes management. 2. Mental Health Disorders (Bipolar I, Adhd, Anxiety, Depression) The patient reports anxiety and depression due to being off his SSRI medication. A refill for his SSRI 100 mg once daily was sent to his pharmacy. Referrals to a psychiatrist and therapist have been placed. 3. Lump On Left Foot The patient has a painful lump on the plantar aspect of his left foot for about 2 months. An X-ray of the left foot was ordered to rule out a foreign body. A referral to podiatry has been placed. 4. Diabetic Neuropathy The patient has neuropathy in one leg secondary to diabetes and sciatica. He has been off gabapentin for a couple of months; a refill was provided. The patient was advised to let the office know if the current dose is not sufficient. 5. Preventative Care A comprehensive panel of fasting labs was ordered, including CBC, CMP, cholesterol, liver function, magnesium, vitamin B12, vitamin D, PSA, and thyroid panel to establish a baseline. A urinalysis with microalbumin was ordered to check for proteinuria. The patient was counseled on the importance of annual ophthalmology and dental exams due to his diabetes. I discussed with the patient, who is new to the practice, the plan for his annual physical exam. I explained that we would be doing comprehensive baseline bloodwork and a urine test, for which he needs to be fasting. We reviewed his diabetes management, noting his A1c has improved to 7.4%. I provided refills for his insulins and a prescription for a Dexcom G7, advising that we will need to see if his insurance covers it. I also provided refills for his SSRI and gabapentin. I informed him that referrals would be placed to endocrinology, psychiatry, therapy, and podiatry, and that these offices should contact him within a month to schedule. Regarding the painful lump on his foot, I explained that I ordered an X-ray to rule out a foreign body and that the yarrow gatherer will further evaluate it. I stressed the importance of annual eye and dental exams for diabetic care. I advised a follow-up visit in 3 months to monitor his diabetes. Orders: Orders Influenza [id number] Immunization Today Z23 - Encounter for immunization Complete Blood Count Auto Diff Today Z00.00 - Encounter for general adult medical examination without abnormal findings Microalbumin, Random (w Creat) Today E11.9 - Type 2 diabetes mellitus without complications Vitamin D 25-OH Total Today Z00.00 - Encounter for general adult medical examination without abnormal findings UA CC w/rflx Micro + Cult Today Z00.00 - Encounter for general adult medical examination without abnormal findings TSH reflex Free T4 Today Z00.00 - Encounter for general adult medical examination without abnormal findings PSA,Total (Free>4and<10) Today Z00.00 - Encounter for general adult medical examination without abnormal findings Erythrocyte Sedimentation Rate Today Z00.00 - Encounter for general adult medical examination without abnormal findings AMB Hemoglobin A1c Today E10.9 - Type 1 diabetes mellitus without complications C Reactive Protein Today Z00.00 - Encounter for general adult medical examination without abnormal findings Comprehensive [place]. Panel Fast Today Z00.00 - Encounter for general adult medical examination without abnormal findings Lipid Panel Today Z00.00 - Encounter for general adult medical examination without abnormal findings Liver Panel Today Z00.00 - Encounter for general adult medical examination without abnormal findings Vitamin B12 and Folate Today Z00.00 - Encounter for general adult medical examination without abnormal findings XR foot LT min 3V Today E10.9 - Type 1 diabetes mellitus without complications, E11.40 - Type 2 diabetes mellitus with diabetic neuropathy, unspecified, M79.672 - Pain in left foot Referrals Psychiatry Referral F32.A - Depression, unspecified Counseling Referral F41.9 - Anxiety disorder, unspecified Podiatry Referral E10.9 - Type 1 diabetes mellitus without complications, E11.40 - Type 2 diabetes mellitus with diabetic neuropathy, unspecified, M79.672 - Pain in left foot Endocrinology Referral E10.9 - Type 1 diabetes mellitus without complications, E11.40 - Type 2 diabetes mellitus with diabetic neuropathy, unspecified Medications: New atomoxetine 100 mg PO DAILY 90 caps 3RF insulin aspart (niacinamide) 100 unit/mL (3 mL) (Fiasp FlexTouch U-100 Insulin) 5 - 15 units subcut TID PRN 15 mL 6RF BS >250 E10.9 - Type 1 diabetes mellitus without complications, E11.40 - Type 2 diabetes mellitus with diabetic neuropathy, unspecified blood-glucose sensor (Dexcom G7 Sensor device) check glucose TID with meals ad at bedtime 1 ea 1RF E10.9 - Type 1 diabetes mellitus without complications, E11.40 - Type 2 diabetes mellitus with diabetic neuropathy, unspecified gabapentin 600 mg (2 x 300 mg) PO BID 360 caps 3RF 90 days insulin degludec (Tresiba FlexTouch U-100 insulin) 35 units (0.35 mL) subcut BEDTIME 15 mL 6RF E10.9 - Type 1 diabetes mellitus without complications, E11.40 - Type 2 diabetes mellitus with diabetic neuropathy, unspecified blood-glucose,high school social studies tutor,cont (Dexcom G7 Environmental Protection Inspector) check glucose TID with meals ad at bedtime 1 ea 1RF E10.9 - Type 1 diabetes mellitus without complications, E11.40 - Type 2 diabetes mellitus with diabetic neuropathy, unspecified Discontinued nicotine Discontinued Reason: Patient no longer taking 14 mg transdermal DAILY 30 ea 0RF oseltamivir (Tamiflu) Discontinued Reason: Patient no longer taking 75 mg PO Q12H 2 caps 0RF metoclopramide HCl Discontinued Reason: Patient no longer taking 5 mg PO Q8H PRN 14 tabs 0RF nausea and vomiting ciprofloxacin HCl Discontinued Reason: Patient Completed Course 500 mg PO Q12H 6 tabs 0RF metronidazole Discontinued Reason: Patient no longer taking 500 mg PO BID 6 tabs 0RF Patient Instructions: - Go to a lab location to get your blood drawn. - You will need to be fasting for 8-12 hours beforehand (only water or black coffee is allowed). - You do not need an appointment. - Please provide a urine sample today before you leave. - Prescriptions for your SSRI, gabapentin, and insulins have been sent to [facility]. - A prescription for a Dexcom G7 has also been sent; we will let you know if your insurance approves it. - Go for an X-ray of your left foot as discussed. - Our office has sent referrals to a psychiatrist, therapist, casing material weigher, and yarrow gatherer. - Please expect them to call you within a month to schedule an appointment. - It is very important that you schedule an appointment with an eye doctor (bag machine tender) and a dentist for your annual diabetic care. - Schedule a follow-up appointment here in 3 months to check on your diabetes.
[2025-04-22 14:16] VITALS: BP 118/68; PULSE 66; RESP 14; TEMP 36.5; O2SAT 96; BMI 23.3
--- OUTSIDE RECORDS SUMMARY | 2025-04-22 18:15 | XMS_ITS | Encounter Summary ---
Author Organization [facility] Address [address] [place] [id number] Care Team Providers Care Puttying And Calking Supervisor Name Role Phone Larry Pringle MD Primary Care Provider [phone] Cami Bush PhD Unavailable [phone] Holley Fuller MD Unavailable [phone] Reyes Stephen PsyD Unavailable [phone] Cassi Berkowitz RN Unavailable [phone] Lisa Arita INSURANCE ACCOUNT EXECUTIVE Unavailable UnavailJl [place] NURSE Unavailable [phone] Darnell Cruz MD Unavailable [phone] Encounter Details Date Type Department Care Team (Late st Contact Info) Description 03/31/2023 Scanned Document [facility] DEPART[facility]NAL [facility]ICINE [place] Dr. Larry Pringle [address] [facility] [address] [place] [address] Larry Pringle MD [address] [facility] [address] [place] [address] Social History Tobacco Use Types [...] Assigned at Male 09/29/2021 11:52 AM EDT Legal Sex Male 5:33 PM EDT Gender Identity Male 09/29/2021 11:52 AM EDT Sexual Orientation Heterosexual (straight) 09/29 11:52 AM EDT documented as of this encounter Plan of Treatment Not on file documented as of this encounter Visit Diagnoses Not on filedocumented in this encounter Care Teams Puttying And Calking Supervisor Relationship Specialty Start Date End Date Larry Pringle MD [address] [address] PCP - General Internal Medicine 07/24/20 Cami Bush, PhD [facility] [place] [phone] Clinical Psychologist Psychology 12/31/20 Holley Fuller MD [address] [place] [address] [place] [address] Physician Psychiatry, General 01/04/21 Reyes Stephen PsyD [facility] [place] [address] Clinical Psychologist Psychology 01/05/21 Cassi Berkowitz, SHEREE [address] [place] [address] Registered Nurse 01/07/21 Lisa Arita LCSW [address] [place] [id number] Rn Gastroenterology Social Work 04/14/21 Jl Mcclain, COUNTY NURSE [address] [place] [address] Nurse Practitioner Psychiatry, General 04/16/21 Darnell Cruz MD [address] [place] [address] Psychiatry, General 04/20/21 documented as of this encounter
--- OUTSIDE RECORDS SUMMARY | 2025-04-22 18:15 | XMS_ITS | Clinical Summary ---
Author Organization [employer] Address [address] [facility] [address] [place] [address] Care Team Providers Care Collar Turner Name Role Phone Unavailable Primary Care Provider Unavailabl e Social History Tobacco Use Types Packs/Day Years Used Date Smoking Tobacco: Never Assessed Sex and Gender Information Value Date Recorded Sex Assigned at Not on file Legal Sex Male 11:46 AM EDT Gender Identity Not on file Sexual Orientation Not on file Plan of Treatment Health Maintenance Due Date Last Done Comments Depression Screening 1998 HIV Screening 1998 SDOH Screening 1998 Disability Screening 1998 Alcohol/Substance Use Screening 2010 Tobacco Screening 2010 Family Planning (PISQ) 2013 HPV Vaccines (1 - Male 3-dos e series) 2013 Hepatitis C Screening 2016 DTaP/Tdap/Td Vaccines (1 - Tdap) 2017 Hepatitis B Vaccines (1 of 3 - 19+ 3-dose series) 2017 COVID-19 Vaccine (1 - 2023-2 5 season) 2025 Influenza Vaccine (#1) 2025 Zoster Vaccines (1 of 2) 2048 RSV Patients and Pa tients Aged 60 years or older (1 - 1-dose 75+ series) 2073 HIB Vaccines Aged Out No longer eligi ble based on patient's age to complete this topic Hepatitis A Vaccines Aged Out No long er eligible based on patient's age to complete this topic IPV Vaccines Aged Out No longer eligi ble based on patient's age to complete this topic Meningococcal B Vaccine Aged Out No l onger eligible based on patient's age to complete this topic Meningococcal Vaccine Aged Out No lj joya eligible based on patient's age to complete this topic Pneumococcal Vaccine: Pediat rics (0 to 5 Years) and At-Risk Patients (6 to 49) Years Aged Out No longer eligible b ased on patient's age to complete this topic RSV under 20 months Aged Out No longe r eligible based on patient's age to complete this topic Rotavirus Vaccines Aged Out No longer eligible based on patient's age to complete this topic
--- OUTSIDE RECORDS SUMMARY | 2025-04-22 18:15 | XMS_ITS | Clinical Summary ---
Author Organization [facility] Address [facility] [place] [address] Phone Care Team Providers Care Battery Plate Assembler Name Role Phone Larry Pringle MD Primary Care Provider [phone] Allergies No known active allergies Medications acetone, urine, test strip Use to test urine when blood sugars over 250 on 2 consecutive checks and when ill 07/04/19 21 Active blood-glucose meter (OneTouch Verio Flex meter) misc 1 Device by Does not apply route continuous. 09/23/19 23 Active glucose blood (Blood Glucose Test) test strip Use to test BG 7 x per day 09/14/19 17 Active insulin pen,reusable,BT lispro (INPEN, FOR HUMALOG, BLUE SUBQ) Injection Device for Insulin (InPen 819-Mvob-Vewtnz g-Fiasp) NELSON Patient si Device by Does [...] Nose as needed (for severe hypoglycemia). 04/21/20 23 Active insulin degludec (Tresiba FlexTouch U-100) 100 unit/mL (3 mL) injection pen Inject 35 Units under the skin daily. 04/16/20 24 Active omeprazole (PriLOSEC) [address] capsule TAKE 1 CAPSULE BY MOUTH EVERY DAY IN THE MORNING BEFORE BREAKFAST 02/03/20 24 Active pen needle, diabetic (Insupen Pen Needle) 32 gauge x 5/32 needle Use to inject insulin 4 times daily 01/15/20 24 Active blood sugar diagnostic (OneTouch Verio test strips) test stripIndications:T ype 1 diabetes mellitus with diabetic polyneuropathy ([facility] V24, [facility] V28) Use to test sugars 3x daily. 100 each 3 06/20/20 24 Active blood-glucose sensor (Dexcom G7 Sensor) deviceIndications: Type 1 diabetes mellitus with diabetic polyneuropathy ([facility] V24, [facility] V28) Change every 10 days 9 each 3 01/11/20 25 Active insulin aspart, niacinamide, (Fiasp FlexTouch U-100 Insulin) 100 unit/mL (3 mL) injection penIndications:Typ e 1 diabetes mellitus with diabetic polyneuropathy ([facility] V24, [facility] V28) Fiasp based on insulin to carb ratio of ~1:10 (sometimes stronger) and ISF of 1:40 greater than 110, up to 50 units per day 30 mL 1 01/24/20 25 Active blood-glucose sensor (Dexcom G7 Sensor) deviceIndications: Type 1 diabetes mellitus with diabetic polyneuropathy ([facility] V24, [facility] V28) 3 each continuously. Change sensor every 10 days. 9 each 3 01/11/20 25 025 Active Problems Problem Noted Date Diagnosed Date Mixed hyperlipidemia 12/08/2020 Type 1 diabetes mellitus wit h diabetic polyneuropathy ([facility] V24, [facility] V28) 07/04/2020 DKA, type 1, not at goal ([facility] V24, [facility] V 28) 01/18/2020 DKA, type 2, not at goal ([facility] V24, [facility] V 28) 01/18/2020 Encounters Date Type Department Care Team Description 02/13/2025 [facility] [address] [address] Daily Sheikh MD 02/07/2025 [facility] [address] [address] [place] [address] Parris Chaney MA from Last 3 Months Social History Tobacco Use Types Packs/Day Years [...] 5 Years) and At-Risk Patients (6 to 49 Years) (1 of 2 - PCV) 2017 Social Influencers of Health Screening 05/25/2022 Depression Screening 06/26/2024 Diabetes: Blood Sugar Control Test (HGBA1C) 07/13/2024 01/11/2024, 01/11/2024, 07/03/2020, Additional history exists Diabetes: Annual Urine Albumin-Creatinine Ratio (uACR) 01/10/2025 01/11/2024 Diabetes: Annual GFR (Glomerular Filtration Rate) 01/10/2025 01/11/2024, 01/11/2024, 01/20/2020, Additional history exists COVID-19 Vaccine ( - 2023- season) 2025 Influenza Vaccine (#1) 2025 Cholesterol Screening (Lipid Panel) 01/10/2029 01/11/2024, 01/11/2024 RSV Immunization Adult Patients (1 - 1-dose 75+ series) 2073 HIV Screening Completed 01/11/2024 Hepatitis C Screening [...] Results * Urine Albumin Creatinine Ratio (01/11/2024) Urine Albumin Creatinine Ratio abstracted Historical Provider HEALTH MAINTENANCE Final Result * Annual BMP Blood Test (01/11/2024) Annual BMP Blood Test abstracted Historical Provider HEALTH MAINTENANCE Final Result * HIV Screening (01/11/2024) Pathologist [facility] HIV Screening abstracted Historical Provider HEALTH MAINTENANCE Final Result * Hepatitis C Screening (01/11/2024) Pathologist [facility] Hepatitis C Screening abstracted Historical Provider HEALTH MAINTENANCE Final Result * (ABNORMAL) Hemoglobin A1c (01/11/2024) Pathologist [facility] Hemoglobin A1C 8.0(A) <=5.7 % Blood Venous blood specimen / Unknown [facility] Provider LAB BLOOD ORDERABLES Xenia l Result * (ABNORMAL) Lipid panel (01/11/2024) Pathologist [facility] LDL/HDL Ratio 4 <=5 Triglycerides 114 <=150 mg/dL Cholesterol 176 <=200 mg/dL HDL 46 >=40 mg/dL LDL Cholesterol 108(A) <=100 mg/dL Blood Venous blood specimen / Unknown Historical Provider LAB BLOOD ORDERABLES Xenia l Result from Last 3 Months or Most Recently Relevant to Health Maintenance Insurance [place] Member Subscriber Plan / Payer (Ef fective 2024-Present) Name:Jewel Rehman Relation to Subscriber:Self Name:Jewel Rehman Payer ID:[id number] Group ID:Not on file Type:Not on file Address: [employer] [facility] [address] [place] [address] Care Teams Battery Plate Assembler Relationship Specialty Start Date End Date Larry Pringle MD PCP - General Internal Medicine 08/07/20
--- OUTSIDE RECORDS SUMMARY | 2025-04-22 18:15 | XMS_ITS | Clinical Summary ---
Author Organization [facility] Address [address] [place] [address] Care Team Providers Care Ambulance Assistant Name Role Phone Larry Pringle MD Primary Care Provider [phone] Cami Bush PhD Unavailable [phone] Holley Fuller MD Unavailable [phone] Reyes Stephen PsyD Unavailable [phone] Cassi Berkowitz RN Unavailable [phone] Lisa Arita [employer] Unavailable UnavailJl Potts APRN Unavailable [phone] Darnell Cruz MD Unavailable [phone] Allergies No known active allergies Medications * This document contains information received from the source organization and may not represent a complete record from that organization. glucagon powder (BAQSIMI) intranasal deviceIndicatio ns:Hypoglycemia 3 mg into one nostril (left) once as needed (for severe hypoglycemia). Active insulin aspart (NovoLOG FlexPen) 100 UNIT/ML prefilled pen injectionIndica tions:Type 1 Diabetes Mellitus Inject 5 Units under the skin 3 (three) times a day before meals. Plus correctional scale up to 30 units daily. Active insulin degludec (TRESIBA FLEXTOUCH) 100 UNIT/ML prefilled pen injectionIndica tions:Type 1 Diabetes Mellitus Inject 40 Units under the skin nightly. Active atomoxetine (Strattera) 100 MG capsule Take 1 capsule by mouth every 24 hours. 4 Active Continuous Glucose Sensor (Dexcom G7 Sensor) Misc 1 UNSPECIFIED BY DOES NOT APPLY ROUTE CONTINUOUS. CHANGE EVERY 10 DAYS 4 Active Continuous Glucose Transmitter (Dexcom G6 Transmitter) Misc Dexcom G6 Transmitter Quantity: 1 Refills: 0 Start: 25-Nov-2020 1 Active divalproex er (DEPAKOTE ER) 500 MG 24 hr tablet Take 1,000 mg by mouth daily. 4 Active OMEprazole (PriLOSEC) 20 MG capsuleIndicati ons:Gastroesoph ageal reflux disease without esophagitis TAKE 1 CAPSULE BY MOUTH EVERY DAY IN THE MORNING BEFORE BREAKFAST 90 capsule 1 5 Active Active Problems Problem Noted Date Diagnosed Date Metabolic acidosis 04/13/2022 Borderline personality disorder 09/30/2021 My Safety Plan 09/29/2021 Overview (09/29/2021): Images from the original note were not included. [facility] No information on file. MY SAFETY PLAN Name: Jewel Rehman Date: 09/29/2021 MR#: [id number] The one thing that is most important [...] Resources: [place] infoline 211, Suicide Prevention Lifeline 0-935-836-YPAC (1349), Text Hello to 632460, 608 Step 6 - Making the environment safe/access to guns: No access to weapons, no stock piled medications This tool has been adapted from the [employer] Safety Plan [facility] Form 449789 R10-18 Pg 1 of 1 Cannabis use [...] 03/28/2021 09/30/2021 Dehydration with hypernatremia 06/30/2016 09/07/2023 Immunizations Immunization Administration Dates Next Due DTaP, Unspecified 11/25/1999, [...] 89 11/08/2023 10:24 AM EDT Temperature 36.6 C (97.8 F) 04/20/2022 2:23 PM EDT Respiratory Rate 18 04/20/2022 2:23 PM EDT Oxygen Saturation 97% 11/08/2023 10: 24 AM EDT Inhaled Oxygen Concentration - - Weight 78.8 kg (173 lb 12.8 oz) 024 10:24 AM EDT Height 182.9 cm (6') 11/08/2023 10:24 AM EDT Body Mass Index 23.57 11/08/2023 10:24 AM EDT Plan of Treatment Health Maintenance Due Date Last Done Comments Ophthalmology Exam 2008 DTaP/Tdap/Td Vaccines (5 - Tdap) 2009 11/25/1999, 1998, 1998, Additional history exists HPV Vaccines (1 - Male 3-dos e series) 2013 Pneumococcal Vaccine: Pediat mayela (0-5 Years) and At-Risk Patients (6 to 49 Years) (1 of 2 - PCV) 2017 Microalbumin/Creatinine Rati o Urine 07/07/2021 07/07/2020 Hemoglobin A1C 04/12/2024 01/11/2024, 09/24, 04/17/2023, Additional history exists Foot Exam 11/07/2024 11/08/2023, 10/24, 11/08/2023, Additional history exists Creatinine with GFR 01/10/2025 01/11/2024, 04/20/2022, 04/16/2022, Additional history exists Lipid Panel 01/10/2025 01/11/2024 Influenza Vaccine 01/24/2025 COVID-19 Vaccine (4 - 2024-2 6 season) 2025 06/29/2021, 11/11/2020, 10/20/2020 Hepatitis B Vaccines Completed 1998, 1998, 1998 [...] PM EDT) Cholesterol, Total 166 <200 mg/dL [employer] Cholesterol, HDL 44 > OR = 40 mg/dL [employer] Triglycerides 104 <150 mg/dL [employer] LDL Cholesterol 102(H) mg/dL (calc) [employer] Comment: Reference range: <100 Desirable range <100 mg/dL for primary prevention; <70 mg/dL for patients with CHD or diabetic patients with > or = 2 CHD risk factors. LDL-C is now calculated using the Gilmar-Hernandez calculation, which is a validated novel method providing better accuracy than the Friedewald equation in the estimation of LDL-C. Gilmar SS et al. FAITH. 2013;310(87): 5523-1880 (http://okay.com.BizArk/faq/OSP196) Cholesterol/HDL Ratio 3.8 <5.0 (calc) [employer] Non HDL Chol. (LDL+VLDL) 122 <130 mg/dL (calc) [employer] Comment: For patients with diabetes plus 1 major ASCVD risk factor, treating to a non-HDL-C goal of <100 mg/dL (LDL-C of <70 mg/dL) is considered a therapeutic option. Blood specimen (specimen) Blood specimen / Unknown 01/11/2024 1:27 PM EDT 01/11/2024 1:28 PM EDT Narrative [facility] - 01/12/2024 4:36 AM EDT FASTING:YES FASTING: YES [facility] LAB BLOOD ORDERABLES Final Result [facility] [address] [place] [address] * HIV 1/2 Ag/Ab CMIA Reflex to Confirmation (01/11/2024 1:27 PM EDT) [facility] HIV Ag/Ab, 4th Gen NON-REACT LIZZIE NON-REACT LIZZIE [employer] Comment: HIV-1 antigen and HIV-1/HIV-2 antibodies were not detected. There is no laboratory evidence of HIV infection. PLEASE NOTE: This information has been disclosed to you from records whose confidentiality may be protected by state law. If your state requires such protection, then the state law prohibits you from making any further disclosure of the information without the specific written consent of the person to whom it pertains, or as otherwise permitted by law. A general authorization for the release of medical or other information is NOT sufficient for this purpose. For additional information please refer to http://education.Padcom/faq/KKT687 (This link is being provided for informational/ educational purposes only.) The performance of this assay has not been clinically validated in patients less than 2 years old. Blood specimen (specimen) Blood specimen / Unknown 01/11/2024 1:27 PM EDT 01/11/2024 1:28 PM EDT Narrative [facility] - 01/12/2024 4:36 AM EDT FASTING:YES FASTING: YES [facility] LAB BLOOD ORDERABLES Final Result Performing Organization Address City/State/[facility] Co de Phone Number [facility] [address] [place] [phone] * (ABNORMAL) HEMOGLOBIN A1C WITH ESTIMATED AVERAGE GLUCOSE (01/11/2024 1:27 PM EDT) Hemoglobin A1C 8.0(H) <5.7 % of total Hgb [employer] Comment: For someone without known diabetes, a [...] A1c for diagnosis of diabetes for children. Estimated Average Glucose (mg/dL) 183 mg/dL [employer] Estimated Average Glucose (mmol/L) 10.1 mmol/L [employer] [facility] [employer] Comment: This test was performed on the [employer] jordan c503 platform. Effective 08/28/23, a change in test platforms from the [employer] Senior Research Scientist to the Ana Laura jordan c503 may have shifted HbA1c results compared to historical results. Based on laboratory validation testing conducted at [facility], the Ana Laura platform relative to the [...] 1:27 PM EDT 01/11/2024 1:28 PM EDT [facility] - 01/12/2024 4:36 AM EDT FASTING:YES FASTING: YES [facility] LAB BLOOD ORDERABLES Final Result Performing Organization Address [facility] de Phone Number [facility] [address] [place] [phone] * HEPATITIS C VIRUS (HCV) ANTIBODY (01/11/2024 1:27 PM EDT) [facility] Hepatitis C Antibody NON-REACT LIZZIE NON-REACT LIZZIE [employer] Comment: HCV antibody was non-reactive. There is no laboratory evidence of HCV infection. In most cases, no further action is required. However, if recent HCV exposure is suspected, a test for HCV RNA (test code 56645) is suggested. For additional information please refer to http://education.Padcom/faq/EVT00z9 (This link is being provided for informational/ educational purposes only.) 01/11/2024 1:27 PM EDT 01/11/2024 1:28 PM EDT [facility] - 01/12/2024 4:36 AM EDT FASTING:YES FASTING: YES [facility] LAB BLOOD ORDERABLES Final Result Performing Organization Address [facility] de Phone Number [facility] [address] [place] [phone] * Comprehensive Metabolic Panel (01/11/2024 1:27 PM EDT) [facility] Glucose 95 65 - 99 mg/dL [employer] Comment: Fasting reference interval Blood Urea Nitrogen (BUN) 11 7 - 25 mg/dL [employer] Creatinine 0.90 0.60 - 1.24 mg/dL [employer] Creatinine w/ eGFR 122 > OR = 60 mL/min/1. 73m2 [employer] BUN/Creatinine Ratio SEE NOTE: 6 - 22 (calc) [employer] Comment: Not Reported: BUN and Creatinine are within reference range. Sodium 139 135 - 146 mmol/L [employer] Potassium 5.1 3.5 - 5.3 mmol/L [employer] Chloride 103 98 - 110 mmol/L [employer] CO2 25 20 - 32 mmol/L [employer] Calcium 9.7 8.6 - 10.3 mg/dL [employer] Protein, Total 6.8 6.1 - 8.1 g/dL [employer] Albumin 4.4 3.6 - 5.1 g/dL [employer] Globulin 2.4 1.9 - 3.7 g/dL (calc) [employer] Albumin/Globuli n Ratio 1.8 1.0 - 2.5 (calc) [employer] Bilirubin, Total 0.4 0.2 - 1.2 mg/dL [employer] Alkaline Phosphatase 69 36 - 130 U/L [employer] Aspartate Aminotrans (AST) 15 10 - 40 U/L [employer] Alanine Aminotrans (ALT) 10 9 - 46 U/L [employer] Blood specimen (specimen) Blood specimen / Unknown 01/11/2024 1:27 PM EDT 01/11/2024 1:[address] [facility] - 01/12/2024 4:36 AM EDT FASTING:YES FASTING: YES [facility] LAB BLOOD ORDERABLES Final Result [facility] [employer] [address] [place] [phone] from Last 3 Months or Most Recently Relevant to Health Maintenance Insurance [facility] Advance Directives * Full Code (Latest Code [...] 11:39 AM 05/23/2021 2:51 AM Care Teams Ambulance Assistant Relationship Specialty Start Date End Date Larry Pringle MD [address] [facility] [address] [place] [address] PCP - General Internal Medicine 07/24/20 Cami Bush, PhD [address] [facility] [address] [place] [address] Clinical Psychologist Psychology 12/31/20 Holley Fuller MD [address] [place] [address] C/L Ser,[place] [address] Physician Psychiatry, General 01/04/21 Reyes Stephen PsyD [address] [place] [phone] Clinical Psychologist Psychology 01/05/21 Cassi Berkowitz, SHEREE [address] [place] [address] Registered Nurse 01/07/21 Lisa Arita LCSW [address] [place] [phone] [employer] And Beverage Server Social Work 04/14/21 Jl Mcclain, ANUEL [address] [place] [phone] Nurse Practitioner Psychiatry, General 04/16/21 Darnell Cruz MD [address] [place] [phone] Psychiatry, General 04/20/21
--- OUTSIDE RECORDS SUMMARY | 2025-04-22 18:15 | XMS_ITS ---
Author Name [facility] Organization Unknown History of Medication Use Medication Directions Dispensed Refills Start Date End Date Stat us blood-glucose sensor (Dexcom G7 Sensor) device 3 each continuously. Change sensor every 10 days. 01/10/2025 active insulin aspart, niacinamide, (Fiasp FlexTouch U-100 Insulin) 100 unit/mL (3 mL) injection pen INJECT 5-15 UNITS UNDER THE SKIN 3 (THREE) TIMES A DAY BEFORE MEALS. 08/16/2024 active insulin degludec (Tresiba FlexTouch U-100) 100 unit/mL (3 mL) injection pen Inject 35 Units under the skin daily. 04/16/2024 active gabapentin (NEURONTIN) 300 mg capsule Take 2 capsules (600 mg total) by mouth 3 (three) times a day. 04/03/2024 active gabapentin (NEURONTIN) 300 MG capsule Take 2 capsules (600 mg total) by mouth 3 (three) times a day. 04/03/2024 active Fiasp FlexTouch 100 UNIT/ML SOPN INJECT 5-15 UNITS UNDER THE SKIN 3 (THREE) TIMES A DAY BEFORE MEALS. 03/26/2024 active gabapentin (NEURONTIN) 300 MG capsule Take 1 capsule (300 mg total) by mouth 2 (two) times a day. Start one tablet at bedtime for a week 02/19/2024 active omeprazole (PriLOSEC) 20 MG capsule TAKE 1 CAPSULE BY MOUTH EVERY DAY IN THE MORNING BEFORE BREAKFAST 02/03/2024 active omeprazole (PriLOSEC) [address] capsule TAKE 1 CAPSULE BY MOUTH EVERY DAY IN THE MORNING BEFORE BREAKFAST 02/03/2024 active insulin aspart (NovoLOG FLEXPEN) 100 UNIT/ML injection Inject 5-15 Units under the skin 3 (three) times a day before meals. 01/15/2024 aborted insulin aspart (NovoLOG FLEXPEN) 100 UNIT/ML injection Inject 5-15 Units under the skin 3 (three) times a day before meals. 01/15/2024 5 active Strattera 100 mg capsule TAKE 1 CAPSULE BY MOUTH EVERY DAY 12/26/2023 4 active Strattera 100 mg capsule take 1 capsule by oral route every day 10/30/2023 active Insulin Degludec (Tresiba FlexTouch) 100 UNIT/ML SOPN Inject 35 Units under the skin daily. 10/13/2023 4 active Insulin Aspart, w/Niacinamide, (Fiasp FlexTouch) 100 UNIT/ML SOPN Inject 5-15 Units under the skin 3 (three) times a day before meals. 10/13/2023 4 aborted Insulin Aspart, w/Niacinamide, (Fiasp FlexTouch) 100 UNIT/ML SOPN Inject 5-15 Units under the skin 3 (three) times a day before meals. 10/13/2023 active Insulin Degludec (Tresiba FlexTouch) 100 UNIT/ML SOPN Inject 35 Units under the skin daily. 10/13/2023 active Strattera 80 mg capsule take 1 capsule by oral route every day 08/30/2023 4 completed Strattera 40 mg capsule take 1 capsule by oral route every day in the morning 06/29/2023 4 completed Insulin Degludec (Tresiba FlexTouch) 100 UNIT/ML SOPN Inject 40 Units under the skin daily. 04/22/2023 4 aborted Glucagon (Baqsimi Two Pack) 3 MG/DOSE POWD spray or apply 3 mg inside Nose as needed (for severe hypoglycemia). 04/21/2023 active glucagon (Baqsimi) 3 mg/actuation nasal spray spray or apply 3 mg inside Nose as needed (for severe hypoglycemia). 04/21/2023 active Depakote ER 500 mg tablet,extended release take 2 tablet by oral route every day 04/11/2023 4 active Insulin Degludec (Tresiba FlexTouch) 100 UNIT/ML SOPN Inject 55 Units under the skin daily. 12/26/2022 3 aborted Blood Glucose Monitoring Suppl (OneTouch Verio Flex System) w/Device KIT 1 Device by Does not apply route continuous. 09/22/2022 active Injection Device for Insulin (InPen 760-Wynj-Ogcpada-Huma sp) NELSON 1 Device by Does not apply route 3 (three) times a day with meals. 09/22/2022 active PANTOprazole (PROTONIX) 40 MG EC tablet Take 1 tablet (40 mg total) by mouth every morning before breakfast. 04/20/2022 2 active ondansetron (ZOFRAN-ODT) 4 MG disintegrating tablet Take 1 tablet (4 mg total) by mouth 3 times daily (every 8 hours) as needed for nausea or vomiting. Place tablet on tongue to dissolve. 04/11/2022 active insulin aspart (NovoLOG FLEXPEN) 100 UNIT/ML injection Inject 5 Units under the skin 3 (three) times a day before meals. Plus correctional scale up to 30 units daily 01/13/2022 4 aborted Glucagon (Baqsimi Two Pack) 3 MG/DOSE POWD spray or apply 3 mg inside Nose as needed (for severe hypoglycemia). 01/13/2022 3 active mirtazapine (REMERON) 15 MG tablet Take 1 tablet (15 mg total) by mouth every night at bedtime. 01/04/2021 3 aborted omeprazole (PriLOSEC) 40 MG capsule Take 1 capsule (40 mg total) by mouth daily. 07/07/2020 3 aborted Insulin Pen Needle 32G X 4 MM MISC Use to inject insulin 4 times daily 06/04/2015 4 active blood sugar diagnostic (OneTouch Verio test strips) test strip Use to test sugars 3x daily. 06/04/2015 active Insulin Pen Needle 32G X 4 MM MISC Use to inject insulin 4 times daily 06/04/2015 active glucagon powder (BAQSIMI) intranasal device 3 mg into one nostril (left) once as needed (for severe hypoglycemia). active insulin aspart (NovoLOG FlexPen) 100 UNIT/ML prefilled pen injection Inject 5 Units under the skin 3 (three) times a day before meals. Plus correctional scale up to 30 units daily. active insulin degludec (TRESIBA FLEXTOUCH) 100 UNIT/ML prefilled pen injection Inject 40 Units under the skin nightly. active Problems Problem Status Onset Date Problem Type Date of Resolution Source Paresthesia active EncounterDiagnosisAct CTTHNEMG Mixed hyperlipidemia active 2020-12-08 ProblemAct [facility]SFR[facility] Type 1 diabetes mellitus with diabetic polyneuropathy (CMS/HCC V24, CMS/[facility] V28) active 2020-07-04 ProblemAct [facility]_THSFR[facility] DKA, type 1, not at goal (CMS/HCC V24, CMS/[facility] V28) active 2020-01-18 ProblemAct [facility]_THS[facility] DKA, type 2, not at goal (CMS/HCC V24, CMS/[facility] V28) active 2020-01-18 ProblemAct [facility] SIRS (systemic inflammatory response syndrome) active 2019-07-17 ProblemAct [facility] TRACIE (acute kidney injury) active 2016-06-30 ProblemAct [facility] Overdose active 2021-09-26 ProblemAct [facility] Dehydration active 2021-05-23 ProblemAct [facility] Thrombocytosis active 2020-07-[address] COVID-19 active 2022-04-13 ProblemAct [facility] Leukocytosis active 2019-07-17 ProblemAct [facility] Hypernatremia active 2016-06-30 ProblemAct [facility] T Type 1 diabetes active 2019-07-17 ProblemAct [facility] Alteration in patient safety due to identified suicide risk active 2021-09-29 ProblemAct [facility] DKA (diabetic ketoacidosis) active 2021-05-23 ProblemAct [facility] Diabetic ketoacidosis without coma associated with type 1 diabetes mellitus active 2020-11-20 ProblemAct [facility] Prolonged QT interval active 2021-05-23 ProblemAct [facility] Metabolic acidosis active 2022-04-13 ProblemAct [facility] Borderline personality disorder active 2021-09-30 ProblemAct [facility] Tachycardia active 2019-07-17 ProblemAct [facility] Hypokalemia active 2021-09-26 ProblemAct [facility] Cannabis use disorder, severe, dependence active 2021-09-29 ProblemAct [facility] Hyponatremia active 2019-07-17 ProblemAct [facility] Noncompliance with medications active 2020-07-25 ProblemAct [facility] High anion gap metabolic acidosis active 2019-07-17 ProblemAct [facility] Anxiety and depression active 2020-07-25 ProblemAct [facility] Hypomagnesemia active 2021-09-26 ProblemAct [facility] Immunizations Vaccine Date Source Lot Number Status Influenza Inactivated/Split Preservative Free IM 04/05/2021 [facility] completed Influenza Inactivated/Split Preservative Free IM 07/26/2020 [facility] completed Encounters Encounter Type Encounter Reason Primary Diagnosis Location Date Ambulatory [facility] 04/23/2024 [facility] 04/18/2024 Ambulatory 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 [facility] 04/16/2024 Ambulatory 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 [facility] [place] 04/16/2024 Ambulatory [facility] 04/02/2024 Ambulatory 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 [facility] 04/02/2024 Ambulatory [facility] 03/13/2024 [facility]ulatory [facility] 01/17/2024 Ambulatory 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 [facility] [place] 01/15/2024 Ambulatory [facility] 01/02/2024 Ambulatory [facility] 12/26/2023 Ambulatory 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 [facility] 11/24/2023 Ambulatory 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 [facility] [place] 11/24/2023 Ambulatory Annual Exam Annual Exam [facility] 11/08/2023 Ambulatory [facility] 10/30/2023 [facility]ulatory [facility] 10/30/2023 [facility]ulatory [facility] 10/20/2023 Ambulatory 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 [facility] 10/09/2023 Ambulatory [facility] 09/18/2023 [facility]ulatory [facility] 09/18/2023 [facility]ulatory [facility] 08/30/2023 [facility]ulatory [facility] 08/17/2023 [facility]ulatory [facility] 07/26/2023 [facility]ulatory [facility] 07/19/2023 [facility]ulatory [facility] 06/29/2023 [facility]ulatory [facility] 06/22/2023 [facility]ulatory [facility] 06/12/2023 [facility]ulatory [facility] 06/02/2023 [facility]ulatory [facility] 05/17/2023 [facility]ulatory [facility] 04/21/2023 Ambulatory Mixed hyperlipidemia Mixed hyperlipidemia [facility] 04/21/2023 Ambulatory [facility] 04/11/2023 [facility]ulatory [facility] 03/20/2023 [facility]ulatory [facility] 03/20/2023 Emergency Chest pain, unspecified [facility] 04/20/2022 Inpatient Acidosis, unspecified [facility] 04/13/2022 Emergency Vomiting, unspecified [facility] 04/11/2022 Inpatient Poisoning by unspecified drugs, medicaments and biological substances, accidental (unintentional), initial encounter [facility] 09/26/2021 Inpatient Type 2 diabetes mellitus with ketoacidosis without coma [facility] 05/23/2021 Emergency Depression, unspecified [facility] 03/27/2021 Care Team Organization Name Specialty Phone Email Start Date End Da te [facility] 05/04/2024 [facility] 05/02/2024 [place] [facility] 2023 [facility] Prompt Panel 08/28/2023 06/26/2024 [facility] 04/27/2023 024 [facility] 03/20/20232022 [facility] 03/20/2023 [facility] 03/17/2023 024 [facility] 01/07/2025 [facility] 10/04/2022 10/04/2022 [facility] 08/20/2022 [facility] 04/20/2022 [facility] 05/23/2021 04/20/2022
--- OUTSIDE RECORDS SUMMARY | 2025-04-22 18:15 | XMS_ITS | Clinical Summary ---
Author Organization [facility] Address [address] [place] [address] Care Team Providers Care Roof Truss Machine Tender Name Role Phone Larry Pringle MD Primary Care Provider [phone] Allergies No known active allergies Medications Medication [...] 04/16/2024 Active Injection Device for Insulin (InPen 792-Fasw-Inckhwl-Huma sp) DEVIIndications:Type 1 diabetes mellitus with diabetic [...] 76 04/16/2024 11:25 AM EDT Temperature 36.4 C (97.5 F) 03/04/2021 11:47 AM EDT Respiratory Rate 11 01/20/2020 12:00 PM EDT [...] Foot Exam 2016 Preventative Health Evaluation 2016 Hemoglobin A1C Due 07/13/2024 01/11/2024, 0 10/04/2023, 04/17/2023, Additional history exists Diabetes: Microalbumin Test 01/10/2025 01/11/2024, 0 07/07/2020 Influenza Vaccine (#1) 2025 Hepatitis B Vaccines Completed 1998, 1998, 1998 RSV Ped < 20 months Aged Out No longe r eligible based on patient's age to complete this topic Advance Directives For more information, please contact: [phone] Latest Code Status on File Code Status Date Activated Date Inactivated Comments Full Code 01/18/2020 6:30 AM 01/20/2020 9:42 PM This code status was ascertained in the following way: discussion with patient . Care Teams Roof Truss Machine Tender Relationship Specialty Start Date End Date Larry Pringle MD PCP - General Internal Medicine 08/07/20
== END 2025-04-22 15:11 | disposition home or self-care (01) ==
LOC: HO.HMCSH 13:56
PROVIDERS: PCP Physician Assistant Medical; Visit Provider Physician Assistant Medical
DX: Z00.00 Encounter for general adult medical examination without abnormal findings (principal); E11.40 Type 2 diabetes mellitus with diabetic neuropathy, unspecified; F31.9 Bipolar disorder, unspecified; F90.9 Attention-deficit hyperactivity disorder, unspecified type; F32.A Depression, unspecified; M79.672 Pain in left foot; M54.30 Sciatica, unspecified side; Z23 Encounter for immunization

== ENCOUNTER 2025-04-22 13:56 | Outpatient (REF) | payer MEDICAID, SELFPAY ==
[2025-04-22 21:14] LABS: Appearance Urine Clear; Glucose Urine UA 500 mg/dL (Negative); PH 6.5 (5.0-9.0); Specific Gravity - Urine 1.020 (1.005-1.025)
== END 2025-04-22 13:57 | disposition home or self-care (01) ==
LOC: HO.LAB 13:56
PROVIDERS: PCP Physician Assistant Medical; Visit Provider Physician Assistant Medical
DX: Z00.00 Encounter for general adult medical examination without abnormal findings (principal); Z28.82 Immunization not carried out because of caregiver refusal; E10.9 Type 1 diabetes mellitus without complications; E11.40 Type 2 diabetes mellitus with diabetic neuropathy, unspecified; F90.9 Attention-deficit hyperactivity disorder, unspecified type; F31.9 Bipolar disorder, unspecified; F32.A Depression, unspecified; M79.672 Pain in left foot; M54.30 Sciatica, unspecified side; Z79.82 Long term (current) use of aspirin; Z79.4 Long term (current) use of insulin; Z79.899 Other long term (current) drug therapy
CPT/HCPCS: 81003; 82570; 83036; 96127; 99202; 99385